=== PATIENT | male | born 1955 | race Caucasian/White ===

== ENCOUNTER 2020-06-05 07:55 | Outpatient (REF) | payer OTHER, SELFPAY ==
[2020-06-05 10:13] LABS: MANUAL DIFF FLAG NO
[2020-06-05 10:16] LABS: Basophils Absolute Auto 0.1 X10*3/uL (0.0-0.2); Basophils Percent Auto 0.7 % (0-2); Eosinophils Absolute Auto 0.5 X10*3/uL (0.0-0.4); Eosinophils Percent Auto 4.8 % (0-4); Hemoglobin 14.6 g/dl (14.0-18.0); Imm Gran Abs Auto 0.06 X10*3/uL (0.00-0.03); Imm Gran Pct Auto 0.6 % (0.0-0.4); Lymphocytes Absolute Auto 2.3 X10*3/uL (1.2-4.9); Mean Corpuscular HGB Conc 32.4 g/dl (31.0-36.0); Mean Corpuscular Hemoglobin 27.4 pg (27.0-33.0); Mean Corpuscular Volume 84.6 fL (80-98); Mean Platelet Volume 10.7 fL (9.4-12.4); Monocytes Absolute Auto 0.8 X10*3/uL (0.1-1.2); Monocytes Percent Auto 7.7 % (2-11); Neutrophils Absolute Auto 6.2 X10*3/uL (2.0-8.3); Neutrophils Percent Auto 63.2 % (45-73); Platelet Count 248 X10*3/uL (160-400); Red Blood Count 5.32 X10*6/uL (4.60-5.80); Red Cell Distribution Width 12.7 % (11.0-16.0); White Blood Count 9.8 X10*3/uL (4.8-10.8)
[2020-06-05 10:38] LABS: Alanine Aminotransferase 24 U/L (0-40); Albumin Level 4.6 g/dL (3.5-5.0); Alkaline Phosphatase 54 U/L (39-117); Anion Gap 13 (12-20); Aspartate Amino Transferase 16 U/L (5-37); Bilirubin Total 0.6 mg/dL (0.0-1.0); Blood Urea Nitrogen 18 mg/dL (9-16); Calcium 9.1 mg/dL (8.4-10.2); Carbon Dioxide 29 mmol/L (22-29); Chloride 102 mmol/L (96-108); Cholesterol 160 mg/dL; Estimated Glomerular Filt Rate > 60; Glucose Fasting 215 mg/dL (60-99); HDL Cholesterol 55 mg/dL; LDL Cholesterol Calculated 86 mg/dl; Potassium 4.8 mmol/l (3.3-5.1); Sodium 139 mmol/L (135-145); Total Protein 6.4 g/dL (6.5-8.0); Triglycerides 97 mg/dL
[2020-06-05 11:23] LABS: Creatinine Urine 152.44 mg/dL; Microalbum/Creatinine Ratio Ur 8.5 ug/mg cr
[2020-06-06 17:52] LABS: LDL Cholesterol Direct 92 mg/dL (<100)
== END 2020-06-05 07:56 | disposition home or self-care (01) ==
LOC: HO.10HDL 07:55
PROVIDERS: Visit Provider Internal Medicine Endocrinology, Diabetes & Metabolism
DX: E11.65 Type 2 diabetes mellitus with hyperglycemia (principal)
CPT/HCPCS: 36415; 80053; 80061; 82043; 83721; 85025

== ENCOUNTER → 2020-06-19 15:29 | Outpatient (BNVA) | payer OTHER, SELFPAY | PROVIDERS: PCP Internal Medicine; Referring Provider Internal Medicine; Visit Provider Internal Medicine Endocrinology, Diabetes & Metabolism | DX: E11.65 Type 2 diabetes mellitus with hyperglycemia (principal); Z79.4 Long term (current) use of insulin; E78.5 Hyperlipidemia, unspecified; E66.9 Obesity, unspecified; I10 Essential (primary) hypertension | CPT/HCPCS: 82947 ==

== ENCOUNTER → 2020-08-29 14:57 | Outpatient (BNVA) | payer OTHER, SELFPAY | PROVIDERS: PCP Internal Medicine; Visit Provider Orthopaedic Surgery ==

== ENCOUNTER → 2020-09-25 15:34 | Outpatient (BNVA) | payer OTHER, SELFPAY | PROVIDERS: PCP Internal Medicine; Visit Provider Internal Medicine Endocrinology, Diabetes & Metabolism | DX: E11.65 Type 2 diabetes mellitus with hyperglycemia (principal); Z79.4 Long term (current) use of insulin; E78.5 Hyperlipidemia, unspecified; I10 Essential (primary) hypertension; E66.9 Obesity, unspecified | CPT/HCPCS: 82947 ==

== ENCOUNTER 2020-12-26 15:16 | Outpatient (REF) | payer OTHER, SELFPAY ==
[2020-12-26 16:30] LABS: MANUAL DIFF FLAG NO
[2020-12-26 16:37] LABS: Basophils Absolute Auto 0.1 X10*3/uL (0.0-0.2); Basophils Percent Auto 0.4 % (0-2); Eosinophils Absolute Auto 0.2 X10*3/uL (0.0-0.4); Eosinophils Percent Auto 1.2 % (0-4); Hematocrit 48.8 % (42-52); Hemoglobin 15.8 g/dl (14.0-18.0); Imm Gran Abs Auto 0.09 X10*3/uL (0.00-0.03); Imm Gran Pct Auto 0.6 % (0.0-0.4); Lymphocytes Absolute Auto 1.4 X10*3/uL (1.2-4.9); Lymphocytes Percent Auto 8.5 % (20-40); Mean Corpuscular HGB Conc 32.4 g/dl (31.0-36.0); Mean Corpuscular Hemoglobin 27.1 pg (27.0-33.0); Mean Corpuscular Volume 83.8 fL (80-98); Mean Platelet Volume 10.8 fL (9.4-12.4); Monocytes Absolute Auto 1.4 X10*3/uL (0.1-1.2); Monocytes Percent Auto 8.8 % (2-11); Neutrophils Absolute Auto 13.2 X10*3/uL (2.0-8.3); Neutrophils Percent Auto 80.5 % (45-73); Platelet Count 216 X10*3/uL (160-400); Red Blood Count 5.82 X10*6/uL (4.60-5.80); Red Cell Distribution Width 13.2 % (11.0-16.0); White Blood Count 16.3 X10*3/uL (4.8-10.8)
[2020-12-26 16:58] LABS: Anion Gap 18 (12-20); Blood Urea Nitrogen 18 mg/dL (9-16); Calcium 9.1 mg/dL (8.4-10.2); Carbon Dioxide 26 mmol/L (22-29); Chloride 99 mmol/L (96-108); Estimated Glomerular Filt Rate > 60; Glucose Random 248 mg/dL (60-115); Potassium 4.7 mmol/L (3.3-5.1); Sodium 138 mmol/L (135-145)
== END 2020-12-26 15:17 | disposition home or self-care (01) ==
LOC: HO.HMGCLDS 15:16
PROVIDERS: PCP Internal Medicine; Visit Provider Nurse Practitioner Family
DX: R10.9 Unspecified abdominal pain (principal)
CPT/HCPCS: 36415; 80048; 85025

== ENCOUNTER → 2021-01-01 15:26 | Outpatient (BNVA) | payer OTHER, SELFPAY | PROVIDERS: PCP Internal Medicine; Visit Provider Internal Medicine Endocrinology, Diabetes & Metabolism | DX: E11.65 Type 2 diabetes mellitus with hyperglycemia (principal); E78.5 Hyperlipidemia, unspecified; I10 Essential (primary) hypertension; E66.9 Obesity, unspecified; Z79.4 Long term (current) use of insulin | CPT/HCPCS: 82947 ==

== ENCOUNTER → 2021-07-18 07:30 | Outpatient (BNVA) | payer OTHER, SELFPAY | PROVIDERS: PCP Internal Medicine; Visit Provider Nurse Practitioner Gerontology | DX: E11.65 Type 2 diabetes mellitus with hyperglycemia (principal); E78.5 Hyperlipidemia, unspecified; E66.9 Obesity, unspecified; I10 Essential (primary) hypertension; Z79.4 Long term (current) use of insulin; Z68.35 Body mass index [BMI] 35.0-35.9, adult | CPT/HCPCS: 82947 ==

== ENCOUNTER 2021-09-13 06:38 | Day surgery (SDC) | payer MEDICARE, SELFPAY ==
[2021-09-13 06:49] VITALS: BMI 32.6
[2021-09-13 07:02] VITALS: BP 133/68; PULSE 66; RESP 16; TEMP 36.3; O2SAT 95
[2021-09-13] MEDS: Lactated Ringers 1,000 ML 80 ML IVCONT (07:17)
--- NOTE | 2021-09-13 07:29 | P.CONAN_ITS ---
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) Diabetes type 2, uncontrolled (Acute) Past Medical History Medical History (Updated 09/09/21 @ 10:58 by Apolonia Pedersen, RN) Diabetes mellitus Diabetes type 2, uncontrolled Dyslipidemia 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 Obesity Obesity (BMI 30-39.9) ELLYN (obstructive sleep apnea) Functional capacity: independent ambulation Family History Family History Father Prostate cancer Mother Hypertension Hypercholesterolemia Maternal Grandmother Alzheimers disease Maternal Grandfather Heart disease Family history of problems with anesthesia: No Surgical History Surgical History (Updated 09/09/21 @ 10:58 by Apolonia Pedersen RN) History of removal of cyst History of tonsillectomy History of uvulectomy Hx of colonoscopy History of Problems with Anesthesia: No Social History Social History Housing: House Alcohol intake: current Alcohol intake frequency: 0-2 drinks per day Alcohol type: wine Patient Tobacco Use Status: Never used Tobacco e-Cigarette/Vaping Use: Never Used Use of substances other than those prescribed or required for medical reasons: Yes Substance Use Frequency: Daily Are you DNR?: No Advance Directives: No Advance Directives Information Provided: Yes Recently lost weight without trying: No Meds Allergies Allergy/AdvReac Type Severity Reaction Status Date / Time No Known Allergies Allergy Verified 09/09/21 10:52 Active Medications: Current Medications Sodium Biphosphate/Sodium Phosphate (Sodium Phosphate,[place]-Dibasic 133 Ml Enema) 133 ml NH ONCE PRN PRN Reason: Poor Colonoscopy Prep Results Home Medications Medication Instructions Recorded Confirmed Last Taken Type dicyclomine 10 mg capsule 10 mg PO QID PRN 09/09/21 09/09/21 Unknown History Exam Exam Date and Time: September 13, 2021 0729 Height,Weight and Vital Signs: Height 5 ft 8 in Weight 97.522 kg Last Vital Signs Temp 97.4 F 09/13/21 07:02 Pulse 66 09/13/21 07:02 Resp 16 09/13/21 07:02 BP 133/68 09/13/21 07:02 Pulse Ox 95 09/13/21 07:02 Airway Mallampati Class: IV TM Dist: >3cm Neck ROM: Full Loose/Missing/Broken Teeth: Yes Heart: rrr Lungs: bl breath sounds Assessment and Plan Assessment Anesthesia Assessment: Anesthesia Plan Discussed Final Anesthetic Review Family History of Problems with Anesthesia: No History of Problems with Anesthesia: No NPO: Yes ASA Class: III Final Preanesthetic Review: Meds/Allgs Chart Reviewed, Consent Obtained/Reviewed and Anes Risks/Benef Reviewed Patient Risk: High Procedure Risk: Intermediate Anesthetic Plan Anesthetic Plan: MAC: Disposition: Standard PACU
--- NOTE | 2021-09-13 08:39 | PM.OP ---
Brief Operative Note Date of Service: 09/13/21 Pre-op diagnosis: Screening Post-op diagnosis: other (Colon polyps) Procedure: Colonoscopy to the cecum and TI with cold snare polypectomy and bx/removal of polyps Surgeon: Tommie Chu Anesthesia: MAC Was an Asbestos Cloth Inspector used for this Procedure?: No Estimated blood loss (mL): 2.0 Pathology: other (A. Cecal polyp B. Transverse colon polyp C. Polyp at 20cm) Condition: stable Disposition: PACU
[2021-09-13 08:42] VITALS: BP 117/59; PULSE 69; RESP 16; TEMP 37.1; O2SAT 96
[2021-09-13 08:57] VITALS: BP 129/65; PULSE 70; RESP 16; TEMP 36.6; O2SAT 97
--- NOTE | 2021-09-13 09:58 | OP_ITS ---
SURGEON: Tommie Chu MD INDICATIONS: The patient presents for evaluation of colorectal cancer screening and personal history of tubular adenoma of the colon. Full consent has been obtained from him for this, including risks of bleeding and perforation. PREOPERATIVE DIAGNOSIS: Colorectal cancer screening and personal history of tubular adenomas of the colon. POSTOPERATIVE DIAGNOSIS: PROCEDURE PERFORMED: Colonoscopy to the cecum and terminal ileum with cold snare polypectomy and biopsy and removal of polyps. ESTIMATED BLOOD LOSS: COMPLICATIONS: ANESTHESIA: Medication used, monitored anesthesia care. ASSISTANTS: SPECIMENS: POSTOPERATIVE DIAGNOSES: Colorectal cancer screening and personal history of tubular adenomas of the colon, colon polyp, sigmoid diverticulosis, and internal hemorrhoids. DESCRIPTION OF PROCEDURE: The patient was placed in the left lateral decubitus position the digital rectal exam revealed no abnormalities. The Olympus video pediatric colonoscope was entered into the rectum and advanced easily to the cecum. Once in the cecum, I did identify normal-appearing cecal pouch other than a 4 mm polyp, which was removed with a cold biopsy forceps completely. The terminal ileum was cannulated and appeared normal. The scope was withdrawn back in the colon. The entire cecum and ileocecal valve otherwise appeared normal. The scope was slowly withdrawn assessing all mucosal surfaces carefully. Preparation was for the most part excellent, although there were some small areas of liquid stool, which were irrigated and suctioned away as best as possible. In the transverse colon was an approximately 4 mm polyp, which was biopsied and completely removed with a cold biopsy forceps. At 20 cm, was an approximately 5 or 6 mm polyp, which was removed with a cold snare polypectomy and recovered by suction. The polypectomy site appeared clean, without any sign of residual polyp nor bleeding. I did not visualize any other polyps, colitis, nor angiodysplasia. There was a mild amount of sigmoid diverticulosis and several diverticula noted in the ascending colon as well. In the rectum, the scope was retroflexed visualizing internal hemorrhoids, but no other pathology. The rectal mucosa appeared normal. Scope was straightened and withdrawn from the patient. He tolerated the procedure well and was returned to the recovery area in stable condition. IMPRESSION: 1. Colon polyps. 2. Diverticulosis. 3. Internal hemorrhoids. PLAN: The results of the pathology will be checked I would recommend a repeat colonoscopy in 5 years for further screening and surveillance. He was advised not to use any aspirin and NSAIDs for 1 week. MD DANIELA Gilman/JAVID / [phone]
== END 2021-09-13 09:39 | disposition home or self-care (01) ==
PROVIDERS: PCP Internal Medicine; Visit Provider Internal Medicine
PROC: 0DJD8ZZ Inspection of Lower Intestinal Tract, Via Natural or Artificial Opening Endoscopic (ICD-10-PCS; CPT 45378; principal; 2021-09-13 07:30)
DX: Z12.11 Encounter for screening for malignant neoplasm of colon (principal); Z86.010 Personal history of colon polyps; Z83.71 Family history of colonic polyps; D12.0 Benign neoplasm of cecum; D12.3 Benign neoplasm of transverse colon; D12.5 Benign neoplasm of sigmoid colon; K57.30 Diverticulosis of large intestine without perforation or abscess without bleeding; K64.8 Other hemorrhoids; I10 Essential (primary) hypertension; E78.5 Hyperlipidemia, unspecified; G47.33 Obstructive sleep apnea (adult) (pediatric); E11.9 Type 2 diabetes mellitus without complications; Z79.4 Long term (current) use of insulin; Z79.899 Other long term (current) drug therapy
CPT/HCPCS: 45385; 45380; 88305

== ENCOUNTER → 2021-10-17 07:32 | Outpatient (BNVA) | payer MEDICARE, SELFPAY | PROVIDERS: PCP Internal Medicine; Visit Provider Nurse Practitioner Gerontology | DX: E11.65 Type 2 diabetes mellitus with hyperglycemia (principal); I10 Essential (primary) hypertension; E78.5 Hyperlipidemia, unspecified; E66.9 Obesity, unspecified; Z68.32 Body mass index [BMI] 32.0-32.9, adult; Z79.4 Long term (current) use of insulin; Z79.899 Other long term (current) drug therapy | CPT/HCPCS: 82947; 99212 ==

== ENCOUNTER → 2021-11-12 07:55 | Outpatient (RCR) | payer OTHER, SELFPAY | END | disposition home or self-care (01) | LOC: HO.OT 04-16 15:02 | PROVIDERS: PCP Internal Medicine; Visit Provider Internal Medicine | DX: M65.30 Trigger finger, unspecified finger (principal) | CPT/HCPCS: 97033; 97035; 97110; 97140 ==

== ENCOUNTER 2022-05-07 07:35 | Outpatient (REF) | payer MEDICARE, SELFPAY ==
[2022-05-07 08:10] LABS: Estimated Average Glucose 174 mg/dL; Hemoglobin A1c % 7.7 %
[2022-05-07 08:35] LABS: Cholesterol 164 mg/dL; Glucose Fasting 172 mg/dL (60-99); HDL Cholesterol 42 mg/dL; LDL Cholesterol Calculated 97 mg/dl; Triglycerides 126 mg/dL
== END 2022-05-07 07:36 | disposition home or self-care (01) ==
LOC: HO.LAB 07:35
PROVIDERS: PCP Internal Medicine; Visit Provider Internal Medicine
DX: E78.5 Hyperlipidemia, unspecified (principal); E11.65 Type 2 diabetes mellitus with hyperglycemia
CPT/HCPCS: 36415; 80061; 82947; 83036

== ENCOUNTER 2022-08-16 07:27 | Outpatient (REF) | payer MEDICARE, SELFPAY ==
[2022-08-16 08:00] LABS: Estimated Average Glucose 189 mg/dL; Hemoglobin A1c % 8.2 %
[2022-08-16 08:29] LABS: Cholesterol 186 mg/dL; Glucose Fasting 213 mg/dL (60-99); HDL Cholesterol 39 mg/dL; LDL Cholesterol Calculated 104 mg/dl; Triglycerides 216 mg/dL
== END 2022-08-16 07:28 | disposition home or self-care (01) ==
LOC: HO.LAB 07:27
PROVIDERS: PCP Internal Medicine; Visit Provider Internal Medicine
DX: E78.5 Hyperlipidemia, unspecified (principal); E11.65 Type 2 diabetes mellitus with hyperglycemia
CPT/HCPCS: 36415; 80061; 82947; 83036

== ENCOUNTER 2022-12-20 07:39 | Outpatient (REF) | payer MEDICARE, SELFPAY ==
[2022-12-20 07:47] LABS: MANUAL DIFF FLAG NO
[2022-12-20 08:09] LABS: Basophils Absolute Auto 0.1 X10*3/uL (0.0-0.2); Basophils Percent Auto 0.9 % (0-2); Eosinophils Absolute Auto 0.7 X10*3/uL (0.0-0.4); Eosinophils Percent Auto 5.8 % (0-4); Hematocrit 44.5 % (42.0-52.0); Hemoglobin 14.4 g/dl (14.0-18.0); Imm Gran Abs Auto 0.09 X10*3/uL (0.00-0.03); Imm Gran Pct Auto 0.8 % (0.0-0.4); Lymphocytes Absolute Auto 2.8 X10*3/uL (1.2-4.9); Lymphocytes Percent Auto 23.7 % (20-40); Mean Corpuscular HGB Conc 32.4 g/dl (31.0-36.0); Mean Corpuscular Hemoglobin 27.2 pg (27.0-33.0); Mean Corpuscular Volume 84.1 fL (80.0-98.0); Mean Platelet Volume 10.3 fL (9.4-12.4); Monocytes Absolute Auto 0.9 X10*3/uL (0.1-1.2); Monocytes Percent Auto 7.4 % (2-11); Neutrophils Absolute Auto 7.3 x10*3/uL (2.0-8.3); Neutrophils Percent Auto 61.4 % (45-73); Platelet Count 250 X10*3/uL (160-400); Red Blood Count 5.29 X10*6/uL (4.60-5.80); Red Cell Distribution Width 13.1 % (11.0-16.0); White Blood Count 11.8 X10*3/uL (4.8-10.8)
[2022-12-20 08:22] LABS: Estimated Average Glucose 160 mg/dL; Hemoglobin A1c % 7.2 %
[2022-12-20 08:41] LABS: Alanine Aminotransferase 29 U/L (0-40); Albumin Level 4.5 g/dL (3.5-5.0); Alkaline Phosphatase 77 U/L (39-117); Anion Gap 16 (12-20); Aspartate Amino Transferase 25 U/L (5-37); Bilirubin Total 0.3 mg/dL (0.0-1.0); Blood Urea Nitrogen 16 mg/dL (9-16); Calcium 10.1 mg/dL (8.4-10.2); Carbon Dioxide 26 mmol/L (22-29); Chloride 106 mmol/L (96-108); Cholesterol 192 mg/dL; Estimated Glomerular Filt Rate > 60; Glucose Fasting 186 mg/dL (60-99); HDL Cholesterol 38 mg/dL; Potassium 4.9 mmol/L (3.3-5.1); Sodium 143 mmol/L (135-145); Total Protein 6.3 g/dL (6.5-8.0); Triglycerides 533 mg/dL
[2022-12-20 09:18] LABS: Creatinine Urine 98.88 mg/dL; Microalbum/Creatinine Ratio Ur 12.1 ug/mg cr
== END 2022-12-20 07:40 | disposition home or self-care (01) ==
LOC: HO.LAB 07:39
PROVIDERS: PCP Internal Medicine; Visit Provider Internal Medicine
DX: E11.69 Type 2 diabetes mellitus with other specified complication (principal); E66.01 Morbid (severe) obesity due to excess calories; N28.9 Disorder of kidney and ureter, unspecified; D64.9 Anemia, unspecified; E78.5 Hyperlipidemia, unspecified; E11.65 Type 2 diabetes mellitus with hyperglycemia
CPT/HCPCS: 36415; 80053; 80061; 82043; 83036; 85025

== ENCOUNTER 2023-01-12 13:26 | Outpatient (REF) | payer MEDICARE, SELFPAY | END 2023-01-12 13:27 | disposition home or self-care (01) | LOC: HO.XRAY 13:26 | PROVIDERS: PCP Internal Medicine; Visit Provider Internal Medicine | DX: M25.551 Pain in right hip (principal) | CPT/HCPCS: 73502 ==

== ENCOUNTER 2023-03-28 08:29 | Outpatient (REF) | payer MEDICARE, SELFPAY ==
[2023-03-28 09:45] LABS: Estimated Average Glucose 154 mg/dL
[2023-03-28 10:01] LABS: Cholesterol 173 mg/dL (<200); Glucose Fasting 205 mg/dL (60-99); HDL Cholesterol 42 mg/dL (>40); LDL Cholesterol Calculated 94 mg/dL (<100); Triglycerides 185 mg/dL (<150)
== END 2023-03-28 08:30 | disposition home or self-care (01) ==
LOC: HO.LAB 08:29
PROVIDERS: PCP Internal Medicine; Visit Provider Internal Medicine
DX: R73.9 Hyperglycemia, unspecified (principal); E78.5 Hyperlipidemia, unspecified
CPT/HCPCS: 36415; 80061; 82947; 83036

== ENCOUNTER 2023-04-15 08:25 | Outpatient (AMB) | payer MEDICARE, SELFPAY ==
--- NOTE | 2023-04-15 08:31 | MHC.PC.OV ---
Vital Signs 04/15/23 08:33 Height 5 ft 8 in Weight 215 lb BMI 32.7 BP 130/76 Blood Pressure Location Rt brachial Position Sitting Pulse 80 Pulse Source Pulse Oximeter Pulse Oximetry (%) 97 Oxygen Delivery Method Room Air Intake Visit Reasons: 3M Follow up Intake Note: Patient is here to follow up on DM, HTN, Dyslipidemia. Compliance Intern Required: No Toy Designer: Not Required per policy Accompanied by: Self / Same As Patient Allergies No Known Allergies Allergy (Verified 04/15/23 08:33) Medication List - Last Reconciled 04/15/23 by Kevin Frey MD atorvastatin 20 mg PO BEDTIME 90 days blood-glucose meter,continuous (Dexcom G6 Honing Machine Try Out Setter) As directed blood-glucose sensor (Dexcom G6 Sensor device) As directed every 10 days blood-glucose transmitter (Dexcom G6 Transmitter device) As directed one every 3 months enalapril maleate 10 mg PO DAILY 90 days insulin degludec (Tresiba FlexTouch U-200 insulin) 28 units (0.14 mL) subcut BEDTIME insulin lispro-aabc (Lyumjev U-100 Insulin) 3-15 units before meals and snacks subcut up to five times a day; 90 days MDD 48 units insulin syringe-needle U-100 (BD Veo Insulin Syringe Ultra-Fine) 5 times a day insulin syringe-needle U-100 (BD Veo Insulin Syringe Ultra-Fine) 1 mL miscellaneous QID 90 days metformin ER 1,000 mg (2 x 500 mg) PO BID 90 days pen needle, diabetic As directed Use 1x daily sildenafil 50 mg PO DAILY PRN Tobacco use date assessed: 04/15/23 Fall risk assessment: No Falls in past year Last assessed Fall Risk: 04/15/23 Dental Screening Dental Screen Date: 04/15/23 Did you have a dental visit in the last 12 months?: Yes Did you have a dental problem in the last 6 months where you did not have access to dental care?: No Was dental information given to patient?: Patient has dentist HPI 3M Follow up HPI Details DM HTN and hyperlipidemia; doing well; requires a Dexcom 7 for his monotoring and A1C in excellent control at 7.0 PFSH Medical History (Updated 01/05/23 @ 12:11 by Kevin Frey MD) ELLYN (obstructive sleep apnea) Obesity Diabetes mellitus Obesity (BMI 30-39.9) Hypertension Dyslipidemia correction (current) use of insulin Diabetes type 2, uncontrolled Surgical History Hx of colonoscopy Hx of colonoscopy History of uvulectomy History of removal of cyst History of tonsillectomy Family History (Updated 04/15/23 @ 08:37 by SADI Grajeda) Father Prostate cancer Mother Hypertension Hypercholesterolemia Maternal Grandmother Alzheimers disease Maternal Grandfather Heart disease Social History Housing: House Alcohol intake: current Alcohol intake frequency: 0-2 drinks per day Alcohol type: wine Patient Tobacco Use Status: Never used Tobacco e-Cigarette/Vaping Use: Never Used Second Hand Smoke Exposure: No service: No Current occupational status: employed 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 Tommie Phillips, Edilia Ortiz, Domingo Marquez and colleagues, with an educational vasiliy from [employer]. Review of Systems Const Denies chills, Denies headache(s) and Denies weight loss ENT Denies headache(s) Card Denies chest pain, Denies syncope, Denies irregular heart rhythm and Denies dyspnea Resp Denies chest congestion, Denies cough and Denies dyspnea GI Denies abdominal pain, Denies change in stool character, Denies nausea and Denies vomiting Musc Denies deformity and Denies joint swelling Neuro Denies syncope and Denies headache(s) Physical exam (Primary Care) Vital Signs: Last Vital Signs Pulse 80 04/15/23 08:33 BP 130/76 04/15/23 08:33 Pulse Ox 97 04/15/23 08:33 Oxygen Delivery Method Room Air 04/15/23 08:33 BMI result Body Mass Index 32.7 Tobacco/Smoking Status: Tobacco use Status Tobacco use date assessed 04/15/23 04/15/23 08:38 Patient Tobacco Use Status Never used Tobacco 04/15/23 08:38 e-Cigarette/Vaping Use Never Used 04/15/23 08:38 Thrive Assessment: Date of Thrive Assessment Date Thrive assessed 08/22/22 04/15/23 08:38 Const General: cooperative, comfortable, no acute distress and alert Neck Neck: Yes no lymphadenopathy Thyroid: Thyroid normal Resp Effort & Inspection: normal respiratory effort Auscultation: clear to auscultation bilaterally Percussion: percussion normal Cardio Jugular venous distension: no JVD Palpation: normal PMI Rate: regular rate Rhythm: regular rhythm Heart sounds: S1 normal heart sound present and S2 normal heart sound present GI Inspection: Yes normal to inspection Palpation (GI): No hepatosplenomegaly present Skin General skin exam: no rashes or lesions noted Extrem General: Yes no clubbing, cyanosis or edema Office Procedures Flu Questionnaire Does the patient have a severe egg allergy?: No Does the patient have severe life threatening allergies?: No Does the patient have a fever or illness today?: No Has the patient ever had Guillain-[place] Syndrome?: No Has the patient ever had any past reaction to a flu shot?: No Immunizations flu vacc [id number] 6mos up(PF) 60 mcg(15 mcgx4)/0.5 mL IM syringe Performing Provider: Kevin Frey MD [facility] Documented (not given) by: SADI Grajeda on 04/15/23 08:39 Reason Not Given: Patient Refused Assessment and Plan Assessment & Plan (1) Diabetes mellitus with coincident hypertension: Code(s): E11.9 - Type 2 diabetes mellitus without complications; I10 - Essential (primary) hypertension Plan: stable; same rx (2) Hypertension: Code(s): I10 - Essential (primary) hypertension Plan: stable; same rx (3) Dyslipidemia: Code(s): E78.5 - Hyperlipidemia, unspecified Plan: stable; same rx Orders: Orders Influenza [id number] Immunization Today Z23 - Encounter for immunization Lipid Panel Today E78.5 - Hyperlipidemia, unspecified Comprehensive [place]. Panel Fast Today N28.9 - Disorder of kidney and ureter, unspecified Hemoglobin A1c Today R73.9 - Hyperglycemia, unspecified Complete Blood Count Auto Diff Today D64.9 - Anemia, unspecified Microalbumin, Random (w Creat) Today E11.69 - Type 2 diabetes mellitus with other specified complication, E66.01 - Morbid (severe) obesity due to excess calories Coding Level of Care Code Est Pt Level 4 (15160) Diagnoses Diabetes mellitus with coincident hypertension E11.9; I10 Hypertension I10 Dyslipidemia E78.5
[2023-04-15 08:33] VITALS: BP 130/76; PULSE 80; O2SAT 97; BMI 32.7
== END 2023-04-15 09:02 | disposition home or self-care (01) ==
PROVIDERS: PCP Internal Medicine; Visit Provider Internal Medicine
DX: E11.9 Type 2 diabetes mellitus without complications (principal); I10 Essential (primary) hypertension; E78.5 Hyperlipidemia, unspecified
CPT/HCPCS: 99214

== ENCOUNTER 2023-09-26 07:41 | Outpatient (REF) | payer MEDICARE, SELFPAY ==
[2023-09-26 07:51] LABS: MANUAL DIFF FLAG NO
[2023-09-26 08:21] LABS: Creatinine Urine 99.17 mg/dL; Microalbum/Creatinine Ratio Ur 15.1 ug/mg cr (<30)
[2023-09-26 08:36] LABS: Basophils Absolute Auto 0.1 X10*3/uL (0.0-0.2); Basophils Percent Auto 0.6 % (0-2); Eosinophils Absolute Auto 0.7 X10*3/uL (0.0-0.4); Eosinophils Percent Auto 5.8 % (0-4); Hemoglobin 15.1 g/dl (14.0-18.0); Imm Gran Abs Auto 0.06 X10*3/uL (0.00-0.03); Imm Gran Pct Auto 0.5 % (0.0-0.4); Lymphocytes Absolute Auto 3.1 X10*3/uL (1.2-4.9); Mean Corpuscular HGB Conc 32.8 g/dl (31.0-36.0); Mean Corpuscular Volume 85.2 fL (80.0-98.0); Mean Platelet Volume 10.1 fL (9.4-12.4); Monocytes Percent Auto 8.7 % (2-11); Neutrophils Absolute Auto 6.3 x10*3/uL (2.0-8.3); Neutrophils Percent Auto 56.4 % (45-73); Platelet Count 271 X10*3/uL (160-400); Red Cell Distribution Width 13.2 % (11.0-16.0); White Blood Count 11.1 X10*3/uL (4.8-10.8)
[2023-09-26 08:48] LABS: Estimated Average Glucose 169 mg/dL; Hemoglobin A1c % 7.5 % (<6.0)
[2023-09-26 08:53] LABS: Alanine Aminotransferase 30 U/L (0-40); Albumin Level 4.5 g/dL (3.5-5.0); Alkaline Phosphatase 68 U/L (39-117); Anion Gap 16 (12-20); Aspartate Amino Transferase 20 U/L (5-37); Bilirubin Total 0.5 mg/dL (0.0-1.0); Blood Urea Nitrogen 13 mg/dL (9-16); Calcium 9.6 mg/dL (8.4-10.2); Carbon Dioxide 29 mmol/L (22-29); Chloride 104 mmol/L (96-108); Cholesterol 159 mg/dL (<200); Estimated Glomerular Filt Rate > 60; Glucose Fasting 132 mg/dL (60-99); HDL Cholesterol 43 mg/dL (>40); LDL Cholesterol Calculated 83 mg/dL (<100); Potassium 4.5 mmol/L (3.3-5.1); Sodium 144 mmol/L (135-145); Total Protein 6.7 g/dL (6.5-8.0); Triglycerides 169 mg/dL (<150)
== END 2023-09-26 07:42 | disposition home or self-care (01) ==
LOC: HO.LAB 07:41
PROVIDERS: PCP Internal Medicine; Visit Provider Internal Medicine
DX: D64.9 Anemia, unspecified (principal); N28.9 Disorder of kidney and ureter, unspecified; E78.5 Hyperlipidemia, unspecified; E11.69 Type 2 diabetes mellitus with other specified complication; E11.65 Type 2 diabetes mellitus with hyperglycemia; E66.01 Morbid (severe) obesity due to excess calories
CPT/HCPCS: 36415; 80053; 80061; 82043; 82570; 83036; 85025

== ENCOUNTER 2023-10-02 14:29 | Outpatient (AMB) | payer MEDICARE, SELFPAY ==
[2023-10-02 14:30] VITALS: BP 122/66; PULSE 67; O2SAT 100; BMI 31.9
--- NOTE | 2023-10-02 14:30 | A.OFFPC_ITS ---
Vital Signs 10/02/23 14:30 Height 5 ft 8 in Weight 210 lb BMI 31.9 BP 122/66 Blood Pressure Location Lt brachial Position Sitting Pulse 67 Pulse Source Pulse Oximeter Pulse Oximetry (%) 100 Oxygen Delivery Method Room Air Intake Visit Reasons: 10/16/23 cataracts left eye Newspaper Inserter Required: No Carpet Installation Specialist: Not Required per policy Accompanied by: Self / Same As Patient Allergies No Known Allergies Allergy (Verified 10/02/23 14:31) Medication List - Last Reconciled 10/02/23 by Kevin Frey MD atorvastatin 20 mg PO BEDTIME 90 days blood-glucose meter,continuous (Dexcom G6 Explosive Technician) As directed blood-glucose sensor (Dexcom G6 Sensor device) As directed every 10 days blood-glucose transmitter (Dexcom G6 Transmitter device) As directed one every 3 months enalapril maleate 10 mg PO DAILY 90 days insulin degludec (Tresiba FlexTouch U-200 insulin) 28 units (0.14 mL) subcut BEDTIME insulin lispro-aabc (Lyumjev U-100 Insulin) 3-15 units before meals and snacks subcut up to five times a day; 90 days MDD 48 units insulin syringe-needle U-100 (BD Veo Insulin Syringe Ultra-Fine) 5 times a day insulin syringe-needle U-100 (BD Veo Insulin Syringe Ultra-Fine) 1 mL miscellaneous QID 90 days metformin ER 1,000 mg (2 x 500 mg) PO BID 90 days pen needle, diabetic As directed Use 1x daily sildenafil 50 mg PO DAILY PRN Tobacco use date assessed: 10/02/23 Fall risk assessment: No Falls in past year Last assessed Fall Risk: 10/02/23 Dental Screening Dental Screen Date: 10/02/23 Did you have a dental visit in the last 12 months?: Yes Did you have a dental problem in the last 6 months where you did not have access to dental care?: No Was dental information given to patient?: Patient has dentist HPI 10/16/23 cataracts left eye HPI Details having bilat cataract surgery; has IDDM and requires a Dexcom 7 to manage fluctuating BS readings; [facility] Medical History ELLYN (obstructive sleep apnea) Obesity Diabetes mellitus Obesity (BMI 30-39.9) Hypertension Dyslipidemia M[facility] (current) use of insulin Diabetes type 2, uncontrolled Surgical History Hx of colonoscopy Hx of colonoscopy History of uvulectomy History of removal of cyst History of tonsillectomy Family History Father Prostate cancer Mother Hypertension Hypercholesterolemia Maternal Grandmother Alzheimers disease Maternal Grandfather Heart disease Social History Housing: House Alcohol intake: current Alcohol intake frequency: 0-2 drinks per day Alcohol type: wine Patient Tobacco Use Status: Never used Tobacco e-Cigarette/Vaping Use: Never Used Second Hand Smoke Exposure: No service: No Current occupational status: employed 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 1. Little interest or pleasure in doing things: several days 2. Feeling down, depressed, or hopeless: more than half the days 3. Trouble falling or staying asleep, or sleeping too much: several days 4. Feeling tired or having little energy: more than half the days 5. Poor appetite or overeating: not at all 6. Feeling bad about yourself - or that you are a failure or have let yourself or your family down: more than half the days 7. Trouble concentrating on things, such as reading the newspaper or watching television: more than half the days 8. Moving or speaking so slowly that other people could have noticed. Or the opposite - being so fidgety or restless that you have been moving around a lot more than usual: not at all 9. Thoughts that you would be better off or of hurting yourself in some way: not at all Total score: 10 Depression Screening Done: Yes Source: Developed by Drs. Tommie Phillips, Edilia Ortiz, Domingo Marquez and colleagues, with an educational vasiliy from [employer]. Thrive Questionnaire Date Thrive assessed: 10/02/23 I am a: Patient What is your living situation today?: I have a steady place to live Within the past 12 months, did the food you bought not last and you didn't have the money to get more?: Never true Within the past 12 months, did you worry whether your food would run out before you got money to buy more?: Never true Do you have trouble paying for medicines?: No Do you have trouble getting transportation to medical appointments?: No Do you have trouble paying your heating and electricity bill?: No Do you have trouble taking care of your child, family member or friend?: No Do you have trouble with day-to-day activities such as bathing, preparing meals, shopping, managing finances, etc.?: No Are you currently unemployed and looking for a job?: No Are you interested in more education?: No Please select the resources that you would like help with: None THRIVE Score: 0 AUDIT C Alcohol Use Questionnaire (AUDIT-C) 1. How often do you have a drink containing alcohol?: 2-3 times a week 2. How many drinks containing alcohol do you have on a typical day when you are drinking?: 1 or 2 Total Score: 3 Score Reviewed/Action Taken: Yes RHINA-7 AMB Questionnaire RHINA-7 Date RHINA - 7 assessed: 10/02/23 Feeling nervous, anxious, or on edge: 1 = Several days Not being able to stop or control worryin = Several days Worrying too much about different things: 1 = Several days Trouble relaxin = Several days Being so restless that it is hard to sit still: 0 = Not at all Becoming easily annoyed or irritable: 2 = More than half the days Feeling afraid as if something awful might happen: 0 = Not at all Total RHINA-7 score (0-4 normal; 5-9 mild; 10-14 moderate; 15-21 severe): 6 Source: Developed by Drs. Tommie Phillips, Edilia Ortiz, Domingo Marquez and colleagues, with an educational vasiliy from [employer]. RHINA-7 Assessment Billing RHINA-7 Assessment Tool: RHINA-7 Assessment 41146 Review of Systems Const Denies chills, Denies fatigue, Denies headache(s) and Denies weight loss Eyes Denies change in vision, Denies diplopia and Denies eye pain ENT Denies vertigo, Denies dizziness, Denies headache(s) and Denies nasal discharge Card Denies chest pain, Denies rapid heart rate and Denies dyspnea on exertion Resp Denies chest congestion, Denies cough, Denies pain with cough and Denies dyspnea on exertion GI Denies abdominal pain, Denies hematochezia and Denies change in bowel habits Musc Denies myalgias, Denies arthralgias and Denies joint swelling Skin/Breast Denies lesions and Denies unusual bruising Neuro Denies vertigo, Denies dizziness, Denies headache(s) and Denies focal weakness Endo Denies fatigue Physical exam (Primary Care) Vital Signs: Last Vital Signs Pulse 67 10/02/23 14:30 BP 122/66 10/02/23 14:30 Pulse Ox 100 10/02/23 14:30 Oxygen Delivery Method Room Air 10/02/23 14:30 BMI result Body Mass Index 31.9 Tobacco/Smoking Status: Tobacco use Status Tobacco use date assessed 10/02/23 10/02/23 14:37 Patient Tobacco Use Status Never used Tobacco 10/02/23 14:37 e-Cigarette/Vaping Use Never Used 10/02/23 14:37 PHQ-9: PHQ-9 Score PHQ-9: Total score 10 10/02/23 14:37 Thrive Assessment: Date of Thrive Assessment Date Thrive assessed 10/02/23 10/02/23 14:37 Const General: cooperative, healthy appearing and no acute distress Orientation/consciousness: oriented to person, oriented to place and oriented to time HENMO Head: Yes normal to inspection, Yes normocephalic and Yes atraumatic Mouth: Normal oral and palatal mucosa present and tongue normal Throat: Yes posterior oropharynx normal and Yes uvula midline Eyes General: appearance normal, both eyes and all related structures Neck Neck: Yes normal visual inspection, Yes full ROM and Yes no lymphadenopathy Thyroid: Thyroid normal Carotids: normal carotid upstroke Chest Chest palpation & inspection: normal inspection of the chest Resp Effort & Inspection: normal respiratory effort and able to speak in complete sentences Auscultation: clear to auscultation bilaterally Cardio Jugular venous distension: no JVD Palpation: normal PMI Rate: regular rate Rhythm: regular rhythm Heart sounds: S1 normal heart sound present and S2 normal heart sound present GI Inspection: Yes normal to inspection Palpation (GI): Soft to palpation and No hepatosplenomegaly present Auscultation: normal bowel sounds General: Yes no CVA tenderness Back/Spine/Pelvis Back: no CVA tenderness Skin General skin exam: no rashes or lesions noted Neuro General: oriented to person, oriented to place and oriented to time Extrem General: Yes normal to inspection and Yes full ROM Assessment and Plan Assessment & Plan (1) Preop exam for internal medicine: Code(s): Z01.818 - Encounter for other preprocedural examination Plan: Low risk for cardiovascular complications; cleared for surgery (2) Diabetes mellitus with coincident hypertension: Code(s): E11.9 - Type 2 diabetes mellitus without complications; I10 - Essential (primary) hypertension Plan: stable; same rx Orders: Orders ECG 12 lead EKG Today R06.09 - Other forms of dyspnea Referrals Cardiology Referral R06.09 - Other forms of dyspnea Coding Level of Care Code Est Pt Level 4 (62561) Diagnoses Preop exam for internal medicine Z01.818 Diabetes mellitus with coincident hypertension E11.9; I10 Additional Codes RHINA-7 Assessment Billing - RHINA-7 Assessment Tool: RHINA-7 Assessment 08157 ([id number])
== END 2023-10-02 14:58 | disposition home or self-care (01) ==
PROVIDERS: PCP Internal Medicine; Visit Provider Internal Medicine
DX: E11.9 Type 2 diabetes mellitus without complications (principal); I10 Essential (primary) hypertension; Z01.818 Encounter for other preprocedural examination
CPT/HCPCS: 99214

== ENCOUNTER 2023-10-13 08:26 | Outpatient (AMB) | payer MEDICARE, SELFPAY ==
[2023-10-13 08:31] VITALS: BP 140/78; PULSE 65; BMI 33.2
--- NOTE | 2023-10-13 08:31 | A.OFFVIS_ITS ---
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 Intake Note: NPV w/ EKG Shake Sawyer Required: No Accompanied by: Self / Same As Patient Allergies No Known Allergies Allergy (Verified 10/13/23 08:32) Medication List - Last Reconciled 10/13/23 by Benjamin Last MD atorvastatin 20 mg PO BEDTIME 90 days blood-glucose meter,continuous (Dexcom G6 Leasing Representative) As directed blood-glucose sensor (Dexcom G6 Sensor device) As directed every 10 days blood-glucose transmitter (Dexcom G6 Transmitter device) As directed one every 3 months enalapril maleate 10 mg PO DAILY 90 days insulin degludec (Tresiba FlexTouch U-200 insulin) 28 units (0.14 mL) subcut BEDTIME insulin lispro-aabc (Lyumjev U-100 Insulin) 3-15 units before meals and snacks subcut up to five times a day; 90 days MDD 48 units insulin syringe-needle U-100 (BD Veo Insulin Syringe Ultra-Fine) 5 times a day insulin syringe-needle U-100 (BD Veo Insulin Syringe Ultra-Fine) 1 mL miscellaneous QID 90 days metformin ER 1,000 mg (2 x 500 mg) PO BID 90 days pen needle, diabetic As directed Use 1x daily sildenafil 50 mg PO DAILY PRN HPI HPI Comments History of Present Illness Details Yayo is here for consultation regarding shortness of breath. Multiple cardiovascular risk factors including obesity, diabetes, hypertension, dyslipidemia among others. He does not have any known cardiovascular disease including coronary disease myocardial infarction or cardiomyopathy. With activities like going up flights of stairs, he states he can get short of breath. However, no angina. He is here for further evaluation. [facility] Medical History ELLYN (obstructive sleep apnea) Obesity Diabetes mellitus Obesity (BMI 30-39.9) Hypertension Dyslipidemia FPC (current) use of insulin Diabetes type 2, uncontrolled Surgical History Hx of colonoscopy Hx of colonoscopy History of uvulectomy History of removal of cyst History of tonsillectomy Family History Father Prostate cancer Mother Hypertension Hypercholesterolemia Maternal Grandmother Alzheimers disease Maternal Grandfather Heart disease Social History Housing: House Alcohol intake: current Alcohol intake frequency: 0-2 drinks per day Alcohol type: wine Patient Tobacco Use Status: Never used Tobacco e-Cigarette/Vaping Use: Never Used Second Hand Smoke Exposure: No service: No Current occupational status: employed 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[employer] Cognitive needs: No Hearing needs: No Vision needs: Yes (glasses) Review of Systems Const Denies chills, Denies daytime sleepiness, Denies fatigue, Denies fever(s), Denies frequent falls, Denies night sweats, Denies snoring, Denies weakness, Denies weight gain and Denies weight loss Eyes Denies loss of vision ENT Denies dizziness and Denies hearing loss Card Denies chest pain, Denies chest pain with activity, Denies syncope, Denies rapid heart rate, Denies edema, Denies claudication, Denies leg edema, Denies lightheadedness, Denies palpitations, Denies dyspnea on exertion and Denies orthopnea Resp Denies cough, Denies excessive phlegm production, Denies dyspnea on exertion, Denies snoring and Denies wheezing GI Denies abdominal pain, Denies hematochezia, Denies change in bowel habits, Denies change in stool character, Denies heartburn, Denies nausea and Denies vomiting Denies hematuria, Denies dysuria and Denies urinary frequency Musc Denies arthralgias, Denies muscle weakness, Denies numbness and Denies tingling Skin/Breast Denies nail changes and Denies rash Neuro Denies Abnormal speech present, Denies dizziness, Denies syncope, Denies frequent falls, Denies loss of vision, Denies memory loss, Denies numbness, Denies tingling and Denies weakness Psych Denies depression and Denies memory loss Endo Denies fatigue and Denies palpitations Aller/Immun Denies wheezing Physical Exam Vital Signs: Last Vital Signs Pulse 65 10/13/23 08:31 BP 140/78 H 10/13/23 08:31 BMI result Body Mass Index 33.2 Const General: comfortable and no acute distress Orientation/consciousness: patient oriented x3 HEENT Other: Unremarkable Head: Yes normal to inspection Neck Neck: Yes normal visual inspection Chest Chest palpation & inspection: normal inspection of the chest Resp Auscultation: clear to auscultation bilaterally Cardio Palpation: normal PMI Heart sounds: S1 normal heart sound present, S2 normal heart sound present, no gallops, no murmurs and no rubs GI Palpation (GI): Soft to palpation Back/Spine/Pelvis Other: unremarkable Skin General skin exam: no rashes or lesions noted Neuro General: patient oriented x3 Speech: No Abnormal speech present Extrem General: Yes normal to inspection Psych Mental Status: mental status grossly normal Office Procedures EKG Details: EKG with sinus rhythm at 65/Min; no significant ST-T changes and otherwise unremarkable[place]. [id number]-[id number], Complete Assessment & Plan Assessment & Plan (1) SOB (shortness of breath) on exertion: Code(s): R06.02 - Shortness of breath Plan Baseline EKG is unremarkable. Multiple cardiovascular risk factors as listed above. We will proceed with further evaluation with an echocardiogram and stress test assess for any obstructive CAD or cardiomyopathy. Follow-up after the above. Orders: Orders CA stress test Today R06.02 - Shortness of breath, R07.2 - Precordial pain NM cardiolite stress test Today R06.02 - Shortness of breath, R07.2 - Precordial pain CA echo transthoracic complete Today I25.10 - Atherosclerotic heart disease of [place] coronary artery without angina pectoris, R06.02 - Shortness of breath Coding Level of Care Code New Pt Level 4 (53331) Diagnoses SOB (shortness of breath) on exertion R06.02 CPT Codes EKG - CPT: 31413-[id number], Complete ([id number])
== END 2023-10-13 08:48 | disposition home or self-care (01) ==
PROVIDERS: PCP Internal Medicine; Visit Provider Internal Medicine
DX: R06.02 Shortness of breath (principal)
CPT/HCPCS: 93010; 99204

== ENCOUNTER → 2023-10-13 08:26 | Outpatient (BNVA) | payer MEDICARE, SELFPAY | PROVIDERS: PCP Internal Medicine; Visit Provider Internal Medicine | DX: R06.02 Shortness of breath (principal) | CPT/HCPCS: 93005; 99202 ==

== ENCOUNTER 2024-01-12 08:00 | Outpatient (RCR) | payer MEDICARE, SELFPAY | END 2024-01-20 11:54 | disposition home or self-care (01) | LOC: HO.PT 08:00 | PROVIDERS: PCP Internal Medicine; Visit Provider Orthopaedic Surgery | DX: M25.551 Pain in right hip (principal) | CPT/HCPCS: 97110; 97116; 97162 ==

== ENCOUNTER 2024-03-07 09:58 | Outpatient (AMB) | payer MEDICARE, SELFPAY ==
[2024-03-07 10:04] VITALS: BP 140/68; PULSE 68; BMI 31.5
--- NOTE | 2024-03-07 10:04 | MHC.OFFVIS ---
Vital Signs 03/07/24 10:04 Height 5 ft 8 in Weight 207 lb 3.752 oz BMI 31.5 BP 140/68 H Blood Pressure Location Lt brachial Position Sitting Pulse 68 Pulse Source Pulse Oximeter Intake Visit Reasons: followup after echo/stress test Allergies No Known Allergies Allergy (Verified 10/13/23 08:32) Medication List - Last Reconciled 03/07/24 by Benjamin Last MD atorvastatin 20 mg PO BEDTIME 90 days blood-glucose meter,continuous (Dexcom G6 Exhaust Emissions Inspector) As directed blood-glucose sensor (Dexcom G6 Sensor device) As directed every 10 days blood-glucose transmitter (Dexcom G6 Transmitter device) As directed one every 3 months enalapril maleate 10 mg PO DAILY 90 days insulin degludec (Tresiba FlexTouch U-200 insulin) 28 units (0.14 mL) subcut BEDTIME insulin lispro-aabc (Lyumjev U-100 Insulin) 3-15 units before meals and snacks subcut up to five times a day; 90 days MDD 48 units insulin syringe-needle U-100 (BD Veo Insulin Syringe Ultra-Fine) 5 times a day metformin ER 1,000 mg (2 x 500 mg) PO BID 90 days pen needle, diabetic As directed Use 1x daily sildenafil 50 mg PO DAILY PRN HPI Comments Details: Yayo returns for follow-up. In the past, he was seen regarding shortness of breath. Multiple risk factors including obesity, diabetes, hypertension, dyslipidemia. He was recommended undergo an echocardiogram and stress test but apparently he did not want to pursue it at that time. Subsequently, he had to go for hip surgery and in that context he had these done at [facility]. In the stress test, the EKG portion was abnormal but the nuclear portion thought to be within normal limits. He does not have any other complaints like angina. Recovering from hip surgery. 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 Diabetes type 2, uncontrolled Surgical History Hx of colonoscopy Hx of colonoscopy History of uvulectomy History of removal of cyst History of tonsillectomy Family History Father Prostate cancer Mother Hypertension Hypercholesterolemia Maternal Grandmother Alzheimers disease Maternal Grandfather Heart disease Social History Housing: House Alcohol intake: current Alcohol intake frequency: 0-2 drinks per day Alcohol type: wine Patient Tobacco Use Status: Never used Tobacco e-Cigarette/Vaping Use: Never Used Second Hand Smoke Exposure: No service: No Current occupational status: employed 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[email or web address] Cognitive needs: No Hearing needs: No Vision needs: Yes (glasses) Review of Systems Const Denies weakness ENT Denies dizziness Card Denies chest pain, Denies chest pain with activity, Denies syncope, Denies rapid heart rate, Denies pedal edema, Denies edema, Denies leg edema, Denies lightheadedness, Denies palpitations, Denies dyspnea, Denies dyspnea on exertion and Denies orthopnea Resp Denies cough, Denies dyspnea and Denies dyspnea on exertion GI Denies hematochezia and Denies change in stool character Musc Denies abnormal gait, Denies muscle cramps, Denies muscle weakness, Denies numbness, Denies radiating pain into limb and Denies tingling Neuro Denies abnormal gait, Denies dizziness, Denies syncope, Denies numbness, Denies tingling and Denies weakness Endo Denies palpitations Physical Exam Vital Signs: Last Vital Signs Pulse 68 03/07/24 10:04 BP 140/68 H 03/07/24 10:04 BMI result Body Mass Index 31.5 Const General: comfortable and no acute distress Orientation/consciousness: patient oriented x3 HEENT Other: Unremarkable Head: Yes normal to inspection Neck Neck: Yes normal visual inspection Chest Chest palpation & inspection: normal inspection of the chest Resp Auscultation: clear to auscultation bilaterally Cardio Palpation: normal PMI Heart sounds: S1 normal heart sound present, S2 normal heart sound present, no gallops, no murmurs and no rubs GI Palpation (GI): Soft to palpation Back/Spine/Pelvis Other: unremarkable Skin General skin exam: no rashes or lesions noted Neuro General: patient oriented x3 Extrem General: Yes normal to inspection Psych Mental Status: mental status grossly normal Assessment & Plan Assessment & Plan (1) Abnormal stress electrocardiogram test using treadmill: Code(s): R94.39 - Abnormal result of other cardiovascular function study Category: Medical (2) Diabetes mellitus: Code(s): E11.9 - Type 2 diabetes mellitus without complications Category: Medical (3) Hypertension: Code(s): I10 - Essential (primary) hypertension Category: Medical (4) Dyslipidemia: Code(s): E78.5 - Hyperlipidemia, unspecified Category: Medical Plan Cardiac studies reviewed. In the echocardiogram, LVEF 55-65%. No wall motion abnormalities. Mild diastolic dysfunction. No significant valvular findings. In the exercise stress test, he was able to exercise for 8.2 METS on Edwardo protocol; reached 79% of target heart rate; no angina but there was horizontal ST depression. PVCs noted. Perfusion component was normal. Overall, multiple cardiovascular risk factors, abnormal EKG portion of stress test but normal perfusion portion. Recommend coronary CTA further evaluation. Discussed with patient and he is agreeable. Based on findings, can plan further care. Orders: Orders CT Cardiac Coronary Angio Today I25.10 - Atherosclerotic heart disease of [place] coronary artery without angina pectoris Basic Metabolic Panel Today E11.9 - Type 2 diabetes mellitus without complications, I10 - Essential (primary) hypertension Coding Level of Care Code Est Pt Level 4 (43475) Diagnoses Abnormal stress electrocardiogram test using treadmill R94.39 Diabetes mellitus E11.9 Hypertension I10 Dyslipidemia E78.5
== END 2024-03-07 10:42 | disposition home or self-care (01) ==
PROVIDERS: PCP Internal Medicine; Visit Provider Internal Medicine
DX: R94.39 Abnormal result of other cardiovascular function study (principal); E11.9 Type 2 diabetes mellitus without complications; I10 Essential (primary) hypertension; E78.5 Hyperlipidemia, unspecified
CPT/HCPCS: 99214

== ENCOUNTER → 2024-03-07 09:58 | Outpatient (BNVA) | payer MEDICARE, SELFPAY | PROVIDERS: PCP Internal Medicine; Visit Provider Internal Medicine | DX: R94.39 Abnormal result of other cardiovascular function study (principal); E11.9 Type 2 diabetes mellitus without complications; E78.5 Hyperlipidemia, unspecified; I10 Essential (primary) hypertension | CPT/HCPCS: 99212 ==

== ENCOUNTER 2024-04-06 11:47 | Outpatient (AMB) | payer MEDICARE, SELFPAY ==
[2024-04-06 11:48] VITALS: BP 142/70; PULSE 72; O2SAT 97; BMI 31.0
--- NOTE | 2024-04-06 11:48 | A.OFFPC_ITS ---
Vital Signs 04/06/24 11:48 Height 5 ft 8 in Weight 204 lb BMI 31.0 BP 142/70 H Blood Pressure Location Lt brachial Position Sitting Pulse 72 Pulse Source Pulse Oximeter Pulse Oximetry (%) 97 Oxygen Delivery Method Room Air Intake Visit Reasons: F/U DM Jboss Architect Required: No Accompanied by: Self / Same As Patient Allergies No Known Allergies Allergy (Verified 04/06/24 11:53) Medication List - Last Reconciled 04/06/24 by Kevin Frey MD atorvastatin 20 mg PO BEDTIME 90 days blood-glucose meter,continuous (Dexcom G6 Engine Lathe Set Up Operator Tool) As directed blood-glucose sensor (Dexcom G6 Sensor device) As directed every 10 days blood-glucose transmitter (Dexcom G6 Transmitter device) As directed one every 3 months enalapril maleate 10 mg PO DAILY 90 days insulin degludec (Tresiba FlexTouch U-200 insulin) 28 units (0.14 mL) subcut BEDTIME insulin lispro-aabc (Lyumjev U-100 Insulin) 3-15 units before meals and snacks subcut up to five times a day; 90 days MDD 48 units insulin syringe-needle U-100 (BD Veo Insulin Syringe Ultra-Fine) 5 times a day metformin ER 1,000 mg (2 x 500 mg) PO BID 90 days pen needle, diabetic As directed Use 1x daily sildenafil 50 mg PO DAILY PRN Tobacco use date assessed: 10/02/23 Fall risk assessment: No Falls in past year Last assessed Fall Risk: 04/06/24 Dental Screening Dental Screen Date: 10/02/23 HPI F/U DM HPI Details Has Insulin dependent DM and requires a Dexcom 7 to manage his fluctuating blood glucose readings; doing well; had a right hip arthroplasty and recovering [facility] Medical History ELLYN (obstructive sleep apnea) Obesity Diabetes mellitus Obesity (BMI 30-39.9) Hypertension Dyslipidemia 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 Diabetes type 2, uncontrolled Surgical History Hx of colonoscopy Hx of colonoscopy History of uvulectomy History of removal of cyst History of tonsillectomy Family History Father Prostate cancer Mother Hypertension Hypercholesterolemia Maternal Grandmother Alzheimers disease Maternal Grandfather Heart disease Social History Housing: House Alcohol intake: current Alcohol intake frequency: 0-2 drinks per day Alcohol type: wine Patient Tobacco Use Status: Never used Tobacco e-Cigarette/Vaping Use: Never Used Second Hand Smoke Exposure: No service: No Current occupational status: employed 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 1. Little interest or pleasure in doing things: several days 2. Feeling down, depressed, or hopeless: more than half the days 3. Trouble falling or staying asleep, or sleeping too much: several days 4. Feeling tired or having little energy: more than half the days 5. Poor appetite or overeating: not at all 6. Feeling bad about yourself - or that you are a failure or have let yourself or your family down: more than half the days 7. Trouble concentrating on things, such as reading the newspaper or watching television: more than half the days 8. Moving or speaking so slowly that other people could have noticed. Or the opposite - being so fidgety or restless that you have been moving around a lot more than usual: not at all 9. Thoughts that you would be better off or of hurting yourself in some way: not at all Total score: 10 Source: Developed by Drs. Tommie Phillips, Domingo Goff and colleagues, with an educational vasiliy from [employer]. Thrive Questionnaire Date Thrive assessed: 10/02/23 Are you currently unemployed and looking for a job?: No AUDIT C Alcohol Use Questionnaire (AUDIT-C) 2. How many drinks containing alcohol do you have on a typical day when you are drinking?: 3 or 4 3. How often do you have six or more drinks on one occasion?: Less than monthly Total Score: 2 RHINA-7 AMB Questionnaire RHINA-7 Date RHINA - 7 assessed: 10/02/23 Source: Developed by Drs. Tommie Phillips, Domingo Goff and colleagues, with an educational vasiliy from [employer]. Review of Systems Const Denies chills, Denies headache(s) and Denies weight loss ENT Denies headache(s) Card Denies chest pain, Denies syncope, Denies irregular heart rhythm and Denies dyspnea Resp Denies chest congestion, Denies cough and Denies dyspnea GI Denies abdominal pain, Denies change in stool character, Denies nausea and Denies vomiting Musc Denies deformity and Denies joint swelling Neuro Denies syncope and Denies headache(s) Physical exam (Primary Care) Vital Signs: Last Vital Signs Pulse 72 04/06/24 11:48 BP 142/70 H 04/06/24 11:48 Pulse Ox 97 04/06/24 11:48 Oxygen Delivery Method Room Air 04/06/24 11:48 BMI result Body Mass Index 31.0 Tobacco/Smoking Status: Tobacco use Status Tobacco use date assessed 10/02/23 04/06/24 11:52 Patient Tobacco Use Status Never used Tobacco 04/06/24 11:52 e-Cigarette/Vaping Use Never Used 04/06/24 11:52 PHQ-9: PHQ-9 Score PHQ-9: Total score 10 04/06/24 11:55 Thrive Assessment: Date of Thrive Assessment Date Thrive assessed 10/02/23 04/06/24 11:52 Const General: cooperative, comfortable, no acute distress and alert Neck Neck: Yes no lymphadenopathy Thyroid: Thyroid normal Resp Effort & Inspection: normal respiratory effort Auscultation: clear to auscultation bilaterally Percussion: percussion normal Cardio Jugular venous distension: no JVD Palpation: normal PMI Rate: regular rate Rhythm: regular rhythm Heart sounds: S1 normal heart sound present and S2 normal heart sound present GI Inspection: Yes normal to inspection Palpation (GI): No hepatosplenomegaly present Skin General skin exam: no rashes or lesions noted Extrem General: Yes no clubbing, cyanosis or edema Results AMB Hemoglobin A1c AMB Hemoglobin A1c 7.2 % Last Edit by Arielle Jimenez CMA on 04/06/24 11:58 Results Reviewed Results Reviewed: Laboratory Last Values Hgb A1c (Clinic) 7.2 % (4.0-6.0) H 04/06/24 11:55 Assessment and Plan Assessment & Plan (1) Diabetes mellitus with coincident hypertension: Code(s): E11.9 - Type 2 diabetes mellitus without complications; I10 - Essential (primary) hypertension Plan: stable; same rx Orders: Orders Lipid Panel Today Z13.220 - Encounter for screening for lipoid disorders Complete Blood Count Auto Diff Today Z13.0 - Encounter for screening for diseases of the blood and blood-forming organs and certain disorders involving the immune mechanism Comprehensive [place]. Panel Fast Today Z13.9 - Encounter for screening, unspecified Hemoglobin A1c Today R73.9 - Hyperglycemia, unspecified AMB Hemoglobin A1c Today E11.9 - Type 2 diabetes mellitus without complications, I10 - Essential (primary) hypertension Medications: Refilled insulin syringe-needle U-100 (BD Veo Insulin Syringe Ultra-Fine) 5 times a day 450 ea 0RF E11.65 - Type 2 diabetes mellitus with hyperglycemia Coding Level of Care Code Est Pt Level 3 (72296) Diagnoses Diabetes mellitus with coincident hypertension E11.9; I10
== END 2024-04-06 12:17 | disposition home or self-care (01) ==
PROVIDERS: PCP Internal Medicine; Visit Provider Internal Medicine
DX: E11.9 Type 2 diabetes mellitus without complications (principal); I10 Essential (primary) hypertension

== ENCOUNTER → 2024-04-06 11:47 | Outpatient (BNVA) | payer MEDICARE, SELFPAY | PROVIDERS: PCP Internal Medicine; Visit Provider Internal Medicine | DX: E11.65 Type 2 diabetes mellitus with hyperglycemia (principal); I10 Essential (primary) hypertension; Z79.4 Long term (current) use of insulin | CPT/HCPCS: 83036; 96127; 99212 ==

== ENCOUNTER 2024-05-07 08:29 | Outpatient (REF) | payer MEDICARE, SELFPAY ==
[2024-05-07 08:39] LABS: MANUAL DIFF FLAG NO
[2024-05-07 09:18] LABS: Basophils Absolute Auto 0.1 X10*3/uL (0.0-0.2); Basophils Percent Auto 0.8 % (0-2); Eosinophils Absolute Auto 0.6 X10*3/uL (0.0-0.4); Eosinophils Percent Auto 6.5 % (0-4); Hematocrit 42.6 % (42.0-52.0); Hemoglobin 13.8 g/dl (14.0-18.0); Imm Gran Abs Auto 0.04 X10*3/uL (0.00-0.03); Imm Gran Pct Auto 0.5 % (0.0-0.4); Lymphocytes Absolute Auto 1.9 X10*3/uL (1.2-4.9); Lymphocytes Percent Auto 22.2 % (20-40); Mean Corpuscular HGB Conc 32.4 g/dl (31.0-36.0); Mean Corpuscular Hemoglobin 27.2 pg (27.0-33.0); Mean Platelet Volume 10.4 fL (9.4-12.4); Monocytes Percent Auto 12.1 % (2-11); Neutrophils Percent Auto 57.9 % (45-73); Platelet Count 228 X10*3/uL (160-400); Red Blood Count 5.07 X10*6/uL (4.60-5.80); Red Cell Distribution Width 13.5 % (11.0-16.0); White Blood Count 8.6 X10*3/uL (4.8-10.8)
[2024-05-07 09:34] LABS: Estimated Average Glucose 163 mg/dL; Hemoglobin A1C 199.3153 umol/L; Hemoglobin A1c % 7.3 % (<6.0)
[2024-05-07 09:37] LABS: Alanine Aminotransferase 39 U/L (0-40); Albumin Level 4.4 g/dL (3.5-5.0); Alkaline Phosphatase 88 U/L (39-117); Anion Gap 13 (12-20); Aspartate Amino Transferase 23 U/L (5-37); Bilirubin Total 0.2 mg/dL (0.0-1.0); Blood Urea Nitrogen 15 mg/dL (9-16); Carbon Dioxide 32 mmol/L (22-29); Chloride 102 mmol/L (96-108); Cholesterol 147 mg/dL (<200); Estimated Glomerular Filt Rate > 60; Glucose Fasting 147 mg/dL (60-99); HDL Cholesterol 40 mg/dL (>40); LDL Cholesterol Calculated 77 mg/dL (<100); Potassium 4.5 mmol/L (3.3-5.1); Sodium 142 mmol/L (135-145); Total Protein 6.4 g/dL (6.5-8.0); Triglycerides 150 mg/dL (<150)
== END 2024-05-07 08:30 | disposition home or self-care (01) ==
LOC: HO.LAB 08:29
PROVIDERS: PCP Internal Medicine; Visit Provider Internal Medicine
DX: R73.9 Hyperglycemia, unspecified (principal); Z13.0 Encounter for screening for diseases of the blood and blood-forming organs and certain disorders involving the immune mechanism; Z13.220 Encounter for screening for lipoid disorders
CPT/HCPCS: 36415; 80053; 80061; 83036; 85025

== ENCOUNTER 2024-06-28 14:43 | Outpatient (AMB) | payer MEDICARE, SELFPAY ==
--- NOTE | 2024-06-28 14:46 | MHC.OFFVIS ---
Vital Signs 06/28/24 14:47 Height 5 ft 8 in Weight 213 lb 13.574 oz BMI 32.5 BP 130/64 Blood Pressure Location Lt brachial Position Sitting Pulse 74 Pulse Source Pulse Oximeter Intake Visit Reasons: f/up CTA [facility] Allergies No Known Allergies Allergy (Verified 04/06/24 11:53) Medication List - Last Reconciled 06/28/24 by Benjamin Last MD atorvastatin 20 mg PO BEDTIME 90 days blood-glucose meter,continuous (Dexcom G6 Jacquard Plate Maker) As directed blood-glucose sensor (Dexcom G6 Sensor device) As directed every 10 days blood-glucose transmitter (Dexcom G6 Transmitter device) As directed one every 3 months enalapril maleate 10 mg PO DAILY 90 days insulin degludec (Tresiba FlexTouch U-200 insulin) 28 units (0.14 mL) subcut BEDTIME insulin lispro-aabc (Lyumjev U-100 Insulin) 3-15 units before meals and snacks subcut up to five times a day; 90 days MDD 48 units insulin syringe-needle U-100 (BD Veo Insulin Syringe Ultra-Fine) 5 times a day metformin ER 1,000 mg (2 x 500 mg) PO BID 90 days pen needle, diabetic As directed Use 1x daily sildenafil 50 mg PO DAILY PRN tadalafil (Cialis) 20 mg PO DAILY PRN HPI Comments Details: Yayo returns for follow-up. In the past, he was seen regarding shortness of breath. Multiple risk factors including obesity, diabetes, hypertension, dyslipidemia. He was recommended to undergo an echocardiogram and stress test but apparently he did not want to pursue it at that time. Subsequently, he had to go for hip surgery and in that context he had these done at [facility]. In the stress test, the EKG portion was abnormal but the nuclear portion thought to be within normal limits. He does not have any other complaints like angina. Recovering from hip surgery. Since last seen, he has completed a coronary CTA which showed only mild disease in the LAD but otherwise unremarkable. [facility] Medical History ELLYN (obstructive sleep apnea) Obesity Diabetes mellitus Obesity (BMI 30-39.9) Hypertension Dyslipidemia detention (current) use of insulin Diabetes type 2, uncontrolled Surgical History Hx of colonoscopy Hx of colonoscopy History of uvulectomy History of removal of cyst History of tonsillectomy Family History Father Prostate cancer Mother Hypertension Hypercholesterolemia Maternal Grandmother Alzheimers disease Maternal Grandfather Heart disease Social History Housing: House Alcohol intake: current Alcohol intake frequency: 0-2 drinks per day Alcohol type: wine Patient Tobacco Use Status: Never used Tobacco e-Cigarette/Vaping Use: Never Used Second Hand Smoke Exposure: No service: No Current occupational status: employed 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[employer] [place] Cognitive needs: No Hearing needs: No Vision needs: Yes (glasses) Review of Systems Const Denies weakness ENT Denies dizziness Card Denies chest pain, Denies chest pain with activity, Denies syncope, Denies rapid heart rate, Denies pedal edema, Denies edema, Denies leg edema, Denies lightheadedness, Denies palpitations, Denies dyspnea, Denies dyspnea on exertion and Denies orthopnea Resp Denies cough, Denies dyspnea and Denies dyspnea on exertion GI Denies hematochezia and Denies change in stool character Musc Denies abnormal gait, Denies muscle cramps, Denies muscle weakness, Denies numbness, Denies radiating pain into limb and Denies tingling Neuro Denies abnormal gait, Denies dizziness, Denies syncope, Denies numbness, Denies tingling and Denies weakness Endo Denies palpitations Physical Exam Vital Signs: Last Vital Signs Pulse 74 06/28/24 14:47 BP 130/64 06/28/24 14:47 BMI result Body Mass Index 32.5 Const General: comfortable and no acute distress Orientation/consciousness: patient oriented x3 HEENT Other: Unremarkable Head: Yes normal to inspection Neck Neck: Yes normal visual inspection Chest Chest palpation & inspection: normal inspection of the chest Resp Auscultation: clear to auscultation bilaterally Cardio Palpation: normal PMI Heart sounds: S1 normal heart sound present, S2 normal heart sound present, no gallops, no murmurs and no rubs GI Palpation (GI): Soft to palpation Back/Spine/Pelvis Other: unremarkable Skin General skin exam: no rashes or lesions noted Neuro General: patient oriented x3 Extrem General: Yes normal to inspection Psych Mental Status: mental status grossly normal Assessment & Plan Assessment & Plan (1) Abnormal stress electrocardiogram test using treadmill: Code(s): R94.39 - Abnormal result of other cardiovascular function study Category: Medical (2) Atherosclerotic cardiovascular disease: Code(s): I25.10 - Atherosclerotic heart disease of [place] coronary artery without angina pectoris Category: Medical (3) Diabetes mellitus: Code(s): E11.9 - Type 2 diabetes mellitus without complications Category: Medical (4) Hypertension: Code(s): I10 - Essential (primary) hypertension Category: Medical (5) Dyslipidemia: Code(s): E78.5 - Hyperlipidemia, unspecified Category: Medical Plan Cardiac studies reviewed. In the echocardiogram, LVEF 55-65%. No wall motion abnormalities. Mild diastolic dysfunction. No significant valvular findings. In the exercise stress test, he was able to exercise for 8.2 METS on Edwardo protocol; reached 79% of target heart rate; no angina but there was horizontal ST depression. PVCs noted. Perfusion component was normal. In the cardiac catheterization, 25% stenosis in the mid LAD. Otherwise, normal coronaries. Essentially, multiple risk factors including diabetes, hypertension, dyslipidemia, mild coronary disease. Mainly needs aggressive risk factor modification of the above comorbidities. If any new or concerning symptoms from cardiac, advised him to contact us immediately. He understands. Total time spent including review of data, counseling, documentation, coordination of care-31 minutes. Coding Level of Care Code Est Pt Level 4 (23551) Diagnoses Abnormal stress electrocardiogram test using treadmill R94.39 Atherosclerotic cardiovascular disease I25.10 Diabetes mellitus E11.9 Hypertension I10 Dyslipidemia E78.5
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
--- OUTSIDE RECORDS SUMMARY | 2024-06-28 14:46 | XMS_ITS | Patient Health Record ---
Author Organization [facility] Address [address] [place] [address] Care Team Providers Care Finisher Hot Strip Name Role Phone Kevin Frey MD Primary Care Provider Unavaila ble Black, Marie Unavailable [phone] Allergies No Known Allergies Results Component Value Reference Range Notes HEMOGLOBIN A1C (GLYCOHEMOGLO BIN) Reviewed date:12/10/2023 08:15:35 AM Interpretation: Performing Lab: Notes/Report: HEMOGLOBIN A1C % (HH) 7.5 HEMOGLOBIN A1C (GLYCOHEMOGLO BIN) Reviewed date:03/17/2024 09:53:02 AM Interpretation: Performing Lab: Notes/Report: HEMOGLOBIN A1C % (HH) 8.1 HEMOGLOBIN A1C (GLYCOHEMOGLO BIN) Reviewed date:06/20/2024 08:35:17 AM Interpretation: Performing Lab: Notes/Report: HEMOGLOBIN A1C % (HH) 7.3 Reason For Referral No Information Medications Medication SIG (Take, Route, Frequency, Duration) Notes Start Date End Date Status NovoLOG 100 UNIT/ML 15 to 25 unit Subcutaneous daily Not-Taking metFORMIN HCl 1000 MG 1 tablet with meal s Orally Twice a day Active Ammonium Lactate 12 % 1 application Exte rnally Twice a day for 30 days Active Atorvastatin Calcium Active Lovastatin Not-Takin g Lyumjev 100 UNIT/ML INJECT 5 TO 35 UNITS UNDER THE SKIN BEFORE MEALS AND SNACKS 5 TIMES DAILY DIRECTED Injection for 27 Active HumaLOG 100 UNIT/ML as directed Subcutaneous Not-Taking Sildenafil Citrate N ot-Taking Extra Depth Orthopedic Shoes (1 Pair) with Customized Heat Molded Multidensity Innersoles (3 Pair) as directed Dx: NIDDM/Polyneuropathy (E11.42), Hammertoe Foot Deformity (M20.41,M20.42), Preulcerative Skin Lesion(s) (L85.1 09/23/2021 Not-Taking Basaglar KwikPen 100 UNIT/ML as directed Subcutaneous Not -Taking Enalapril Maleate Ac tive Tresiba Active Tresiba FlexTouch No t-Taking FreeStyle System Act sendy Fiasp 100 UNIT/ML Subcutaneous Not-Taking Immunizations Vaccine Route Administration Date Status Comme nts COVID-19 Pfizer BioNTech Vaccine Unknown 05/02/2021 Administered First Dose:09/24/2020 Second Dose: 10/31/2020 Influenza Unknown 03/24/2016 Administered Influenza Unknown 05/12/2017 Administered Influenza Unknown 05/13/2018 Administered Influenza Unknown 04/14/2019 Administered Influenza Unknown 04/13/2020 Administered Influenza Unknown 05/02/2021 Administered Influenza Unknown 04/16/2022 Administered Influenza Unknown 05/13/2023 Administered Pneumococcal Unknown 07/31/2016 Refused Social History Tobacco Use: Social History Observation Description Date Details (start date - stop date) Never Smoker NA - NA Tobacco Use/Smoking Question Answer Notes Are you a: nonsmoker Additional Findings: Tobacco Non-User Current no n-smoker Alcohol Screen Question Answer Notes Did you have a drink contain ing alcohol in the past year? Yes How often did you have a dri nk containing alcohol in the past year? 4 or more times a week (4 points) How often did you have 6 or more drinks on one occasion in the past year? Daily or almost daily (4 points) Points 8 Interpretation Positive Tobacco use other than smoking: Question Answer Notes Are you an other tobacco user? No Problems Problem Type SNOMED Code ICD Code Onset Dates Problem Status W/U Status Risk Notes Problem Acquired hammer toe of right foot (9755061301103973 ) Other hammer toe(s) (acquired), right foot (M20.41) Active confirmed Problem Acquired hammer toe of left foot (2279927094210004 ) Other hammer toe(s) (acquired), left foot (M20.42) Active confirmed Problem Non-pressure ulcer lower limb (021123553) Non-pressure chronic ulcer of other part of left foot limited to breakdown of skin (L97.521) Active confirmed Problem Polyneuropathy due to type 2 diabetes mellitus (308123260) Type 2 diabetes mellitus with diabetic polyneuropathy (E11.42) Active confirmed Problem Localized, primary osteoarthritis of the ankle and/or foot (194445750) Arthritis of joint of lesser toe, left (M19.072) Active confirmed Problem Localized, primary osteoarthritis of the ankle and/or foot (020329902) Arthritis of joint of lesser toe, right (M19.071) Active confirmed Vital Signs Height 5ft 7in in 06/20/2024 Weight 210 lbs 06/20/2024 BMI 32.89 kg/m2 06/20/2024 Procedures Procedure Date Ordered Date Performed Result Body Sit e 43893-FSLR SKIN LESIONS, OVER 4 07/23/2023 N/A A0394-ZETUINOR DYSTROPHIC NAILS ANY # 07/23/2023 N/A 50721-CMYS SKIN LESIONS, OVER 4 09/24/2023 N/A W8637-CAPHIJKF DYSTROPHIC NAILS ANY # 09/24/2023 N/A 24995-UPBW SKIN LESIONS, OVER 4 12/10/2023 N/A O9381-RPJLDREM DYSTROPHIC NAILS ANY # 12/10/2023 N/A 33546-EORT SKIN LESIONS, OVER 4 03/17/2024 N/A W1132-EHWQYFWY DYSTROPHIC NAILS ANY # 03/17/2024 N/A 75715-FETT SKIN LESIONS, OVER 4 06/20/2024 N/A X7191-MMZGLGNH DYSTROPHIC NAILS ANY # 06/20/2024 N/A Encounters Encounter Location Date Provider Diagnosis [address] [address] 07/23/2023 Marie Black Type 2 diabetes mellitus with diabetic polyneuropathy E11.42 and Xerosis of skin L85.[address] [address] 09/24/2023 Marie Black Type 2 diabetes mellitus with diabetic polyneuropathy E11.[address] [address] 12/10/2023 Marie Black Type 2 diabetes mellitus with diabetic polyneuropathy E11.[address] [address] 03/17/2024 Marie Black Type 2 diabetes mellitus with diabetic polyneuropathy E11.42 [facility] [place] [address] [place] [address] 06/20/2024 Marie Norton Type 2 diabetes mellitus with diabetic polyneuropathy E11.42 [facility] [address] [place] [address] 02/08/2024 Marie Norton Assessments Encounter Date Diagnosis (ICD Code) Assessment Notes Treatment Notes Treatment Clinical Notes Section Notes 07/23/2023 Type 2 diabetes mellitus with diabetic polyneuropathy (ICD-10 - E11.42) 09/24/2023 Type 2 diabetes mellitus with diabetic polyneuropathy (ICD-10 - E11.42) 12/10/2023 Type 2 diabetes mellitus with diabetic polyneuropathy (ICD-10 - E11.42) 03/17/2024 Type 2 diabetes mellitus with diabetic polyneuropathy (ICD-10 - E11.42) 06/20/2024 Type 2 diabetes mellitus with diabetic polyneuropathy (ICD-10 - E11.42) 07/23/2023 Xerosis of skin (ICD-10 - L85.3) Plan Of Treatment Pending Test Test Name Order Date 02111- Debride <25 sq cm 10/30/2016 77197-MSXD SKIN LESIONS, OVER 4 08/27/19 18 76946-LBAJ SKIN LESIONS, OVER 4 11/27/19 18 22132-CUXG SKIN LESIONS, OVER 4 02/26/20 18 49507-JLNA SKIN LESIONS, OVER 4 05/27/20 18 43496-RMMV SKIN LESIONS, OVER 4 08/26/19 19 72489-KBAO SKIN LESIONS, OVER 4 11/26/19 19 45169-HLYU SKIN LESIONS, OVER 4 02/25/20 19 81052-OTOD SKIN LESIONS, OVER 4 06/02/20 19 90300-XDER SKIN LESIONS, OVER 4 08/03/19 20 72750-XWVA SKIN LESIONS, OVER 4 09/15/19 20 59333-RJVB SKIN LESIONS, OVER 4 12/08/19 20 17663-ESFJ SKIN LESIONS, OVER 4 01/26/20 20 64391-CDRX SKIN LESIONS, OVER 4 03/15/20 20 54633-SWRP SKIN LESIONS, OVER 4 04/26/20 20 19899-FSKJ SKIN LESIONS, OVER 4 06/14/20 20 62458-IKNV SKIN LESIONS, OVER 4 07/19/19 51692-JKYP SKIN LESIONS, OVER 4 09/06/19 30724-OCUN SKIN LESIONS, OVER 4 10/19/19 81076-RIXQ SKIN LESIONS, OVER 4 11/27/19 46368-ZEFO SKIN LESIONS, OVER 4 02/22/20 15892-MBKA SKIN LESIONS, OVER 4 05/20/20 65748-ZYFP SKIN LESIONS, OVER 4 08/05/19 28141-DKME SKIN LESIONS, OVER 4 09/24/19 16027-WFND SKIN LESIONS, OVER 4 11/26/19 36009-ZIGU SKIN LESIONS, OVER 4 02/11/20 02662-LDWO SKIN LESIONS, OVER 4 05/08/20 14389-XERY SKIN LESIONS, OVER 4 07/31/19 29416-OQOR SKIN LESIONS, OVER 4 10/10/19 27080-AVSV SKIN LESIONS, OVER 4 12/19/19 28283-NQPO SKIN LESIONS, OVER 4 02/20/20 96519-KSPW SKIN LESIONS, OVER 4 04/30/20 57487-PJAZ SKIN LESIONS, OVER 4 07/23/19 05494-PKDM SKIN LESIONS, OVER 4 09/24/19 72301-ZSDL SKIN LESIONS, OVER 4 12/10/19 38107-VCQM SKIN LESIONS, OVER 4 03/17/20 21538-EIHU SKIN LESIONS, OVER 4 06/20/20 03807-PNBL SKIN LESIONS, 2 TO 4 10/31/19 31396-PYZL SKIN LESIONS, 2 TO 4 02/27/20 84701-IGCR SKIN LESIONS, 2 TO 4 05/28/20 17 32972-EPZM SKIN LESION 07/31/2016 74970-DXXQ NAIL(S) 07/31/2016 43165-TLGI NAIL(S) 10/30/2016 57295-TNQF NAIL(S) 02/26/2017 62287-MRPX NAIL(S) 05/28/2017 17303-PZTO NAIL(S) 08/27/2017 76744-SFUR NAIL(S) 08/26/2018 12924-ZVCG NAIL(S) 05/27/2018 30403-AXIC NAIL(S) 02/25/2018 10147-XRPZ NAIL(S) 11/26/2017 80567-CBZZ NAIL(S) 03/15/2020 06649-PWIR NAIL(S) 01/26/2020 36764-LFRP NAIL(S) 12/08/2019 32100-ZRJS NAIL(S) 09/15/2019 90413-NSIG NAIL(S) 08/03/2019 04372-YZKR NAIL(S) 06/02/2019 43004-GJXJ NAIL(S) 02/24/2019 89901-EIFQ NAIL(S) 11/25/2018 03856-AZKE NAIL(S) 07/31/2022 93153-JFCM NAIL(S) 05/08/2022 69034-BQTG NAIL(S) 02/10/2022 09567-LVEG NAIL(S) 11/25/2021 56713-VDCH NAIL(S) 09/23/2021 93631-XKKN NAIL(S) 08/05/2021 50594-PMXV NAIL(S) 05/20/2021 64333-HOPX NAIL(S) 02/21/2021 48370-DWWL NAIL(S) 11/26/2020 04483-KNRD NAIL(S) 10/18/2020 18924-TXGK NAIL(S) 09/06/2020 17959-UHDO NAIL(S) 07/19/2020 41761-LDHP NAIL(S) 06/14/2020 29733-SSTP NAIL(S) 04/26/2020 D1214-ZVSMKUWU DYSTROPHIC NAILS ANY # C2783-NLWJFHWJ DYSTROPHIC NAILS ANY # O2509-JEKXADEY DYSTROPHIC NAILS ANY # C0701-QGKDIPNB DYSTROPHIC NAILS ANY # F1352-BOHOYDLH DYSTROPHIC NAILS ANY # G4119-INGOVBTZ DYSTROPHIC NAILS ANY # J4100-OXLFYMPN DYSTROPHIC NAILS ANY # H8397-VYVRGDJP DYSTROPHIC NAILS ANY # A5315-ZDLCNLER DYSTROPHIC NAILS ANY # Next Appt Details Provider Name:Marie A Errol , 2024 09:30:00 AM, [address] [facility], [place], [address], Insurance Providers Payer Name Payer Address Payer Phone Subscriber Number Group Number Insured Name Patient Relationship to Insured Coverage Start Date Coverage End Date Medicare National [employer] [address] [place] [address] [id number] Yayo Simpson Self - patient is the insured A[employer] Secondary to Medicare [address] [place] [address] [id number] Yayo Simpson Self - patient is the insured Medical (General) History Medical History History ICD Code Back,Hip,and Knee pain Broken bones type II diabetes Diverticulosis Hypertension Sciatica Measles Mumps Chicken pox osteoarthritis- right hip Surgical History Surgery Date(Month/Year) pilonidal cyst excision 1979 tonsillectomy 1969 cataract surgery 11/03 Right hip replaced 02/10/24 Tooth extraction 01/2024 Hospitalization History Reason Date(Month/Year) Colonascopy 09/13
--- OUTSIDE RECORDS SUMMARY | 2024-06-28 14:46 | XMS_ITS ---
Author Organization [facility] Address [address] [place] [address] Care Team Providers Care Bevel Mill Operator Name Role Phone Kevin Frey MD Primary Care Provider Unavaila ble Black, Marie Unavailable [phone] Allergies No Known Allergies REASON FOR VISIT At Risk Footcare Medications Medication SIG (Take, Route, Frequency, Duration) Notes Start Date End Date Status NovoLOG 100 UNIT/ML 15 to 25 unit Subcutaneous daily Not-Taking Lovastatin Not-Takin g Tresiba FlexTouch No t-Taking Fiasp 100 UNIT/ML Subcutaneous Not-Taking Sildenafil Citrate N ot-Taking Ammonium Lactate 12 % 1 application Exte rnally Twice a day for 30 days Active Extra Depth Orthopedic Shoes (1 Pair) with Customized Heat Molded Multidensity Innersoles (3 Pair) as directed Dx: NIDDM/Polyneuropathy (E11.42), Hammertoe Foot Deformity (M20.41,M20.42), Preulcerative Skin Lesion(s) (L85.1 09/23/2021 Not-Taking metFORMIN HCl 1000 MG 1 tablet with meal s Orally Twice a day Active Basaglar KwikPen 100 UNIT/ML as directed Subcutaneous Not -Taking HumaLOG 100 UNIT/ML as directed Subcutaneous Not-Taking Enalapril Maleate Ac tive Atorvastatin Calcium Active FreeStyle System Act sendy Lyumjev 100 UNIT/ML INJECT 5 TO 35 UNITS UNDER THE SKIN BEFORE MEALS AND SNACKS 5 TIMES DAILY DIRECTED Injection for 27 Active Tresiba Active Social History Tobacco Use: Social History Observation [...] Are you an other tobacco user? No Vital Signs Height 5ft7in in 03/17/2024 Weight 210 lbs 03/17/2024 BMI 32.89 kg/m2 03/17/2024 Procedures Procedure Date Ordered Date Performed Result Body Sit e 95851-VWTM SKIN LESIONS, OVER 03/17/2024 N/A M6931-BZKKNVKF DYSTROPHIC NAILS ANY # 03/17/2024 N/A Encounters Encounter Location Date Provider Diagnosis [facility] [address] [address] 03/17/2024 Marie Norton Type 2 diabetes mellitus with diabetic polyneuropathy E11.42 Assessments Encounter Date Diagnosis (ICD Code) Assessment Notes Treatment Notes Treatment Clinical Notes Section Notes 03/17/2024 Type 2 diabetes mellitus with diabetic polyneuropathy (ICD-10 - E11.42) Plan Of Treatment Pending Test Test Name Order Date 49333-FLUH SKIN LESIONS, OVER 03/17/20 24 E1031-SKPQTKBB DYSTROPHIC NAILS ANY # Next Appt Details Follow Up: prn, Reason: Provider Name:Marie Norton , 2024 09:30:00 AM, [address] [place] [address], [address], Procedure Notes * Category Sub-Category Detail Notes Keratoma Treatment Parring or Cutting o f Benign Hyperkeratotic Lesion(s) 11343 ( >4 Lesions) - The Benign hyperkeratotic lesions, as described above were pared, and/or cut utilizing a sterile #15 blade, tissue nippers, and/or dremel Nail Reduction Nail Reduction Trimming of dyst rophic nails performed to reduce/remove overall nail length and girth, by manual and electrical means with use of a nail nipper and/or dremel, to more viable healthy nail plate or bed tissue 6-10 (G0127) Progress Notes * Yayo SIMPSONDOB:1955 ([age] yo M)Acc No.[id number]:03/17/2024 Progress Note Patient:Yayo Godoy Provider:?Marie Norton DPM :1955???Age:68 Y???Sex:Male Artie e:03/17/2024 Address:[address] [place] [address] [place] Pcp:Kevin Frey MD Subjective: * Chief Complaints: * ???At Risk Footcare * HPI: ???At Risk footcare:?Pt States Last PCP Visit:?Date?10/08/2023 * Medical History:? * Surgical History:?pilonidal cyst excision 1980tonsillectomy 1970cataract surgery 11/03Right hip replaced 02/10/24Tooth extraction 01/2024 * Hospitalization/Major Diagno stic Procedure:?Colonascopy 09/13 * Family History:?Mother: gabi kelley?Father: .?Siblings: , Cancer, diagnosed with Other malignant neoplasm of unspecified site.? * Social History:?Tobacco Use:?Tobacco Use/Smoking?Are you a:?nonsmoker ?Additional Findings: Tobacco Non-User?Current non-smoker ?Tobacco use other than smoking?Are you an other tobacco user??No ???Drugs/Alcohol:?Drugs?Have you used drugs other than those for medical reasons in the past 12 months??Yes ?Marijuana??Yes ?Alcohol Screen?Did you have a drink containing alcohol in the past year??Yes ?How often did you have a drink containing alcohol in the past year??4 or more times a week (4 points) ?How often did you have 6 or more drinks on one occasion in the past year??Daily or almost daily (4 points) ?Points?8 ?Interpretation?Positive ???Miscellaneous:?Caffeine: yes, 3-5 cups per day. ?no Children. ?no Exercise. ?Marital status: . 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 * Medications:?TakingTresiba F reeStyle System Kit Enalapril Maleate Atorvastatin Calcium Lyumjev 100 UNIT/ML Solution INJECT 5 TO 35 UNITS UNDER THE SKIN BEFORE MEALS AND SNACKS 5 TIMES DAILY DIRECTED Injection metFORMIN HCl 1000 MG Tablet 1 tablet with meals Orally Twice a dayAmmonium Lactate 12 % Cream 1 application Externally Twice a dayTaking Tresiba Taking FreeStyle System Kit Taking Enalapril Maleate Taking Atorvastatin Calcium Taking Lyumjev 100 UNIT/ML Solution INJECT 5 TO 35 UNITS UNDER THE SKIN BEFORE MEALS AND SNACKS 5 TIMES DAILY DIRECTED Injection Taking metFORMIN HCl 1000 MG Tablet 1 tablet with meals Orally Twice a dayTaking Ammonium Lactate 12 % Cream 1 application Externally Twice a dayNot-Taking/PRNExtra Depth Orthopedic Shoes (1 Pair) with Customized Heat Molded Multidensity Innersoles (3 Pair) as directed Dx: NIDDM/Polyneuropathy (E11.42), Hammertoe Foot Deformity (M20.41,M20.42), Preulcerative Skin Lesion(s) (L85.1Basaglar KwikPen 100 UNIT/ML Solution Pen- injector as directed Subcutaneous HumaLOG 100 UNIT/ML Solution as directed Subcutaneous Sildenafil Citrate Tresiba FlexTouch Fiasp 100 UNIT/ML Solution Subcutaneous NovoLOG 100 UNIT/ML Solution 15 to 25 unit Subcutaneous dailyLovastatin Medication List reviewed and reconciled with the patientNot-Taking/PRN Extra Depth Orthopedic Shoes (1 Pair) with Customized Heat Molded Multidensity Innersoles (3 Pair) as directed Dx: NIDDM/Polyneuropathy (E11.42), Hammertoe Foot Deformity (M20.41,M20.42), Preulcerative Skin Lesion(s) (L85.1Not-Taking/PRN Basaglar KwikPen 100 UNIT/ML Solution Pen-injector as directed Subcutaneous Not-Taking/PRN HumaLOG 100 UNIT/ML Solution as directed Subcutaneous Not-Taking/PRN Sildenafil Citrate Not- Taking/PRN Tresiba FlexTouch Not-Taking/PRN Fiasp 100 UNIT/ML Solution Subcutaneous Not-Taking/PRN NovoLOG 100 UNIT/ML Solution 15 to 25 unit Subcutaneous dailyNot-Taking/PRN Lovastatin Medication List reviewed and reconciled with the patient * Allergies:?N.K.D.A.yes[Aller gies Verified] Objective: * Vitals:?Ht: 5ft7in, Wt:210, BMI:32.89, Shoe size: 9W, BS: 121, Ht-cm: 170.18 cm, Wt-k.25 kg. * ???Past Orders: ???Lab:HEMOGLOBIN A1C (GLYCO HEMOGLOBIN) (Order Date - 12/12/2023) (Collection Date - 12/12/2023) ? Value Reference Range ?HEMOGLOBIN A1C % (HH) 8.1 * Examination: ???Ophthalmology Referral: ?DIABETES EYE EXAM?Neurological: ?SENSORY:?Neurological exam demonstrates, reduced light touch sensation, reduced sharp/dull pin prick discrimination , reduced vibration sensation, 5.07 monofilament test performed at plantar aspects of 5 varied sites per foot shows sensation, reduced , at Forefoot, B/L, Pt relates,?anesthesia.?Dermatologic: ?SKIN FINDINGS:?Skin exam reveals keratotic lesion(s) located at, SUB MTH (s), 2, Left TA, T5? sub 1 b/l Heel(s), B/L.?Nails: ?NAILS are:?Elongated, overgrown, dystrophic, 2-5 B/L.? Assessment: * Assessment: 1.?Type 2 diabetes mellitus with diabetic polyneuropathy - E11.42 (Primary)? Plan: * Treatment: * Procedures:?Keratoma Treatment:?Parring or Cutting of Benign Hyperkeratotic Lesion(s)?72695 ( >4 Lesions) - The Benign hyperkeratotic lesions, as described above were pared, and/or cut utilizing a sterile #15 blade, tissue nippers, and/or dremel.?Nail Reduction:?Nail Reduction?Trimming of dystrophic nails performed to reduce/remove overall nail length and girth, by manual and electrical means with use of a nail nipper and/or dremel, to more viable healthy nail plate or bed tissue 6-10 (G0127).? * Procedure Codes:?49368 TRIM SKIN LESIONS, OVER 4, Modifiers: XS G0127 TRIMMING DYSTROPHIC NAILS ANY #, Modifiers: XS * Follow Up:?prn * Images: * Sign off status: Completed true * Provider:?Marie Norton DPM Date:?2023 Generated for Raquel floyd/Dawood/eTransmitting on:?06/28/2024 02:45 PM EST History and Physical Notes * HPI (History of Present Illness) Category Sub-Category Detail Notes Category Not es At Risk footcare Pt States Last PCP Visit: Date: Examination Category Sub-Category Detail Notes Category Not es Neurological SENSORY: Neurological exa m demonstrates, reduced light touch sensation, reduced sharp/dull pin prick discrimination , reduced vibration sensation, 5.07 monofilament test performed at plantar aspects of 5 varied sites per foot shows sensation, reduced , at Forefoot, B/L, Pt relates, anesthesia Dermatologic SKIN FINDINGS: Skin exam reveal s keratotic lesion(s) located at, SUB MTH (s), 2, Left TA, T5 sub 1 b/l Heel(s), B/L ULCER: VERRUCA: Ophthalmology Referral DIABETES EYE EXAM Diabetic Retinopa thy Screening:: Yes Findings of Diabetic Eye Exam:: no retin opathy Nails NAILS are: Elongated, overgrown, dystro phic, 2-5 B/L
--- OUTSIDE RECORDS SUMMARY | 2024-06-28 14:46 | XMS_ITS ---
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 Name Role Phone Kevin Frey MD Primary Care Provider Unavaila Marie Berry [phone] REASON FOR VISIT soon sooner Encounters Encounter Location Date Provider Diagnosis [address] [address] 04/21/2024 Marie Norton Plan Of Treatment Next Appt Details Provider Name:Marie Varela Errol , 2024 09:30:00 AM, [address] [place] [address], [phone], Progress Notes * TATIANA, YayoDOB:1955 (7 7 yo M)Acc No.[id number]:04/21/2024 Progress Note Patient:?Yayo SIMPSON Provider:?Marie Norton DPM :1955???Age:68 Y???Sex:Male Artie e:04/21/2024 Address:[address] [place], [place] [address] Pcp:Kevin Frey MD Subjective: * Chief Complaints: * ???1. Soon sooner. * Medical History:? Objective: * Vitals:? Assessment: Plan: * Treatment: * Images: * The named appointment provid er may or may not be the originator of this progress note, and it is not deemed complete until electronically signed by the appointment provider. Sign off status: Pending * Provider:Mariela Norton DPM Date:?2023 Generated for Raquel floyd/Dawood/Letty on:?06/28/2024 02:45 PM EST
--- OUTSIDE RECORDS SUMMARY | 2024-06-28 14:46 | XMS_ITS ---
Author Organization [facility] Address [address] [place] [address] Care Team Providers Care Stave Grader Name Role Phone Kevin Frey MD Primary Care Provider Unavaila ble Black, Marie Unavailable [phone] Allergies No Known Allergies REASON FOR VISIT At Risk Footcare Medications Medication SIG (Take, Route, Frequency, Duration) Notes Start Date End Date Status NovoLOG 100 UNIT/ML 15 to 25 unit Subcutaneous daily Not-Taking Lovastatin Not-Takin g Sildenafil Citrate N ot-Taking Tresiba FlexTouch No t-Taking Fiasp 100 UNIT/ML Subcutaneous Not-Taking metFORMIN HCl 1000 MG 1 tablet with meal s Orally Twice a day Active Ammonium Lactate 12 % 1 application Exte rnally Twice a day for 30 days Active HumaLOG 100 UNIT/ML as directed Subcutaneous Not-Taking Extra Depth Orthopedic Shoes (1 Pair) with Customized Heat Molded Multidensity Innersoles (3 Pair) as directed Dx: NIDDM/Polyneuropathy (E11.42), Hammertoe Foot Deformity (M20.41,M20.42), Preulcerative Skin Lesion(s) (L85.1 09/23/2021 Not-Taking Basaglar KwikPen 100 UNIT/ML as directed Subcutaneous Not -Taking Atorvastatin Calcium Active Lyumjev 100 UNIT/ML INJECT 5 TO 35 UNITS UNDER THE SKIN BEFORE MEALS AND SNACKS 5 TIMES DAILY DIRECTED Injection for 27 Active Enalapril Maleate Ac tive Tresiba Active FreeStyle System Act sendy Social History Tobacco Use: Social History Observation [...] other tobacco user? No Vital Signs Height 5ft 7in in 06/20/2024 Weight 210 lbs 06/20/2024 BMI 32.89 kg/m2 06/20/2024 Procedures Procedure Date Ordered Date Performed Result Body Sit e 61162-JVAH SKIN LESIONS, OVER 4 06/20/2024 N/A [id number] DYSTROPHIC NAILS ANY # 06/20/2024 N/A Encounters Encounter Location Date Provider Diagnosis [facility] [address] [address] 06/20/2024 Marie Norton Type 2 diabetes mellitus with diabetic polyneuropathy E11.42 Assessments Encounter Date Diagnosis (ICD Code) Assessment Notes Treatment Notes Treatment Clinical Notes Section Notes 06/20/2024 Type 2 diabetes mellitus with diabetic polyneuropathy (ICD-10 - E11.42) Plan Of Treatment Pending Test Test Name Order Date 17689-ZXLU SKIN LESIONS, OVER 4 06/20/20 24 [id number] DYSTROPHIC NAILS ANY # Next Appt Details Follow Up: prn, Reason: Provider Name:Marie Norton , 2024 09:30:00 AM, [address] [place] [address], [id number], Procedure Notes * Category Sub-Category Detail Notes Keratoma Treatment Parring or Cutting o f Benign Hyperkeratotic Lesion(s) (-57) More than 4 Lesions - Due to the at risk nature of the patients medical condition as documented in the exam findings, performance of this keratoderma treatment is medically necessary as its management by an unskilled/untrained nonprofessional would put this patients foot and overall health at risk. Therefore, the benign hyperkeratotic lesions, (7) in total, locations as stated and described in the exam, were pared, and/or cut utilizing a sterile 15 blade, tissue nippers, and/or power dremel instrumentation - 18840 Nail Reduction Nail Reduction (-27) Trimming o f all dystrophic nails - Due to the at risk nature of the patients medical condition as documented in the exam findings, performance of this nail treatment is medically necessary as its management by an unskilled/untrained nonprofessional would put this patients foot and overall health at risk. Therefore, the dystrophic nails, in locations as stated and described in the exam, were debrided to reduce/remove overall nail length and girth, by manual and electrical means with use of a nail nipper and/or dremel, to more viable healthy nail plate or bed tissue - G0127 Progress Notes * Yayo SIMPSONDOB:1955 ([age] yo M)Acc No.[id number]:06/20/2024 Progress Note Patient:?Yayo SIMPSON Provider:?Marie Norton DPM :1955???Age:68 Y???Sex:Male Artie e:06/20/2024 Address:[address] [place], [place] [id number] Pcp:Kevin Frey MD Subjective: * Chief Complaints: * ???At Risk Footcare * HPI: ???At Risk footcare:?Pt States Last PCP Visit:?Date?06/14/2024 * ROS:?General/Constitutional:?Nausea?denies.?Vomiting?denies.?Hunger Thirst?denies.?Loss appetite?denies.?Chills?denies.?Fatigue?denies.?Fever?denies.?Night Sweats?denies.?Unexplained weight loss?denies.?Ophthalmologic:?Blurred vision?denies.?Red eye?denies.?HEENTM:?Dentures?denies.?Dizziness?denies.?Glasses/contacts?admits.?Retinopathy?den ies.?Blurred/double vision?denies.?TMJ?denies.?Discharge/drainage?denies.?Implants?denies.?Hard of hearing denies.?Difficulty chewing/swallowing/speaking?denies.?Nose bleeds?denies.?Sore mouth?denies.?Swollen glands?denies.?Respiratory:?On O xygen?denies.?Pneumonia/pleurisy?denies.?Bronchitis?denies.?Emphysema?denies.?Co ughing?denies.?Cough blood?denies.?Shortness of breath?denies.?Wheezing?denies.?Cardiovascular:?Pacemaker?denies.?MVP?denies.?WPW?denies.?CHF?denies.?Heart attack?denies.?Septal defect?denies.?Rapid beat?denies.?Chest pain ?denies.?Atrial Fib.?denies.?Murmur/Palpitations?denies.?Gastrointestinal:?Hemorrhoids?denies.?Stomach/Abdominal pain?denies.?Dark blood stool?denies.?Irritable bowel ?denies.?Constipation?denies.?Diarrhea?denies.?Vomiting?denies.?Hematology:?Swelling?denies.?Bruising?denies.?Bleeding problem?denies.?Genitourinary:?Blood urine?denies.?Frequent/Painfu/urination/bladder control?denies.?Kidney stones?denies.?Infection (UTI)?denies.?Nephropathy?denies.?Musculoskeletal:?Hammertoes?admits.?Bunions?denies.?Scoliosis/kyphosis?denies.?Muscle cramps / walking?denies.?Generalized aches and pains?denies.?Weakness?denies.?Integ.:?Brown?denies.?Scars?denies.?Corns/calluses?, admits.?Ingrown nails?denies.?Painful nails?denies.?Rashes?denies.?Neurologic:?Difficulty sleeping?denies.?Bipolar?denies.?Brain disorder?denies.?Balance t rouble?denies.?Confusion?denies.?Fainting/blackouts?denies.?Headache?denies.?Paolo mors?denies.? * Medical History:? * Surgical History:?pilonidal cyst [...] ?Interpretation?Positive ???Miscellaneous:?Caffeine: yes, 3-5 cups per day. ?Children: no. ?Exercise: no. ?Marital status: . ?Occupation: [employer]. * Medications:?TakingTresiba F reeStyle System Kit Enalapril Maleate Atorvastatin Calcium Lyumjev 100 UNIT/ML Solution INJECT 5 TO 35 UNITS UNDER THE SKIN BEFORE MEALS AND SNACKS 5 TIMES DAILY DIRECTED Injection metFORMIN HCl 1000 MG Tablet 1 tablet with meals Orally Twice a day Ammonium Lactate 12 % Cream 1 application Externally Twice a day Taking Tresiba Taking FreeStyle System Kit Taking Enalapril Maleate Taking Atorvastatin Calcium Taking Lyumjev 100 UNIT/ML Solution INJECT 5 TO 35 UNITS UNDER THE SKIN BEFORE MEALS AND SNACKS 5 TIMES DAILY DIRECTED Injection Taking metFORMIN HCl 1000 MG Tablet 1 tablet with meals Orally Twice a day Taking Ammonium Lactate 12 % Cream 1 application Externally Twice a day Not-Taking/PRNExtra Depth Orthopedic Shoes (1 Pair) with Customized Heat Molded Multidensity Innersoles (3 Pair) as directed Dx: NIDDM/Polyneuropathy (E11.42), Hammertoe Foot Deformity (M20.41,M20.42), Preulcerative Skin Lesion(s) (L85.1 Basaglar KwikPen 100 UNIT/ML Solution Pen-injector as directed Subcutaneous HumaLOG 100 UNIT/ML Solution as directed Subcutaneous Sildenafil Citrate Tresiba FlexTouch Fiasp 100 UNIT/ML Solution Subcutaneous NovoLOG 100 UNIT/ML Solution 15 to 25 unit Subcutaneous daily Lovastatin Medication List reviewed and reconciled with the patientNot-Taking/PRN Extra Depth Orthopedic Shoes (1 Pair) with Customized Heat Molded Multidensity Innersoles (3 Pair) as directed Dx: NIDDM/Polyneuropathy (E11.42), Hammertoe Foot Deformity (M20.41,M20.42), Preulcerative Skin Lesion(s) (L85.1 Not-Taking/PRN Basaglar KwikPen 100 UNIT/ML Solution Pen-injector as directed Subcutaneous Not-Taking/PRN HumaLOG 100 UNIT/ML Solution as directed Subcutaneous Not-Taking/PRN Sildenafil Citrate Not-Taking/PRN Tresiba FlexTouch Not-Taking/PRN Fiasp 100 UNIT/ML Solution Subcutaneous Not-Taking/PRN NovoLOG 100 UNIT/ML Solution 15 to 25 unit Subcutaneous daily Not-Taking/PRN Lovastatin Medication List reviewed and reconciled with the patient * Allergies:?N.K.D.A.yes[Aller gies Verified] Objective: * Vitals:?Ht: 5ft 7in, Wt:210, BMI:32.89, Shoe size: 9W, Ht-cm: 170.18 cm, Wt-k.25 kg. * ???Past Orders: Lab:HEMOGLOBIN A1C (GLYCOHEM OGLOBIN) * Collection Date 06/20/2024 12/12/2023 Collection Time 08:35 AM 09:52 AM Order Date 06/20/2024 12/12/2023 HEMOGLOBIN A1C % (HH) 7.3 8.1 * Examination: ???Ophthalmology Referral: ?DIABETES EYE [...] 2, Left TA, T5 sub 1 b/l , Plantar Heel(s), B/L.?Nails: ?NAILS are:?Elongated, overgrown, dystrophic, 2-5 B/L.?Vascular: ?DP PULSES(B):?2/4, B/L.?PT PULSES(B):?2/4, B/L.?CAPILLARY FILL TIME:?immediate, all digits, B/L.?TROPHIC CONDITION-TEXTURE/ELASTICITY/TURGOR/HAIR GROWTH(B):?normal, B/L.?TEMPERTURE GRADIENT(C):?normal, warm to cool, proximal to distal, B/L, B/L.? Assessment: * Assessment: 1.?Type 2 diabetes mellitus with diabetic polyneuropathy - E11.42 (Primary)??? Plan: * Treatment: * Procedures:?Keratoma Treatment:?Parring or Cutting of Benign Hyperkeratotic Lesion(s)?(-57) More than 4 Lesions - Due to the at risk nature of the patients medical condition as documented in the exam findings, performance of this keratoderma treatment is medically necessary as its management by an unskilled/untrained nonprofessional would put this patients foot and overall health at risk. Therefore, the benign hyperkeratotic lesions, (7) in total, locations as stated and described in the exam, were pared, and/or cut utilizing a sterile 15 blade, tissue nippers, and/or power dremel instrumentation - 13365.?Nail Reduction:?Nail Reduction?(-27) Trimming of all dystrophic nails - Due to the at risk nature of the patients medical condition as documented in the exam findings, performance of this nail treatment is medically necessary as its management by an unskilled/untrained nonprofessional would put this patients foot and overall health at risk. Therefore, the dystrophic nails, in locations as stated and described in the exam, were debrided to reduce/remove overall nail length and girth, by manual and electrical means with use of a nail nipper and/or dremel, to more viable healthy nail plate or bed tissue - G0127.? * Procedure Codes:?97819 TRIM SKIN LESIONS, OVER 4, Modifiers: XS G0127 TRIMMING DYSTROPHIC NAILS ANY #, Modifiers: XS * Follow Up:?prn * Images: * Sign off status: Completed true * Provider:?Marie Norton DPM Date:?2023 Generated for Raquel floyd/Dawood/Letty on:?06/28/2024 02:45 PM EST History and Physical [...] 2, Left TA, T5 sub 1 b/l , Plantar Heel(s), B/L ULCER: VERRUCA: Ophthalmology Referral DIABETES EYE EXAM Procedure Perform ed:: Yes ?Date of Exam Performed: 07/13/2023 Findings of Diabetic Eye Exam:: no retin opathy Vascular DP PULSES(B): 2/4, B/L PT PULSES(B): 2/4, B/L CAPILLARY FILL TIME: immediate, all digi ts, B/L TEMPERTURE GRADIENT(C): normal, warm to cool, proximal to distal, B/L, B/L TROPHIC CONDITION-TEXTURE/ELASTICITY/TURGOR/HAIR GROWTH(B): normal, B/L Nails NAILS are: Elongated, overgrown, dystro phic, 2-5 B/L
[2024-06-28 14:47] VITALS: BP 130/64; PULSE 74; BMI 32.5
== END 2024-06-28 15:15 | disposition home or self-care (01) ==
PROVIDERS: PCP Internal Medicine; Visit Provider Internal Medicine
DX: R94.39 Abnormal result of other cardiovascular function study (principal); I25.10 Atherosclerotic heart disease of native coronary artery without angina pectoris; E11.9 Type 2 diabetes mellitus without complications; I10 Essential (primary) hypertension; E78.5 Hyperlipidemia, unspecified
CPT/HCPCS: 99214

== ENCOUNTER → 2024-06-28 14:43 | Outpatient (BNVA) | payer MEDICARE, SELFPAY | PROVIDERS: PCP Internal Medicine; Visit Provider Internal Medicine | DX: R94.39 Abnormal result of other cardiovascular function study (principal); I25.10 Atherosclerotic heart disease of native coronary artery without angina pectoris; I10 Essential (primary) hypertension; E11.9 Type 2 diabetes mellitus without complications; E78.5 Hyperlipidemia, unspecified | CPT/HCPCS: 99212 ==

== ENCOUNTER 2024-07-18 11:06 | Outpatient (AMB) | payer MEDICARE, SELFPAY ==
--- NOTE | 2024-07-18 11:12 | A.OFFPC_ITS ---
Vital Signs 07/18/24 11:14 Height 5 ft 8 in Weight 212 lb 2 oz BMI 32.2 BP 132/60 Blood Pressure Location Rt brachial Position Sitting Pulse 69 Pulse Source Pulse Oximeter Pulse Oximetry (%) 98 Oxygen Delivery Method Room Air Intake Visit Reasons: 3 Month F/U Intake Note: Patient is here to follow up on DM, HTN. Torts Law Professor Required: No Panel Machine Tender: Not Required per policy Accompanied by: Self / Same As Patient Allergies No Known Allergies Allergy (Verified 07/18/24 11:14) Tobacco use date assessed: 07/18/24 Fall risk assessment: No Falls in past year Last assessed Fall Risk: 07/18/24 Dental Screening Dental Screen Date: 07/18/24 Did you have a dental visit in the last 12 months?: Yes Did you have a dental problem in the last 6 months where you did not have access to dental care?: No Was dental information given to patient?: Patient has dentist HPI 3 Month F/U HPI Details DM; not exercising enough and some dietary indiscretion; due for labs [facility] Medical History (Updated 06/28/24 @ 14:52 by Benjamin Last MD) ELLYN (obstructive sleep apnea) Obesity Diabetes mellitus Obesity (BMI 30-39.9) Hypertension Dyslipidemia MCFP (current) use of insulin Diabetes type 2, uncontrolled Surgical History (Updated 07/18/24 @ 11:21 by SADI Grajeda) History of YAG laser iridotomy of left eye History of right hip replacement Hx of colonoscopy Hx of colonoscopy History of uvulectomy History of removal of cyst History of tonsillectomy Family History Father Prostate cancer Mother Hypertension Hypercholesterolemia Maternal Grandmother Alzheimers disease Maternal Grandfather Heart disease Social History Housing: House Alcohol intake: current Alcohol intake frequency: 0-2 drinks per day Alcohol type: wine Patient Tobacco Use Status: Never used Tobacco e-Cigarette/Vaping Use: Never Used Second Hand Smoke Exposure: No service: No Current occupational status: employed 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 1. Little interest or pleasure in doing things: not at all 2. Feeling down, depressed, or hopeless: not at all 3. Trouble falling or staying asleep, or sleeping too much: not at all 4. Feeling tired or having little energy: not at all 5. Poor appetite or overeating: not at all 6. Feeling bad about yourself - or that you are a failure or have let yourself or your family down: not at all 7. Trouble concentrating on things, such as reading the newspaper or watching television: not at all 8. Moving or speaking so slowly that other people could have noticed. Or the op posite - being so fidgety or restless that you have been moving around a lot more than usual: not at all 9. Thoughts that you would be better off or of hurting yourself in some way: not at all Total score: 0 Depression Screening Interpretation: Negative Depression Screening Done: Yes Source: Developed by Drs. Tommie Phillips, Edilia Ortiz, Domingo Marquez and colleagues, with an educational vasiliy from [employer]. Thrive Questionnaire Date Thrive assessed: 07/18/24 I am a: Patient What is your living situation today?: I have a steady place to live Within the past 12 months, did the food you bought not last and you didn't have the money to get more?: Never true Within the past 12 months, did you worry whether your food would run out before you got money to buy more?: Never true Do you have trouble paying for medicines?: No Do you have trouble getting transportation to medical appointments?: No Do you have trouble paying your heating and electricity bill?: No Do you have trouble taking care of your child, family member or friend?: No Do you have trouble with day-to-day activities such as bathing, preparing meals, shopping, managing finances, etc.?: No Are you currently unemployed and looking for a job?: No Are you interested in more education?: No Please select the resources that you would like help with: None Currently or been in a relationship where the following occur: No concerns reported THRIVE Score: 0 AUDIT C Alcohol Use Questionnaire (AUDIT-C) 1. How often do you have a drink containing alcohol?: 2-4 times a month 2. How many drinks containing alcohol do you have on a typical day when you are drinking?: 1 or 2 Total Score: 2 RHINA-7 AMB Questionnaire RHINA-7 Date RHINA - 7 assessed: 07/18/24 Feeling nervous, anxious, or on edge: 0 = Not at all Not being able to stop or control worryin = Not at all Worrying too much about different things: 0 = Not at all Trouble relaxin = Not at all Being so restless that it is hard to sit still: 0 = Not at all Becoming easily annoyed or irritable: 0 = Not at all Feeling afraid as if something awful might happen: 0 = Not at all Total RHINA-7 score (0-4 normal; 5-9 mild; 10-14 moderate; 15-21 severe): 0 Source: Developed by Drs. Tommie Phillips, Edilia Ortiz, Domingo Marquez and colleagues, with an educational vasiliy from [employer]. Review of Systems Const Denies chills, Denies headache(s) and Denies weight loss ENT Denies headache(s) Card Denies chest pain, Denies syncope, Denies irregular heart rhythm and Denies dyspnea Resp Denies chest congestion, Denies cough and Denies dyspnea GI Denies abdominal pain, Denies change in stool character, Denies nausea and Denies vomiting Musc Denies deformity and Denies joint swelling Neuro Denies syncope and Denies headache(s) Physical exam (Primary Care) Vital Signs: Last Vital Signs Pulse 69 07/18/24 11:14 BP 132/60 07/18/24 11:14 Pulse Ox 98 07/18/24 11:14 Oxygen Delivery Method Room Air 07/18/24 11:14 BMI result Body Mass Index 32.2 Tobacco/Smoking Status: Tobacco use Status Tobacco use date assessed 07/18/24 07/18/24 11:22 Patient Tobacco Use Status Never used Tobacco 07/18/24 11:13 e-Cigarette/Vaping Use Never Used 07/18/24 11:13 PHQ-9: PHQ-9 Score PHQ-9: Total score 0 07/18/24 11:22 Depression Screening Interpretation: Negative Thrive Assessment: Date of Thrive Assessment Date Thrive assessed 07/18/24 07/18/24 11:13 Currently or been in a relationship where the following occur: No concerns reported Const General: cooperative, comfortable, no acute distress and alert Neck Neck: Yes no lymphadenopathy Thyroid: Thyroid normal Resp Effort & Inspection: normal respiratory effort Auscultation: clear to auscultation bilaterally Percussion: percussion normal Cardio Jugular venous distension: no JVD Palpation: normal PMI Rate: regular rate Rhythm: regular rhythm Heart sounds: S1 normal heart sound present and S2 normal heart sound present GI Inspection: Yes normal to inspection Palpation (GI): No hepatosplenomegaly present Skin General skin exam: no rashes or lesions noted Extrem General: Yes no clubbing, cyanosis or edema Results AMB Hemoglobin A1c AMB Hemoglobin A1c 7.3 % Last Edit by SADI Grajeda on 07/18/24 11:25 Results Reviewed Results Reviewed: Laboratory Last Values Hgb A1c (Clinic) 7.3 % (4.0-6.0) H 07/18/24 11:13 Coding Level of Care Code Est Pt Level 3 (40571) Diagnoses Diabetes mellitus with coincident hypertension E11.9; I10 Assessment & Plan Assessment & Plan (1) Diabetes mellitus with coincident hypertension: Code(s): E11.9 - Type 2 diabetes mellitus without complications; I10 - Essential (primary) hypertension Category: Medical Plan: stable; do labs; has fluctuating blood glucose and uses a Dexcom 6 to better regulate his sugars; compliant Orders: Orders AMB Hemoglobin A1c Today E11.9 - Type 2 diabetes mellitus without complications, I10 - Essential (primary) hypertension Lipid Panel Today Z13.220 - Encounter for screening for lipoid disorders Comprehensive [place]. Panel Fast Today Z13.9 - Encounter for screening, unspecified Complete Blood Count Auto Diff Today Z13.0 - Encounter for screening for diseases of the blood and blood-forming organs and certain disorders involving the immune mechanism Thyroid Stimulating Hormone Today Z13.29 - Encounter for screening for other suspected endocrine disorder Microalbumin, Random (w Creat) Today E11.69 - Type 2 diabetes mellitus with other specified complication, E66.01 - Morbid (severe) obesity due to excess calories
[2024-07-18 11:14] VITALS: BP 132/60; PULSE 69; O2SAT 98; BMI 32.2
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
--- OUTSIDE RECORDS SUMMARY | 2024-07-18 12:43 | XMS_ITS ---
Author Organization [facility] Address [address] [place] [address] Care Team Providers Care Customer Retention Specialist Name Role Phone Kevin Frey MD Primary Care Provider Unavaila Marie Berry [phone] REASON FOR VISIT soon sooner Encounters Encounter Location Date Provider Diagnosis [address] [address] 04/21/2024 Marie Norton Plan Of Treatment Next Appt Details Provider Name:Marie Norton , 2024 09:30:00 AM, [address] [place] [address], [phone], Progress Notes * TATIANA YayoDOB:1955 ([age] yo M)Acc No.[id number]:04/21/2024 Progress Note Patient:?Yayo SIMPSON Provider:?Marie Norton DPM :1955???Age:68 Y???Sex:Male Artie e:04/21/2024 Address:[address] [place], [place] [id number] Pcp:Kevin Frey MD Subjective: * Chief Complaints: [...] Norton DPM Date:?2023 Generated for Raquel floyd/Dawood/Letty on:?07/18/2024 12:43 PM EST
--- OUTSIDE RECORDS SUMMARY | 2024-07-18 12:43 | XMS_ITS ---
[facility] Address [address] [place] [address] Care Team Providers Care Alternative Medicine Practitioner Name Role Phone Kevin Frey MD Primary Care Provider Unavaila ble Black, Marie Unavailable [phone] Allergies No Known Allergies REASON FOR VISIT [...] Ordered Date Performed Result Body Sit e 95716-JAUA SKIN LESIONS, OVER 4 06/20/2024 N/A R5496-VBFFEEET DYSTROPHIC NAILS ANY # 06/20/2024 N/A Encounters Encounter Location Date Provider Diagnosis [facility] [address] [address] 06/20/2024 Marie Norton Type 2 diabetes mellitus with diabetic polyneuropathy E11.42 Assessments Encounter Date Diagnosis (ICD Code) Assessment Notes Treatment Notes Treatment Clinical Notes Section Notes 06/20/2024 Type 2 diabetes mellitus with diabetic polyneuropathy (ICD-10 - E11.42) Plan Of Treatment Pending Test Test Name Order Date 82760-TMAZ SKIN LESIONS, OVER 4 06/20/20 24 P8756-NJKLVGAR DYSTROPHIC NAILS ANY # Next Appt Details Follow Up: prn, Reason: Provider Name:Marie Norton , 2024 09:30:00 AM, [address] [place] [address], [phone], Procedure Notes * Category Sub-Category Detail Notes [...] tissue nippers, and/or power dremel instrumentation - 93326 Nail Reduction Nail Reduction (-27) Trimming o [...] * Yayo SIMPSONDOB:1955 ([age] yo M)Acc No.[id number]:06/20/2024 Progress Note Patient:?Yayo SIMPSON Provider:?Marie Norton DPM :1955???Age:68 Y???Sex:Male Artie e:06/20/2024 Address:[address] [place], [place] [address] Pcp:Kevin Frey MD Subjective: * Chief Complaints: [...] no. ?Exercise: no. ?Marital status: . 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 * Medications:?TakingTresiba F reeStyle System Kit Enalapril [...] tissue nippers, and/or power dremel instrumentation - 26755.?Nail Reduction:?Nail Reduction?(-27) Trimming of all dystrophic nails [...] or bed tissue - G0127.? * Procedure Codes:?85890 TRIM SKIN LESIONS, OVER 4, Modifiers: XS G0127 TRIMMING DYSTROPHIC NAILS ANY #, Modifiers: XS * Follow Up:?prn * Images: * Sign off status: Completed true * Provider:?Marie Norton DPM Date:?2023 Generated for Raquel floyd/Dawood/Letty on:?07/18/2024 12:43 PM EST History and Physical Notes * [...] Eye Exam:: no retin opathy Vascular DP PULSES (B): 2/4, B/L PT PULSES (B): 2/4, B/L CAPILLARY FILL TIME: immediate, all digi ts, B/L TEMPERTURE GRADIENT (C): normal, warm to cool, proximal to distal, B/L, B/L TROPHIC CONDITION-TEXTURE/ELASTICITY/TURGOR/HAIR GROWTH (B): normal, B/L Nails NAILS are: Elongated, overgrown, dystro phic, 2-5 B/L
--- OUTSIDE RECORDS SUMMARY | 2024-07-18 12:43 | XMS_ITS | Patient Health Record ---
[facility] Address [address] [place] [address] Care Team Providers Care Drafter Apprentice Name Role Phone Kevin Frey MD Primary Care Provider Unavaila ble Black, Marie Unavailable [phone] Allergies No Known Allergies Results Component Value [...] Problem Acquired hammer toe of right foot (6677275406076638 ) Other hammer toe(s) (acquired), right foot (M20.41) Active confirmed Problem Acquired hammer toe of left foot (5533600360837228 ) Other hammer toe(s) (acquired), left foot (M20.42) Active confirmed Problem Non-pressure ulcer lower limb (980314840) Non-pressure chronic ulcer of other part of left foot limited to breakdown of skin (L97.521) Active confirmed Problem Polyneuropathy due to type 2 diabetes mellitus (292050795) Type 2 diabetes mellitus with diabetic polyneuropathy (E11.42) Active confirmed Problem Localized, primary osteoarthritis of the ankle and/or foot (643443146) Arthritis of joint of lesser toe, left (M19.072) Active confirmed Problem Localized, primary osteoarthritis of the ankle and/or foot (998544425) Arthritis of joint of lesser toe, right (M19.071) Active confirmed Vital Signs Height 5ft 7in in 06/20/2024 Weight 210 lbs 06/20/2024 BMI 32.89 kg/m2 06/20/2024 Procedures Procedure Date Ordered Date Performed Result Body Sit e 66984-POIV SKIN LESIONS, OVER 4 07/23/2023 N/A N6137-XWJFNTDM DYSTROPHIC NAILS ANY # 07/23/2023 N/A 42225-KCWH SKIN LESIONS, OVER 4 09/24/2023 N/A Q7501-HUPFPAYS DYSTROPHIC NAILS ANY # 09/24/2023 N/A 70391-AXBQ SKIN LESIONS, OVER 4 12/10/2023 N/A T2829-DMOFCPVW DYSTROPHIC NAILS ANY # 12/10/2023 N/A 18653-PCOD SKIN LESIONS, OVER 4 03/17/2024 N/A R7305-ONAZNHIZ DYSTROPHIC NAILS ANY # 03/17/2024 N/A 56226-SQGP SKIN LESIONS, OVER 4 06/20/2024 N/A N2486-QVYVPQQT DYSTROPHIC NAILS ANY # 06/20/2024 N/A Encounters Encounter Location Date Provider Diagnosis [address] [address] 07/23/2023 Marie Black Type 2 diabetes mellitus with diabetic polyneuropathy E11.42 and Xerosis of skin L85.[address] [address] 09/24/2023 Marie Black Type 2 diabetes mellitus with diabetic polyneuropathy E11.[address] [address] 12/10/2023 Marie Black Type 2 diabetes mellitus with diabetic polyneuropathy E11.[address] [address] 03/17/2024 Marie Black Type 2 diabetes mellitus with diabetic polyneuropathy E11.42 [facility] [place] [address] [place] [address] 06/20/2024 Marie Norton Type 2 diabetes mellitus with diabetic polyneuropathy E11.42 [facility] [address] [place] [address] 02/08/2024 Marie Norton Assessments Encounter Date Diagnosis [...] Treatment Pending Test Test Name Order Date 08906- Debride <25 sq cm 10/30/2016 70833-LVFU SKIN LESIONS, OVER 4 08/27/19 18 45498-UNVP SKIN LESIONS, OVER 4 11/27/19 18 50528-AGDD SKIN LESIONS, OVER 4 02/26/20 18 91185-JDMR SKIN LESIONS, OVER 4 05/27/20 18 88103-CESG SKIN LESIONS, OVER 4 08/26/19 19 46178-FWOH SKIN LESIONS, OVER 4 11/26/19 19 46291-ACWX SKIN LESIONS, OVER 4 02/25/20 19 44788-VVXE SKIN LESIONS, OVER 4 06/02/20 19 69570-TIVU SKIN LESIONS, OVER 4 08/03/19 20 78109-YVSK SKIN LESIONS, OVER 4 09/15/19 20 74275-UPLR SKIN LESIONS, OVER 4 12/08/19 20 56906-URAI SKIN LESIONS, OVER 4 01/26/20 20 30394-OQJR SKIN LESIONS, OVER 4 03/15/20 20 68379-XNCC SKIN LESIONS, OVER 4 04/26/20 20 35051-QDQV SKIN LESIONS, OVER 4 06/14/20 20 15827-VTHN SKIN LESIONS, OVER 4 07/19/19 87809-HVXF SKIN LESIONS, OVER 4 09/06/19 56140-ECGS SKIN LESIONS, OVER 4 10/19/19 68507-FCCI SKIN LESIONS, OVER 4 11/27/19 00801-BZVJ SKIN LESIONS, OVER 4 02/22/20 77224-XGFI SKIN LESIONS, OVER 4 05/20/20 94509-PWQL SKIN LESIONS, OVER 4 08/05/19 67422-HZUT SKIN LESIONS, OVER 4 09/24/19 60626-TCRR SKIN LESIONS, OVER 4 11/26/19 46216-KHFF SKIN LESIONS, OVER 4 02/11/20 19987-JEOP SKIN LESIONS, OVER 4 05/08/20 98153-HSPN SKIN LESIONS, OVER 4 07/31/19 06317-RUUF SKIN LESIONS, OVER 4 10/10/19 39981-SBWH SKIN LESIONS, OVER 4 12/19/19 97185-BJGR SKIN LESIONS, OVER 4 02/20/20 32429-YQQT SKIN LESIONS, OVER 4 04/30/20 84618-RPXQ SKIN LESIONS, OVER 4 07/23/19 40355-PSLS SKIN LESIONS, OVER 4 09/24/19 22169-EGNQ SKIN LESIONS, OVER 4 12/10/19 05960-UONB SKIN LESIONS, OVER 4 03/17/20 54338-OKPV SKIN LESIONS, OVER 4 06/20/20 34067-ELBA SKIN LESIONS, 2 TO 4 10/31/19 40253-DGWS SKIN LESIONS, 2 TO 4 02/27/20 75871-HFCL SKIN LESIONS, 2 TO 4 05/28/20 17 10827-RYLV SKIN LESION 07/31/2016 30447-XQXO NAIL(S) 07/31/2016 95634-HMDQ NAIL(S) 10/30/2016 94571-NTKU NAIL(S) 02/26/2017 76143-PGGQ NAIL(S) 05/28/2017 48460-MTVE NAIL(S) 08/27/2017 21915-ODMS NAIL(S) 08/26/2018 26898-BZBQ NAIL(S) 05/27/2018 23681-RLIG NAIL(S) 02/25/2018 37138-GPBY NAIL(S) 11/26/2017 70106-TMQZ NAIL(S) 03/15/2020 06379-XCPI NAIL(S) 01/26/2020 35901-BFIV NAIL(S) 12/08/2019 20229-CPUF NAIL(S) 09/15/2019 98960-WGFL NAIL(S) 08/03/2019 26889-UDKD NAIL(S) 06/02/2019 79218-JIKH NAIL(S) 02/24/2019 01570-IPPX NAIL(S) 11/25/2018 65069-JGQN NAIL(S) 07/31/2022 23548-OUYT NAIL(S) 05/08/2022 54057-JDUN NAIL(S) 02/10/2022 30740-SDIB NAIL(S) 11/25/2021 75739-GPLZ NAIL(S) 09/23/2021 56057-DTOO NAIL(S) 08/05/2021 18465-XPCG NAIL(S) 05/20/2021 93752-ZLYS NAIL(S) 02/21/2021 50605-LELB NAIL(S) 11/26/2020 00068-KRVP NAIL(S) 10/18/2020 86810-SWJI NAIL(S) 09/06/2020 44081-LUKZ NAIL(S) 07/19/2020 48696-LZBK NAIL(S) 06/14/2020 56955-ZAVT NAIL(S) 04/26/2020 A2696-WJQPNAHB DYSTROPHIC NAILS ANY # H1673-FSVMEAZW DYSTROPHIC NAILS ANY # I5213-SBLYYHSR DYSTROPHIC NAILS ANY # K8818-JKWWFLAM DYSTROPHIC NAILS ANY # D2487-VCNPUIGN DYSTROPHIC NAILS ANY # S0254-XIBSDCNS DYSTROPHIC NAILS ANY # B0807-FVJOZRUH DYSTROPHIC NAILS ANY # N9131-TRPFVDTZ DYSTROPHIC NAILS ANY # R4287-DYXGUCZB DYSTROPHIC NAILS ANY # Next Appt Details Provider Name:Marie A Errol , 2024 09:30:00 AM, [address] [facility], [place], [address], Insurance Providers Payer Name Payer Address Payer Phone Subscriber Number Group Number Insured Name Patient Relationship to Insured Coverage Start Date Coverage End Date Medicare National [employer] [address] [place] [address] [id number] Yayo Simpson Self - patient is the insured A[employer] Secondary to Medicare [address] [place] [id number] Yayo Simpson Self - patient is the [...]
--- OUTSIDE RECORDS SUMMARY | 2024-07-18 12:43 | XMS_ITS ---
Author [facility] Address [address] [place] [address] Care Team Providers Care Chiller Technician Name Role Phone Kevin Frey MD Primary Care Provider Unavaila ble Black, Marie Unavailable [phone] Allergies No Known Allergies REASON FOR VISIT [...] Ordered Date Performed Result Body Sit e 49766-NUMS SKIN LESIONS, OVER 03/17/2024 N/A D4406-KAYTQKDR DYSTROPHIC NAILS ANY # 03/17/2024 N/A Encounters Encounter Location Date Provider Diagnosis [facility] [address] [address] 03/17/2024 Marie Norton Type 2 diabetes mellitus with diabetic polyneuropathy E11.42 Assessments Encounter Date Diagnosis (ICD Code) Assessment Notes Treatment Notes Treatment Clinical Notes Section Notes 03/17/2024 Type 2 diabetes mellitus with diabetic polyneuropathy (ICD-10 - E11.42) Plan Of Treatment Pending Test Test Name Order Date 58235-WYCJ SKIN LESIONS, OVER 03/17/20 24 W3781-RSNHISSF DYSTROPHIC NAILS ANY # Next Appt Details Follow Up: prn, Reason: Provider Name:Marie Norton , 2024 09:30:00 AM, [address] [place] [address], [phone], Procedure Notes * Category Sub-Category Detail Notes Keratoma Treatment Parring or Cutting o f Benign Hyperkeratotic Lesion(s) 26234 ( >4 Lesions) - The Benign hyperkeratotic [...] * Yayo SIMPSONDOB:1955 (7 7 yo M)Acc No.[id number]:03/17/2024 Progress Note Patient:Yayo Godoy Provider:?Marie Norton DPM :1955???Age:68 Y???Sex:Male Artie e:03/17/2024 Address:[address] [place] [address] [place] Pcp:Kevin Frey MD Subjective: * Chief Complaints: [...] Children. ?no Exercise. ?Marital status: . 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 * Medications:?TakingTresiba F reeStyle System Kit Enalapril [...] Procedures:?Keratoma Treatment:?Parring or Cutting of Benign Hyperkeratotic Lesion(s)?70882 ( >4 Lesions) - The Benign hyperkeratotic lesions, as described above were pared, and/or cut utilizing a sterile #15 blade, tissue nippers, and/or dremel.?Nail Reduction:?Nail Reduction?Trimming of dystrophic nails performed to reduce/remove overall nail length and girth, by manual and electrical means with use of a nail nipper and/or dremel, to more viable healthy nail plate or bed tissue 6-10 (G0127).? * Procedure Codes:?06144 TRIM SKIN LESIONS, OVER 4, Modifiers: XS G0127 TRIMMING DYSTROPHIC NAILS ANY #, Modifiers: XS * Follow Up:?prn * Images: * Sign off status: Completed true * Provider:?Marie Norton DPM Date:?2023 Generated for Raquel floyd/Dawood/eTransmitting on:?07/18/2024 12:43 PM EST History and Physical Notes * HPI (History of Present Illness) Category Sub-Category Detail Notes Category Not es At Risk footcare Pt States Last PCP Visit: Date: 4 Examination Category Sub-Category Detail Notes Category Not [...]
== END 2024-07-18 11:38 | disposition home or self-care (01) ==
PROVIDERS: PCP Internal Medicine; Visit Provider Internal Medicine
DX: E11.9 Type 2 diabetes mellitus without complications (principal); I10 Essential (primary) hypertension

== ENCOUNTER → 2024-07-18 11:06 | Outpatient (BNVA) | payer MEDICARE, SELFPAY | PROVIDERS: PCP Internal Medicine; Visit Provider Internal Medicine | DX: E11.9 Type 2 diabetes mellitus without complications (principal); I10 Essential (primary) hypertension | CPT/HCPCS: 83036; 96127; 99212 ==

== ENCOUNTER 2024-09-17 08:08 | Outpatient (REF) | payer MEDICARE, SELFPAY ==
--- OUTSIDE RECORDS SUMMARY | 2024-09-17 08:13 | XMS_ITS ---
Author Organization [facility] Address [address] [place] [address] Care Team Providers Care Certified Nursing Assistant Name Role Phone Kevin Frey MD Primary Care Provider Unavaila ble Black, Marie Unavailable [phone] Allergies No Known Allergies REASON FOR VISIT [...] Ordered Date Performed Result Body Sit e 65188-VEBX SKIN LESIONS, OVER 4 06/20/2024 N/A R2424-JLKQIZWT DYSTROPHIC NAILS ANY # 06/20/2024 N/A Encounters Encounter Location Date Provider Diagnosis [facility] [address] [address] 06/20/2024 Marie Norton Type 2 diabetes mellitus with diabetic polyneuropathy E11.42 Assessments Encounter Date Diagnosis (ICD Code) Assessment Notes Treatment Notes Treatment Clinical Notes Section Notes 06/20/2024 Type 2 diabetes mellitus with diabetic polyneuropathy (ICD-10 - E11.42) Plan Of Treatment Pending Test Test Name Order Date 23113-CAFF SKIN LESIONS, OVER 4 06/20/20 24 D9401-KDGVIRCT DYSTROPHIC NAILS ANY # Next Appt Details Follow Up: prn, Reason: Provider Name:Marie Norton , 2024 09:30:00 AM, [address] [place] [address], [phone], Procedure Notes * Category Sub-Category Detail Notes [...] tissue nippers, and/or power dremel instrumentation - 71240 Nail Reduction Nail Reduction (-27) Trimming o [...] * Yayo SIMPSONDOB:1955 ([age] yo M)Acc No.[id number]:06/20/2024 Progress Note Patient:?Yayo SIMPSON Provider:?Marie Norton DPM :1955???Age:68 Y???Sex:Male Artie e:06/20/2024 Address:[address] [place], [place] [phone] Pcp:Kevin Frey MD Subjective: * Chief Complaints: [...] stic Procedure:?Colonascopy 09/13 * Family History:?Mother: gabi kelely?Father: .?Siblings: , Cancer, diagnosed with Other malignant [...] no. ?Exercise: no. ?Marital status: . 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 * Medications:?TakingTresiba F reeStyle System Kit Enalapril [...] 8.1 * Examination: ???Ophthalmology Referral: ?DIABETES EYE EXAM?Procedure Performed:?Yes ?Date of Exam Performed?07/13/2023 ?Findings of Diabetic Eye Exam:?no retinopathy?Neurological: ?SENSORY:?Neurological exam demonstrates, reduced light touch sensation, [...] tissue nippers, and/or power dremel instrumentation - 99555.?Nail Reduction:?Nail Reduction?(-27) Trimming of all dystrophic nails [...] or bed tissue - G0127.? * Procedure Codes:?59807 TRIM SKIN LESIONS, OVER 4, Modifiers: XS G0127 TRIMMING DYSTROPHIC NAILS ANY #, Modifiers: XS * Follow Up:?prn * Images: * Sign off status: Completed true * Provider:?Marie Norton DPM Date:?2023 Generated for Raquel floyd/Dawood/Letty on:?09/17/2024 08:12 AM EST History and Physical Notes * HPI [...]
--- OUTSIDE RECORDS SUMMARY | 2024-09-17 08:13 | XMS_ITS | Continuity of Care Document ---
Author Organization [facility] Address [address] [place] [address] Phone Care Team Providers Care Lock Tender Chief Operator Name Role Phone Huseyin Vargas MD Unavailable Unavailable Procedures Procedure Date OV, Estab Pt, Level III Binocular Microscopy OV, Estab Pt, Level III Binocular Microscopy Tympanostomy,Local Anesthesia 7 OV, Estab Pt, Level III Comp Audiometry Threshold Eval 07 Tympanometry Acoustic Reflex Testing OV, Estab Pt, Level II Tympanometry Advance Directives Directive Yes / No Effective Date File Name No Information Encounters Encounter Description Practice Location Reason(s) For Visit Diagnoses Date Provider Providers Copied on Encounter OV, Estab Pt, Level III [facility] [address], [place], [place], [id number] , [place] tel: [phone] [facility] Otogenic PainDysfunct Eustachian TubeOtorrhea Nos 8 Sam Fontanez. [address] [facility] [address], [place], [place], [id number], [place]. tel: [phone] Referring Provider: Greg Morgan, [address] [facility] [address], [place], [address]. tel:[phone] OV, Estab Pt, Level III [facility], [address], [place], [place], [id number] , [place] tel: [phone] [facility] Dysfunct Eustachian TubeOtogenic Pain 8 Hal Garza. [address], [id number], . tel: [phone] Referring Provider: Greg Morgan, [address] [address], [place], [address]. tel:[phone] [facility], [address], [place], [place], [id number] , tel: [phone] [facility] Dysfunct Eustachian Tube 7 No Information Referring Provider: Greg Morgan, [address] [place] [address], [address]. tel:[phone] OV, Estab Pt, Level III [facility], [address], [place], [place], [id number] , tel: [phone] [facility] Chr Serous Om Simp/nosSenso ry Hearing Loss 7 No Information Referring Provider: Greg Morgan, [address] [address], [place], [address]. tel:[phone] OV, Estab Pt, Level II [facility], [address], [place], [place], [id number] , tel: [phone] [facility] Otogenic PainDysfunct Eustachian Tube 7 Sam Fontanez. [address], [facility] [address], [place], [id number], . tel: [phone] Referring Provider: Greg Morgan, [address] [address], [place], [address]. tel:[phone] [facility], [address], [place], [place], [id number] , [place] tel: [phone] [facility] Chr Serous Om Simp/nos 6 No Information Referring Provider: Greg Morgan, [address] [facility], [place], [address]. tel:[phone] [facility], [address], [place], [place], [id number] , [place] tel: [phone] [facility] Chr Serous Om Simp/nos 6 No Information Referring Provider: Greg Morgan, [address] [facility], [place], [address]. tel:[phone] [facility], [address], [place], [place], [id number] , [place] tel: [phone] [facility] Chr Serous Om Simp/nos 6 No Information Referring Provider: Greg Morgan, [address] [facility] [address] [facility], [place], [address]. tel:[phone] [facility], [address], [place], [place], [id number] , [place] tel: [phone] [facility] Chr Serous Om Simp/nos 6 No Information Referring Provider: Greg Morgan, [address], [place], [address]. tel:[phone] [facility], [address], [place], [place], [id number] , [place] tel: [phone] [facility] Barotrauma, Otitic 6 No Information Referring Provider: Greg Morgan, [address], [place], [address]. tel:[phone] Family History Family Member Type Diagnosis Age At Onset No Information Payers Payer name Insurance type Covered constitution party ID Authoriza tideepak(s) No Information Social History Type Description Quantity Date Captured Comments Sex Male Smoking Status No Information Chief Complaint And Reason For Visit No Information Reason For Referral Reason For Referral No Information History Of Present Illness Encounter Date Complaint History Of Prese nt Illness No Information Functional Status Date Functional Assessmen t No Information Instructions Date Instruction Additional Infor mation No Information Assessments Type Assessment Date No Information Patient Care Teams Name Effective Dates (start - stop) Status Members No Information
--- OUTSIDE RECORDS SUMMARY | 2024-09-17 08:13 | XMS_ITS ---
Author Organization [facility] Address [address] [place] [address] Care Team Providers Care Yarn Wrapper Name Role Phone Kevin Frey MD Primary Care Provider Unavaila ble Black, Marie Unavailable [phone] Allergies No Known Allergies REASON FOR VISIT [...] Ordered Date Performed Result Body Sit e 97757-ZGFG SKIN LESIONS, OVER 03/17/2024 N/A D5322-EJOKNZPZ DYSTROPHIC NAILS ANY # 03/17/2024 N/A Encounters Encounter Location Date Provider Diagnosis [facility] [address] [address] 03/17/2024 Marie Norton Type 2 diabetes mellitus with diabetic polyneuropathy E11.42 Assessments Encounter Date Diagnosis (ICD Code) Assessment Notes Treatment Notes Treatment Clinical Notes Section Notes 03/17/2024 Type 2 diabetes mellitus with diabetic polyneuropathy (ICD-10 - E11.42) Plan Of Treatment Pending Test Test Name Order Date 09318-XQWQ SKIN LESIONS, OVER 03/17/20 24 A8214-KKVSSMUG DYSTROPHIC NAILS ANY # Next Appt Details Follow Up: prn, Reason: Provider Name:Marie Norton , 2024 09:30:00 AM, [address] [place] [address], [phone], Procedure Notes * Category Sub-Category Detail Notes Keratoma Treatment Parring or Cutting o f Benign Hyperkeratotic Lesion(s) 82627 ( >4 Lesions) - The Benign hyperkeratotic [...] * Yayo SIMPSONDOB:1955 ([age] yo M)Acc No.[id number]:03/17/2024 Progress Note Patient:Yayo Godoy Provider:?Marie Norton DPM :1955???Age:68 Y???Sex:Male Artie e:03/17/2024 Address:[address] [place] [address] [place] Pcp:Kevin Frey MD Subjective: * Chief Complaints: [...] Children. ?no Exercise. ?Marital status: . 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 * Medications:?TakingTresiba F reeStyle System Kit Enalapril [...] 8.1 * Examination: ???Ophthalmology Referral: ?DIABETES EYE EXAM?Diabetic Retinopathy Screening:?Yes ?Findings of Diabetic Eye Exam:?no retinopathy?Neurological: ?SENSORY:?Neurological [...] Procedures:?Keratoma Treatment:?Parring or Cutting of Benign Hyperkeratotic Lesion(s)?78307 ( >4 Lesions) - The Benign hyperkeratotic lesions, as described above were pared, and/or cut utilizing a sterile #15 blade, tissue nippers, and/or dremel.?Nail Reduction:?Nail Reduction?Trimming of dystrophic nails performed to reduce/remove overall nail length and girth, by manual and electrical means with use of a nail nipper and/or dremel, to more viable healthy nail plate or bed tissue 6-10 (G0127).? * Procedure Codes:?03546 TRIM SKIN LESIONS, OVER 4, Modifiers: XS G0127 TRIMMING DYSTROPHIC NAILS ANY #, Modifiers: XS * Follow Up:?prn * Images: * Sign off status: Completed true * Provider:?Marie Norton DPM Date:?2023 Generated for Raquel floyd/Dawood/eTransmitting on:?09/17/2024 08:13 AM EST History and Physical Notes * [...]
--- OUTSIDE RECORDS SUMMARY | 2024-09-17 08:13 | XMS_ITS | Patient Health Record ---
Author Organization [facility] Address [address] [place] [address] Care Team Providers Care Flatwork Tier Name Role Phone Kevin Frey MD Primary Care Provider Unavaila ble Black, Marie Unavailable [phone] Allergies No Known Allergies Results Component Value Reference Range Notes HEMOGLOBIN A1C (GLYCOHEMOGLO BIN) Reviewed date:03/17/2024 09:53:02 [...] Problem Acquired hammer toe of right foot (8509536325097828 ) Other hammer toe(s) (acquired), right foot (M20.41) Active confirmed Problem Acquired hammer toe of left foot (8955924636933863 ) Other hammer toe(s) (acquired), left foot (M20.42) Active confirmed Problem Non-pressure ulcer lower limb (973198129) Non-pressure chronic ulcer of other part of left foot limited to breakdown of skin (L97.521) Active confirmed Problem Polyneuropathy due to type 2 diabetes mellitus (001581525) Type 2 diabetes mellitus with diabetic polyneuropathy (E11.42) Active confirmed Problem Localized, primary osteoarthritis of the ankle and/or foot (863722927) Arthritis of joint of lesser toe, left (M19.072) Active confirmed Problem Localized, primary osteoarthritis of the ankle and/or foot (403019992) Arthritis of joint of lesser toe, right (M19.071) Active confirmed Vital Signs Height 5ft 7in in 06/20/2024 Weight 210 lbs 06/20/2024 BMI 32.89 kg/m2 06/20/2024 Procedures Procedure Date Ordered Date Performed Result Body Sit e 93984-XODA SKIN LESIONS, OVER 4 09/24/2023 N/A U6567-PSEEBYMV DYSTROPHIC NAILS ANY # 09/24/2023 N/A 43321-EPPS SKIN LESIONS, OVER 4 12/10/2023 N/A N7446-YJQAGUOC DYSTROPHIC NAILS ANY # 12/10/2023 N/A 56779-YMIU SKIN LESIONS, OVER 4 03/17/2024 N/A N6616-SKEGOBGF DYSTROPHIC NAILS ANY # 03/17/2024 N/A 31564-SFYN SKIN LESIONS, OVER 4 06/20/2024 N/A A3630-BOUPLYER DYSTROPHIC NAILS ANY # 06/20/2024 N/A Encounters Encounter [facility] Date [facility] [address] [facility]/24/[facility]23 Marie Black Type 2 diabetes mellitus with diabetic polyneuropathy E11.42 [facility] [address] 12/10/2023 Marie Black Type 2 diabetes mellitus with diabetic polyneuropathy E11.[address] [address] 03/17/2024 Marie Black Type 2 diabetes mellitus with diabetic polyneuropathy E11.[address] [address] 06/20/2024 Marie Black Type 2 diabetes mellitus with diabetic polyneuropathy E11.[address] [address] 02/08/2024 Marie Black Assessments Encounter Date Diagnosis (ICD Code) Assessment Notes Treatment Notes Treatment Clinical Notes Section Notes 09/24/2023 Type 2 diabetes mellitus with diabetic polyneuropathy (ICD-10 - E11.42) 12/10/2023 Type 2 diabetes mellitus with diabetic polyneuropathy (ICD-10 - E11.42) 03/17/2024 Type 2 diabetes mellitus with diabetic polyneuropathy (ICD-10 - E11.42) 06/20/2024 Type 2 diabetes mellitus with diabetic polyneuropathy (ICD-10 - E11.42) Plan Of Treatment Pending Test Test Name Order Date 27486- Debride <25 sq cm 10/30/2016 09008-XMQY SKIN LESIONS, OVER 4 08/27/19 18 16490-LPIQ SKIN LESIONS, OVER 4 11/27/19 18 00073-PQAP SKIN LESIONS, OVER 4 02/26/20 18 94935-SCJG SKIN LESIONS, OVER 4 05/27/20 96511-HWIK SKIN LESIONS, OVER 4 08/26/19 63663-MAXQ SKIN LESIONS, OVER 4 11/26/19 77866-IIFA SKIN LESIONS, OVER 4 02/25/20 37651-VFAW SKIN LESIONS, OVER 4 06/02/20 75173-VPJX SKIN LESIONS, OVER 4 08/03/19 35823-CVFO SKIN LESIONS, OVER 4 09/15/19 53605-XJHV SKIN LESIONS, OVER 4 12/08/19 38714-ZEER SKIN LESIONS, OVER 4 01/26/20 55410-EWJU SKIN LESIONS, OVER 4 03/15/20 00859-KGIL SKIN LESIONS, OVER 4 04/26/20 85761-UWLM SKIN LESIONS, OVER 4 06/14/20 39118-UKTR SKIN LESIONS, OVER 4 07/19/19 73629-UMYS SKIN LESIONS, OVER 4 09/06/19 83071-VOLG SKIN LESIONS, OVER 4 10/19/19 03044-XBHP SKIN LESIONS, OVER 4 11/27/19 97900-TSVS SKIN LESIONS, OVER 4 02/22/20 95035-ZDKA SKIN LESIONS, OVER 4 05/20/20 94193-NPYH SKIN LESIONS, OVER 4 08/05/19 79418-JTEB SKIN LESIONS, OVER 4 09/24/19 65876-JNNP SKIN LESIONS, OVER 4 11/26/19 97591-HRWO SKIN LESIONS, OVER 4 02/11/20 33479-SVXJ SKIN LESIONS, OVER 4 05/08/20 77117-OHFX SKIN LESIONS, OVER 4 07/31/19 23 79583-VQWC SKIN LESIONS, OVER 4 10/10/19 56294-XLEX SKIN LESIONS, OVER 4 12/19/19 45786-WLXA SKIN LESIONS, OVER 4 02/20/20 21170-STHD SKIN LESIONS, OVER 4 04/30/20 66285-OELZ SKIN LESIONS, OVER 4 07/23/19 29756-WFMA SKIN LESIONS, OVER 4 09/24/19 65478-KTQD SKIN LESIONS, OVER 4 12/10/19 64717-ZJCD SKIN LESIONS, OVER 4 03/17/20 29723-QQGN SKIN LESIONS, OVER 4 06/20/20 34956-BIMP SKIN LESIONS, 2 TO 4 10/31/19 46996-RRFV SKIN LESIONS, 2 TO 4 02/27/20 75781-SASO SKIN LESIONS, 2 TO 4 05/28/20 17 35226-QKMS SKIN LESION 07/31/2016 34963-EVWV NAIL(S) 07/31/2016 88537-DHCQ NAIL(S) 10/30/2016 10753-JCKQ NAIL(S) 02/26/2017 38357-UDLK NAIL(S) 05/28/2017 79227-PTTX NAIL(S) 08/27/2017 16065-CSOA NAIL(S) 08/26/2018 95621-QYEF NAIL(S) 05/27/2018 79933-YOYX NAIL(S) 02/25/2018 67917-IMXU NAIL(S) 11/26/2017 06099-UQLJ NAIL(S) 03/15/2020 54608-EOLI NAIL(S) 01/26/2020 56881-BOUB NAIL(S) 12/08/2019 36502-UXWQ NAIL(S) 09/15/2019 53163-CZNQ NAIL(S) 08/03/2019 34627-XGGK NAIL(S) 06/02/2019 82631-GMTQ NAIL(S) 02/24/2019 37579-QJLG NAIL(S) 11/25/2018 34519-SHML NAIL(S) 07/31/2022 30182-CMGB NAIL(S) 05/08/2022 39428-DPRP NAIL(S) 02/10/2022 61278-HDPZ NAIL(S) 11/25/2021 71625-BRAB NAIL(S) 09/23/2021 24414-XJTL NAIL(S) 08/05/2021 93424-ZOTR NAIL(S) 05/20/2021 64026-AADM NAIL(S) 02/21/2021 20304-YLJB NAIL(S) 11/26/2020 37043-XEJH NAIL(S) 10/18/2020 00916-CJWH NAIL(S) 09/06/2020 69307-AXOT NAIL(S) 07/19/2020 34194-XVGM NAIL(S) 06/14/2020 42205-GBQR NAIL(S) 04/26/2020 K3117-AOJCLOQO DYSTROPHIC NAILS ANY # Y5557-JSBBTMSA DYSTROPHIC NAILS ANY # E1802-XOCKNXXR DYSTROPHIC NAILS ANY # N9414-NYLNSIIS DYSTROPHIC NAILS ANY # X5804-ARIHKOTJ DYSTROPHIC NAILS ANY # C7012-IZMLGVMZ DYSTROPHIC NAILS ANY # Z2752-FLFMMPOF DYSTROPHIC NAILS ANY # D4816-FLZLXKVS DYSTROPHIC NAILS ANY # N9498-YUKOEPHT DYSTROPHIC NAILS ANY # Next Appt Details Provider Name:Marie Norton , 2024 09:30:00 AM, [address] [facility], [place], [address], Insurance Providers Payer Name Payer Address Payer Phone Subscriber Number Group Number Insured Name Patient Relationship to Insured Coverage Start Date Coverage End Date Medicare National [employer]t [employer] [address] [facility] [place] [address] [id number] Yayo Simpson Self - patient is the insured AARP Secondary to Medicare [address] [place] [address] [phone] [id number] Yayo Simpson Self - patient is the insured Medical (General) History Medical History History ICD Code Back,Hip,and Knee pain Broken bones type II diabetes Diverticulosis Hypertension Sciatica Measles Mumps Chicken pox osteoarthritis- right hip Surgical History Surgery Date(Month/Year) pilonidal cyst excision 1979 tonsillectomy 1970 cataract surgery 11/03 Right hip replaced 02/10/24 Tooth extraction 01/2024 Hospitalization History Reason Date(Month/Year) Colonascopy 09/13
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
--- OUTSIDE RECORDS SUMMARY | 2024-09-17 08:13 | XMS_ITS ---
Author Organization [facility] Address [address] [place] [address] Care Team Providers Care Commercial Credit Specialist Name Role Phone Kevin Frey MD Primary Care Provider Unavaila Marie Berry [phone] REASON FOR VISIT soon sooner Encounters Encounter Location Date Provider Diagnosis [address] [address] 04/21/2024 Marie Norton Plan Of Treatment Next Appt Details Provider Name:Marie Varela Errol , 2024 09:30:00 AM, [address] [place] [address], [phone], Progress Notes * TATIANA, YayoDOB:1955 (7 7 yo M)Acc No.[id number]:04/21/2024 Progress Note Patient:?Yayo SIMPSON Provider:?Marie Norton DPM :1955???Age:68 Y???Sex:Male Artie e:04/21/2024 Address:[address] [place], [place] [address] Pcp:Kevin Frey MD Subjective: * Chief Complaints: [...]
[2024-09-17 08:58] LABS: MANUAL DIFF FLAG NO
[2024-09-17 10:04] LABS: Basophils Absolute Auto 0.1 X10*3/uL (0.0-0.2); Basophils Percent Auto 0.8 % (0-2); Eosinophils Absolute Auto 0.6 X10*3/uL (0.0-0.4); Eosinophils Percent Auto 6.8 % (0-4); Hemoglobin 13.6 g/dl (14.0-18.0); Imm Gran Abs Auto 0.04 X10*3/uL (0.00-0.03); Imm Gran Pct Auto 0.5 % (0.0-0.4); Lymphocytes Absolute Auto 2.3 X10*3/uL (1.2-4.9); Lymphocytes Percent Auto 26.6 % (20-40); Mean Corpuscular HGB Conc 33.2 g/dl (31.0-36.0); Mean Corpuscular Hemoglobin 27.9 pg (27.0-33.0); Mean Platelet Volume 10.3 fL (9.4-12.4); Monocytes Absolute Auto 0.8 X10*3/uL (0.1-1.2); Monocytes Percent Auto 9.4 % (2-11); Neutrophils Absolute Auto 4.9 x10*3/uL (2.0-8.3); Neutrophils Percent Auto 55.9 % (45-73); Platelet Count 214 X10*3/uL (160-400); Red Blood Count 4.88 X10*6/uL (4.60-5.80); White Blood Count 8.8 X10*3/uL (4.8-10.8)
[2024-09-17 10:33] LABS: Alanine Aminotransferase 38 U/L (0-40); Albumin Level 4.3 g/dL (3.5-5.0); Alkaline Phosphatase 83 U/L (39-117); Anion Gap 13 (12-20); Aspartate Amino Transferase 25 U/L (5-37); Bilirubin Total 0.3 mg/dL (0.0-1.0); Blood Urea Nitrogen 13 mg/dL (9-16); Calcium 9.3 mg/dL (8.4-10.2); Carbon Dioxide 28 mmol/L (22-29); Chloride 106 mmol/L (96-108); Cholesterol 176 mg/dL (<200); Estimated Glomerular Filt Rate > 60; Glucose Fasting 154 mg/dL (60-99); HDL Cholesterol 48 mg/dL (>40); LDL Cholesterol Calculated 95 mg/dL (<100); Potassium 4.9 mmol/L (3.3-5.1); Sodium 142 mmol/L (135-145); Total Protein 6.6 g/dL (6.5-8.0); Triglycerides 166 mg/dL (<150)
[2024-09-17 10:47] LABS: Thyroid Stimulating Hormone 2.25 uIU/mL (0.32-4.0)
[2024-09-17 11:06] LABS: Creatinine Urine 105.19 mg/dL; Microalbum/Creatinine Ratio Ur 12.3 ug/mg cr (<30)
== END 2024-09-17 08:09 | disposition home or self-care (01) ==
LOC: HO.LAB 08:08
PROVIDERS: PCP Internal Medicine; Visit Provider Internal Medicine
DX: Z13.0 Encounter for screening for diseases of the blood and blood-forming organs and certain disorders involving the immune mechanism (principal); Z13.29 Encounter for screening for other suspected endocrine disorder; E11.69 Type 2 diabetes mellitus with other specified complication; E66.01 Morbid (severe) obesity due to excess calories; Z13.220 Encounter for screening for lipoid disorders
CPT/HCPCS: 36415; 80053; 80061; 82043; 82570; 84443; 85025

== ENCOUNTER 2024-11-02 09:17 | Outpatient (AMB) | payer MEDICARE, SELFPAY ==
[2024-11-02 09:26] VITALS: BP 146/68; PULSE 77; O2SAT 97; BMI 34.9
--- NOTE | 2024-11-02 09:26 | A.OFFPC_ITS ---
Vital Signs 11/02/24 09:26 Height 5 ft 8 in Weight 229 lb 4.492 oz BMI 34.9 BP 146/68 H Blood Pressure Location Rt brachial Position Sitting Pulse 77 Pulse Source Pulse Oximeter Pulse Oximetry (%) 97 Oxygen Delivery Method Room Air Intake Visit Reasons: EEVRETT From Dr. Frey /ness nguyễn/eileen Allergies No Known Allergies Allergy (Verified 11/02/24 09:28) Tobacco use date assessed: 07/18/24 Fall risk assessment: No Falls in past year Last assessed Fall Risk: 11/02/24 Dental Screening Dental Screen Date: 07/18/[address] Frey /ness nguyễn/eileen HPI Details cough in the last few nights, dry , with sob, no rashes, am nausea, PFSH Medical History (Updated 11/02/24 @ 10:13 by Mariaa Youngblood MD) Diabetes type 2, uncontrolled Obesity Diabetes mellitus SOB (shortness of breath) on exertion Preop exam for internal medicine Diabetes mellitus with coincident hypertension Atherosclerotic cardiovascular disease ELLYN (obstructive sleep apnea) Obesity (BMI 30-39.9) Hypertension Dyslipidemia jail (current) use of insulin Surgical History (Updated 11/02/24 @ 10:03 by Mariaa Youngblood MD) History of YAG laser iridotomy of left eye History of right hip replacement Hx of colonoscopy Hx of colonoscopy History of uvulectomy History of removal of cyst History of tonsillectomy Family History Father Prostate cancer Mother Hypertension Hypercholesterolemia Maternal Grandmother Alzheimers disease Maternal Grandfather Heart disease Social History Housing: House Alcohol intake: current Alcohol intake frequency: 0-2 drinks per day Alcohol type: wine Patient Tobacco Use Status: Never used Tobacco Tobacco use type: Cigarette e-Cigarette/Vaping Use: Never Used Second Hand Smoke Exposure: No service: No Current occupational status: employed 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 1. Little interest or pleasure in doing things: not at all 2. Feeling down, depressed, or hopeless: not at all 3. Trouble falling or staying asleep, or sleeping too much: not at all 4. Feeling tired or having little energy: not at all 5. Poor appetite or overeating: not at all 6. Feeling bad about yourself - or that you are a failure or have let yourself or your family down: not at all 7. Trouble concentrating on things, such as reading the newspaper or watching television: not at all 8. Moving or speaking so slowly that other people could have noticed. Or the opposite - being so fidgety or restless that you have been moving around a lot more than usual: not at all 9. Thoughts that you would be better off or of hurting yourself in some way: not at all Total score: 0 Depression Screening Interpretation: Negative Depression Screening Done: Yes Source: Developed by Drs. Tommie Phillips, Edilia Ortiz, Domingo Marquez and colleagues, with an educational vasiliy from [employer]. Thrive Questionnaire Date Thrive assessed: 07/18/24 Are you currently unemployed and looking for a job?: No AUDIT C Alcohol Use Questionnaire (AUDIT-C) 2. How many drinks containing alcohol do you have on a typical day when you are drinking?: 3 or 4 3. How often do you have six or more drinks on one occasion?: Never Total Score: 1 RHINA-7 AMB Questionnaire RHINA-7 Date RHINA - 7 assessed: 07/18/24 Source: Developed by Drs. Tommie Phillips, Edilia Ortiz, Domingo Marquez and colleagues, with an educational vasiliy from [employer]. Physical exam (Primary Care) Vital Signs: Last Vital Signs Pulse 77 11/02/24 09:26 BP 146/68 H 11/02/24 09:26 Pulse Ox 97 11/02/24 09:26 Oxygen Delivery Method Room Air 11/02/24 09:26 BMI result Body Mass Index 34.9 Tobacco/Smoking Status: Tobacco use Status Tobacco use date assessed 07/18/24 11/02/24 09:29 Patient Tobacco Use Status Never used Tobacco 11/02/24 09:29 Tobacco use type Cigarette 11/02/24 09:29 e-Cigarette/Vaping Use Never Used 11/02/24 09:29 PHQ-9: PHQ-9 Score PHQ-9: Total score 0 11/02/24 10:04 Depression Screening Interpretation: Negative Thrive Assessment: Date of Thrive Assessment Date Thrive assessed 07/18/24 11/02/24 09:29 Const General: alert; No acute distress Eyes Conjunctivae: conjunctivae normal Resp Auscultation: clear to auscultation bilaterally Cardio Rate: regular rate Rhythm: regular rhythm GI Inspection: Yes normal to inspection Extrem Other: Left leg swelling 2+ edema with pale discoloration, medial knee has hematoma General: Yes edema Results AMB Hemoglobin A1c AMB Hemoglobin A1c 7.4 % Last Edit by Lupe Wilson CMA on 11/02/24 09 :54 Results Reviewed Results Reviewed: Laboratory Last Values Hgb A1c (Clinic) 7.4 % (4.0-6.0) H 11/02/24 09:29 Coding Level of Care Code Est Pt Level 4 (76223) Complex EM visit Add On G2211 Diagnoses Type 2 diabetes mellitus with hyperglycemia E11.65 Hypertension I10 Dyslipidemia E78.5 Atherosclerotic cardiovascular disease I25.10 ELLYN (obstructive sleep apnea) G47.33 Obesity (BMI 30-39.9) E66.9 History of left hip replacement Z96.642 Left leg swelling M79.89 Assessment & Plan Assessment & Plan (1) Type 2 diabetes mellitus with hyperglycemia: Code(s): E11.65 - Type 2 diabetes mellitus with hyperglycemia Category: Medical Plan: Decrease the amount of carbohydrate intake, pasta, bread, rice and potatoes are all sugar and that is aside from all the sweet stuff, remember that fruits are good but they are Sweet also. Hemoglobin A1c goal of less than 7.0 patient on insulin Tresiba and Lyumjev sliding scale on metformin a 1000 mg twice a day. PAtient has the Dexcom & CGM BS has been high and adjust the insulin as needed. (2) Hypertension: Code(s): I10 - Essential (primary) hypertension Category: Medical Plan: Continue with blood pressure medication. Decrease salt intake and exercise on enalapril 10 mg once a day (3) Dyslipidemia: Code(s): E78.5 - Hyperlipidemia, unspecified Category: Medical Plan: Avoid fried foods, chicken skin, eggs, butter margarine, pastries and meat. Be it pork or beef they have a lot of cholesterol LDL goal of less than 70 and triglyceride of less than 150 patient does take atorvastatin 20 mg once a day (4) Atherosclerotic cardiovascular disease: Code(s): I25.10 - Atherosclerotic heart disease of [place] coronary artery without angina pectoris Category: Medical Plan: Control the cholesterol, weight, blood pressure, diabetes (5) ELLYN (obstructive sleep apnea): Comment: No CPAP at present Code(s): G47.33 - Obstructive sleep apnea (adult) (pediatric) Category: Medical Plan: Discussed about sleep apnea and a CPAP (6) Obesity (BMI 30-39.9): Code(s): E66.9 - Obesity, unspecified Category: Medical Plan: Diet and exercise (7) History of left hip replacement: Comment: 10/26/2024 PARDEEP Negrete, BRothers Code(s): Z96.642 - Presence of left artificial hip joint Category: Surgical (8) Left leg swelling: Code(s): M79.89 - Other specified soft tissue disorders Category: Medical Plan: Discussed concerns about blood clot on the left leg as this is swollen markedly. And with the patient complaining of shortness of breath and cough D-dimer tested Plan History of Present Illness The patient is a 69-year-old male presenting for post-operative care following left hip surgery, with a focus on glycemic management and respiratory evaluation. Post-surgery, the patient noted a rise in blood sugar necessitating increased insulin usage without achieving desired glycemic control levels. He has gained 18 pounds since July, attributing part of this to reduced activity post-surgery. The patient reports a dry, persistent cough initiated a few days ago without producing phlegm and experiences shortness of breath with physical exertion. Chronic anabolic fatigue and balance issues have been a part of his medical history. Blood work from earlier in September indicates anemia. Health Maintenance - Discussed potential need for CPAP with consideration of sleep apnea history. - Recommended physical therapy adherence for post-operative recovery. - Addressed dietary modifications and exercise to tackle obesity and weight management. - Ensured patient awareness of potential D-dimer test for blood clots. Social History - The patient is compliant with physical therapy and plans to start formal sessions as part of his left hip surgery recovery. - Reports historically poor gym adherence, but expresses determination to improve activity levels for recovery. Review of Systems - Cardiovascular: Reports history of coronary artery disease. - Respiratory: Reports cough and shortness of breath. - Endocrine: Reports elevated blood glucose levels post-surgery. - Musculoskeletal: Reports left hip pain, imbalance, and prior right hip surgery. - General: Reports chronic fatigue and post-surgical weight gain. Physical Exam - Respiratory- No abnormal findings noted during auscultation. - Musculoskeletal- Left leg displays 2+ edema with pale discoloration and a hematoma present on medial side of left knee. Results - Labs: Hemoglobin A1c 7.4%, triglycerides 166 mg/dL, LDL 95 mg/dL from September 17 lab results. - Urine: No proteinuria reported in recent urinalysis. - D-dimer test recommended for evaluating risk of thrombosis. Plan Addressed the patient's post-surgical recovery, diabetes management, and respiratory evaluation. Recommended monitoring and potential adjustment of insulin for glycemic control, with contingency plans for alternative interventions if necessary. Emphasized diagnostic evaluation for thrombotic events through D-dimer testing and ultrasound of the left leg to assess suspected deep vein thrombosis. Advocated continuous engagement in physical therapy for improved post-operative outcomes and dietary and exercise adjustments to manage weight and enhance overall health. Patient was informed and verbally consented to the use of an ambient scribe for clinic note documentation during this visit. Discussion Notes During the visit, I discussed the patient's exacerbated post-surgical glycemic control and its correlation with stress and reduced activity levels. We reviewed strategies to adjust insulin usage and the importance of regular monitoring. The potential risks of thromboembolic events were highlighted, mandating a D-dimer test and ultrasound of the left leg given the current respiratory symptoms and edema presentation. We evaluated options for utilizing CPAP in managing sleep apnea concerns. The patient was informed about potential diagnostic processes, and management plans and consent was obtained for all procedural tests. The need for physical therapy adherence and lifestyle modification in weight management was emphasized. Follow-up considerations included closer monitoring of symptoms with awareness of urgent medical attention if necessary. Patient Instructions - Monitor blood glucose levels regularly and adjust insulin as advised. - Attend all scheduled physical therapy sessions for optimal post-surgical recovery. - Report any worsening of cough, respiratory symptoms, or sudden changes in your health. - Maintain a balanced diet and engage in gentle physical activity to manage weight and health. - Follow through with the scheduled D-dimer test and ultrasound of the left leg. - Contact the healthcare provider if new symptoms or concerns arise. Orders: Orders AMB Hemoglobin A1c Today Z13.9 - Encounter for screening, unspecified Ferritin Today M79.89 - Other specified soft tissue disorders Reticulocyte Count Today M79.89 - Other specified soft tissue disorders IRON PROFILE Today M79.89 - Other specified soft tissue disorders US venous duplex LE LT Today M79.89 - Other specified soft tissue disorders D Dimer High Sensitivity Today M79.89 - Other specified soft tissue disorders Complete Blood Count Auto Diff Today M79.89 - Other specified soft tissue disorders Comprehensive Met. Panel Today M79.89 - Other specified soft tissue disorders Vitamin B12 and Folate Today M79.89 - Other specified soft tissue disorders XR chest 2V Today M79.89 - Other specified soft tissue disorders B Type Natriuretic Peptide Today M79.89 - Other specified soft tissue disorders
--- OUTSIDE RECORDS SUMMARY | 2024-11-02 10:09 | XMS_ITS ---
[facility] Address [address] [place] [address] Care Team Providers Care Home School Liaison Officer Name Role Phone Kevin Frey MD Primary Care Provider Unavaila ble Black, Marie Unavailable [phone] Allergies No Known Allergies REASON FOR VISIT [...] Ordered Date Performed Result Body Sit e 50472-DXCN SKIN LESIONS, OVER 4 06/20/2024 N/A O1647-MPOBZMXJ DYSTROPHIC NAILS ANY # 06/20/2024 N/A Encounters Encounter Location Date Provider Diagnosis [facility] [address] [address] 06/20/2024 Marie Norton Type 2 diabetes mellitus with diabetic polyneuropathy E11.42 Assessments Encounter Date Diagnosis (ICD Code) Assessment Notes Treatment Notes Treatment Clinical Notes Section Notes 06/20/2024 Type 2 diabetes mellitus with diabetic polyneuropathy (ICD-10 - E11.42) Plan Of Treatment Pending Test Test Name Order Date 82887-KGJE SKIN LESIONS, OVER 4 06/20/20 24 G7818-WRGVCZLV DYSTROPHIC NAILS ANY # Next Appt Details Follow Up: prn, Reason: Provider Name:Marie Norton , 12/26/2024 08:00:00 AM, [address] [place] [address], [phone], Procedure Notes * Category Sub-Category Detail Notes [...] tissue nippers, and/or power dremel instrumentation - 77310 Nail Reduction Nail Reduction (-27) Trimming o [...] * Yayo SIMPSONDOB:1955 ([age] yo M)Acc No.[id number]:06/20/2024 Progress Note Patient:?Yayo SIMPSON Provider:?Marie Norton DPM :1955???Age:68 Y???Sex:Male Artie e:06/20/2024 Address:[address] [place], [place] [id number] Pcp:Kevin Frey MD Subjective: * Chief Complaints: [...] no. ?Exercise: no. ?Marital status: . 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 * Medications:?TakingTresiba F reeStyle System Kit Enalapril [...] tissue nippers, and/or power dremel instrumentation - 32082.?Nail Reduction:?Nail Reduction?(-27) Trimming of all dystrophic nails [...] or bed tissue - G0127.? * Procedure Codes:?52562 TRIM SKIN LESIONS, OVER 4, Modifiers: XS G0127 TRIMMING DYSTROPHIC NAILS ANY #, Modifiers: XS * Follow Up:?prn * Images: * Sign off status: Completed true * Provider:?Marie Norton DPM Date:?2023 Generated for Raquel floyd/Dawood/Letty on:?11/02/2024 10:09 AM EDT History and Physical Notes * HPI (History [...]
--- OUTSIDE RECORDS SUMMARY | 2024-11-02 10:09 | XMS_ITS ---
Author Organization [facility] Address [address] [place] [address] Care Team Providers Care Sulky Driver Name Role Phone Kevin Frey MD Primary Care Provider Unavaila Marie Berry [phone] REASON FOR VISIT soon sooner Encounters Encounter Location Date Provider Diagnosis [address] [address] 04/21/2024 Marie Norton Plan Of Treatment Next Appt Details Provider Name:Marie Varela Errol , 12/26/2024 08:00:00 AM, [address] [place] [address], [phone], Progress Notes * TATIANA, YayoDOB:1955 (7 8 yo M)Acc No.[id number]:04/21/2024 Progress Note Patient:?Yayo SIMPSON Provider:?Marie Norton DPM :1955???Age:68 Y???Sex:Male Artie e:04/21/2024 Address:[address] [place], [place] [address] [id number] Pcp:Kevin Frey MD Subjective: * Chief Complaints: [...]
--- OUTSIDE RECORDS SUMMARY | 2024-11-02 10:10 | XMS_ITS | Patient Health Record ---
Author Organization [facility] Address [address] [place] [address] Care Team Providers Care Diversified Crops Ii Farmworker Name Role Phone Kevin Frey MD Primary Care Provider Unavaila ble Black, Marie Unavailable [phone] Allergies No Known Allergies Results Component Value Reference Range Notes HEMOGLOBIN A1C (GLYCOHEMOGLO BIN) Reviewed date:03/17/2024 09:53:02 AM Interpretation: Performing Lab: Notes/Report: HEMOGLOBIN A1C % (HH) 8.1 HEMOGLOBIN A1C (GLYCOHEMOGLO BIN) Reviewed date:06/20/2024 08:35:17 AM Interpretation: Performing Lab: Notes/Report: HEMOGLOBIN A1C % (HH) 7.3 Reason For Referral No Information Medications Medication SIG (Take, Route, Frequency, Duration) Notes Start Date End Date Status FreeStyle System Act sendy Fiasp 100 UNIT/ML Subcutaneous Not-Taking Enalapril Maleate Ac tive NovoLOG 100 UNIT/ML 15 to 25 unit Subcutaneous daily Not-Taking Atorvastatin Calcium Active Lovastatin Not-Takin g Lyumjev 100 UNIT/ML INJECT 5 TO 35 UNITS UNDER THE SKIN BEFORE MEALS AND SNACKS 5 TIMES DAILY DIRECTED Injection for 27 Active metFORMIN HCl 1000 MG 1 tablet with [...] directed Subcutaneous Not-Taking Sildenafil Citrate N ot-Taking Tresiba Active Tresiba FlexTouch No t-Taking Immunizations Vaccine Route Administration Date Status Comme [...] Problem Acquired hammer toe of right foot (8884091370535110 ) Other hammer toe(s) (acquired), right foot (M20.41) Active confirmed Problem Acquired hammer toe of left foot (0631434071487432 ) Other hammer toe(s) (acquired), left foot (M20.42) Active confirmed Problem Non-pressure ulcer lower limb (622007233) Non-pressure chronic ulcer of other part of left foot limited to breakdown of skin (L97.521) Active confirmed Problem Polyneuropathy due to type 2 diabetes mellitus (008874669) Type 2 diabetes mellitus with diabetic polyneuropathy (E11.42) Active confirmed Problem Localized, primary osteoarthritis of the ankle and/or foot (439597283) Arthritis of joint of lesser toe, left (M19.072) Active confirmed Problem Localized, primary osteoarthritis of the ankle and/or foot (897720995) Arthritis of joint of lesser toe, right (M19.071) Active confirmed Vital Signs Blood pressure diastolic 82 mm Hg 2024 Height 5ft7in in 2024 Blood pressure systolic 120 mm Hg 2024 Weight 215 lbs 2024 BMI 33.67 kg/m2 2024 Procedures Procedure Date Ordered Date Performed Result Body Sit e 42049-ETBZ SKIN LESIONS, OVER 4 12/10/2023 N/A J9266-HRHHWSBQ DYSTROPHIC NAILS ANY # 12/10/2023 N/A 22293-CCZT SKIN LESIONS, OVER 4 03/17/2024 N/A S7026-ZFPIDYCG DYSTROPHIC NAILS ANY # 03/17/2024 N/A 16098-EBSG SKIN LESIONS, OVER 4 06/20/2024 N/A A1413-PFXCBJBN DYSTROPHIC NAILS ANY # 06/20/2024 N/A 61262-WWZQ SKIN LESIONS, OVER 4 2024 N/A Q8736-CENDLUGY DYSTROPHIC NAILS ANY # 2024 N/A Encounters Encounter Location Date [facility] [address] 12/10/2023 Marie Black Type 2 diabetes mellitus with diabetic polyneuropathy E11.[address] [address] 03/17/2024 Marie Black Type 2 diabetes mellitus with diabetic polyneuropathy E11.[address] [address] 06/20/2024 Marie Black Type 2 diabetes mellitus with diabetic polyneuropathy E11.[address] [address] 2024 Marie Black Type 2 diabetes mellitus with diabetic polyneuropathy E11.[address] [address] 02/08/2024 Marie Black Assessments Encounter Date Diagnosis (ICD Code) Assessment Notes Treatment Notes Treatment Clinical Notes Section Notes 12/10/2023 Type 2 diabetes mellitus with diabetic polyneuropathy (ICD-10 - E11.42) 03/17/2024 Type 2 diabetes mellitus with diabetic polyneuropathy (ICD-10 - E11.42) 06/20/2024 Type 2 diabetes mellitus with diabetic polyneuropathy (ICD-10 - E11.42) 2024 Type 2 diabetes mellitus with diabetic polyneuropathy (ICD-10 - E11.42) Plan Of Treatment Pending Test Test Name Order Date 26102- Debride <25 sq cm 10/30/2016 98646-POCZ SKIN LESIONS, OVER 4 08/27/19 18 50817-QBGR SKIN LESIONS, OVER 4 11/27/19 18 20740-LYMN SKIN LESIONS, OVER 4 02/26/20 18 51193-QKBT SKIN LESIONS, OVER 4 05/27/20 18 67967-ZONH SKIN LESIONS, OVER 4 08/26/19 19 28253-NUGT SKIN LESIONS, OVER 4 11/26/19 19 05750-RORU SKIN LESIONS, OVER 4 02/25/20 19 88691-GBIS SKIN LESIONS, OVER 4 06/02/20 19 02024-IZKW SKIN LESIONS, OVER 4 08/03/19 20 98702-UOGT SKIN LESIONS, OVER 4 09/15/19 20 63775-LBPD SKIN LESIONS, OVER 4 12/08/19 20 62821-OEDY SKIN LESIONS, OVER 4 01/26/20 20 50010-ZNOB SKIN LESIONS, OVER 4 03/15/20 20 12559-EDZE SKIN LESIONS, OVER 4 04/26/20 20 34735-PHUL SKIN LESIONS, OVER 4 06/14/20 20 18414-RXZD SKIN LESIONS, OVER 4 07/19/19 21 26317-LXRQ SKIN LESIONS, OVER 4 09/06/19 21 43783-GYDK SKIN LESIONS, OVER 4 10/19/19 21 17665-GOOV SKIN LESIONS, OVER 4 11/27/19 15376-YFGS SKIN LESIONS, OVER 4 02/22/20 78467-CSIX SKIN LESIONS, OVER 4 05/20/20 23932-OJAX SKIN LESIONS, OVER 4 08/05/19 17441-SCPS SKIN LESIONS, OVER 4 09/24/19 26760-HIVE SKIN LESIONS, OVER 4 11/26/19 48240-UTBU SKIN LESIONS, OVER 4 02/11/20 88695-NIGF SKIN LESIONS, OVER 4 05/08/20 22 62563-VKZR SKIN LESIONS, OVER 4 07/31/19 40370-PLLM SKIN LESIONS, OVER 4 10/10/19 23 56182-MPXR SKIN LESIONS, OVER 4 12/19/19 84346-LTEV SKIN LESIONS, OVER 4 02/20/20 94018-DOBJ SKIN LESIONS, OVER 4 04/30/20 58114-YZHX SKIN LESIONS, OVER 4 07/23/19 24 85412-PDTK SKIN LESIONS, OVER 4 09/24/19 36184-XZDA SKIN LESIONS, OVER 4 12/10/19 27950-ERDH SKIN LESIONS, OVER 4 03/17/20 68930-TJUV SKIN LESIONS, OVER 4 06/20/20 44060-YFIA SKIN LESIONS, OVER 4 09/20/19 25 87642-JNCI SKIN LESIONS, 2 TO 4 10/31/19 88470-IIYQ SKIN LESIONS, 2 TO 4 02/27/20 21971-CTUR SKIN LESIONS, 2 TO 4 05/28/20 17 16767-WVHM SKIN LESION 07/31/2016 27867-MNKU NAIL(S) 07/31/2016 48745-XAOR NAIL(S) 10/30/2016 40603-YCFC NAIL(S) 02/26/2017 69380-UMKW NAIL(S) 05/28/2017 53717-PTXJ NAIL(S) 08/27/2017 68662-CIRN NAIL(S) 08/26/2018 11214-HHKP NAIL(S) 05/27/2018 25823-TOCJ NAIL(S) 02/25/2018 46555-GKWM NAIL(S) 11/26/2017 01589-WWDF NAIL(S) 03/15/2020 55072-XJZV NAIL(S) 01/26/2020 57456-EMUJ NAIL(S) 12/08/2019 51664-GLWB NAIL(S) 09/15/2019 24916-UVBD NAIL(S) 08/03/2019 60937-DQPU NAIL(S) 06/02/2019 07380-NYRD NAIL(S) 02/24/2019 33066-VCVX NAIL(S) 11/25/2018 08201-AQFK NAIL(S) 07/31/2022 52022-JHHX NAIL(S) 05/08/2022 06800-MVOU NAIL(S) 02/10/2022 99542-IIBZ NAIL(S) 11/25/2021 62110-CMBF NAIL(S) 09/23/2021 74317-KRHG NAIL(S) 08/05/2021 16781-UZOG NAIL(S) 05/20/2021 94063-ZSLZ NAIL(S) 02/21/2021 76015-AZFB NAIL(S) 11/26/2020 88613-BVCY NAIL(S) 10/18/2020 38120-CIUX NAIL(S) 09/06/2020 47028-DFAL NAIL(S) 07/19/2020 43491-ZCNY NAIL(S) 06/14/2020 40043-VBOV NAIL(S) 04/26/2020 J5835-VNIDAAWC DYSTROPHIC NAILS ANY # Z5252-VHCJOLDY DYSTROPHIC NAILS ANY # P9790-THCKQLIQ DYSTROPHIC NAILS ANY # V7993-ZWPHHIUN DYSTROPHIC NAILS ANY # A0769-WTGMBWTA DYSTROPHIC NAILS ANY # U6402-RJIVRHJD DYSTROPHIC NAILS ANY # D8189-VRJNKLJG DYSTROPHIC NAILS ANY # V5846-PPNVISAF DYSTROPHIC NAILS ANY # D3003-DXTQHQMI DYSTROPHIC NAILS ANY # O6653-CSGTQUJP DYSTROPHIC NAILS ANY # Next Appt Details Provider Name:Marie Norton , 12/26/2024 08:00:00 AM, [address] [place], [address], Insurance Providers Payer Name Payer Address Payer Phone Subscriber Number Group Number Insured Name Patient Relationship to Insured Coverage Start Date Coverage End Date Medicare [facility] [address] [place] [address] [id number] Yayo Simpson Self - patient is the insured AARP Secondary to Medicare [address] [place] [address] [id number] Yayo Simpson Self - patient is the insured Medical (General) History Medical History History ICD Code Back,Hip,and Knee pain Broken bones type II diabetes Diverticulosis Hypertension Sciatica Measles Mumps Chicken pox osteoarthritis- right hip Surgical History Surgery Date(Month/Year) pilonidal cyst excision 1979 tonsillectomy 1969 cataract surgery 11/03 Right hip replaced 02/10/24 Tooth extraction 01/2024 laser eye surgery 08/2024 Hospitalization History Reason Date(Month/Year) Colonascopy 09/13
--- OUTSIDE RECORDS SUMMARY | 2024-11-02 10:10 | XMS_ITS ---
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 Role Phone Kevin Frey MD Primary Care Provider Unavaila ble Black, Marie Unavailable [phone] Allergies No Known Allergies REASON FOR VISIT At Risk Footcare Medications Medication SIG (Take, Route, Frequency, Duration) Notes Start Date End Date Status Lyumjev 100 UNIT/ML INJECT 5 TO 35 [...] 100 UNIT/ML as directed Subcutaneous Not -Taking FreeStyle System Act sendy Enalapril Maleate Ac tive Atorvastatin Calcium Active Lovastatin Not-Takin g Tresiba Active Fiasp 100 UNIT/ML Subcutaneous Not-Taking NovoLOG 100 UNIT/ML 15 to 25 unit Subcutaneous daily Not-Taking HumaLOG 100 UNIT/ML as directed Subcutaneous Not-Taking Sildenafil Citrate N ot-Taking Tresiba FlexTouch No t-Taking Social History Tobacco Use: Social History Observation Description Date Details (start date - stop date) Never Smoker NA - NA Tobacco Use/Smoking Question Answer Notes Are you a: nonsmoker Additional Findings: Tobacco Non-User Current no n-smoker Tobacco use other than smoking: Question Answer Notes Are you an other tobacco user? No Vital Signs Height 5ft7in in 2024 Weight 215 lbs 2024 BMI 33.67 kg/m2 2024 Blood pressure systolic 120 mm Hg 09/20/19 25 Blood pressure diastolic 82 mm Hg 025 Procedures Procedure Date Ordered Date Performed Result Body Sit e [id number] SKIN LESIONS, OVER 4 2024 N/A [id number] DYSTROPHIC NAILS ANY # 2024 N/A Encounters Encounter Location Date Provider Diagnosis [facility] [address] [address] 2024 Marie Norton Type 2 diabetes mellitus with diabetic polyneuropathy E11.42 Assessments Encounter Date Diagnosis (ICD Code) Assessment Notes Treatment Notes Treatment Clinical Notes Section Notes 2024 Type 2 diabetes mellitus with diabetic polyneuropathy (ICD-10 - E11.42) Plan Of Treatment Pending Test Test Name Order Date [id number]-[id number] SKIN LESIONS, OVER 4 09/20/19 25 [id number] DYSTROPHIC NAILS ANY # Next Appt Details Follow Up: prn, Reason: Provider Name:Marie Norton , 12/26/2024 08:00:00 AM, [address] [place] [address], [phone], Procedure Notes * Category Sub-Category Detail Notes [...] at risk. Therefore, the benign hyperkeratotic lesions, ( 7 ) in total, locations as stated and described in the exam ( SUB MTH (s), 2, Left TA, T5 sub 1 b/l , Plantar Heel(s), B/L ), were pared, and/or cut utilizing a sterile 15 blade, tissue nippers, and/or power dremel instrumentation by the physician of record - [id number] Nail Reduction Nail Reduction (-27) Trimming o [...] locations as stated and described in the exam ( T1, T2, T3, T4, T6, T7, T8, T9, ), were debrided by the phisician of record to reduce/remove overall nail length and girth, by manual and electrical means with use of a nail nipper and/or dremel, to more viable healthy nail plate or bed tissue - G0127 Progress Notes * Yayo SIMPSONDOB:1955 ([age] yo M)Acc No.[id number] Progress Note Patient:?Yayo SIMPSON Provider:?Marie Norton DPM :1955???Age:69 Y???Sex:Male Artie e:2024 Address:[address] [place], [place] [id number] Pcp:Kevin Frey MD Subjective: * Chief Complaints: [...] 1970cataract surgery 11/03Right hip replaced 02/10/24Tooth extraction 01/2024laser eye surgery 08/2024 * Hospitalization/Major Diagno stic Procedure:?Colonascopy 09/13 * Family History:?Mother: gabi kelley?Father: .?Siblings: , Cancer, diagnosed with Other malignant neoplasm of unspecified site.? * Social History:?Tobacco Use:?Tobacco Use/Smoking?Are you a:?nonsmoker ?Additional Findings: Tobacco Non-User?Current non-smoker ?Tobacco use other than smoking?Are you an other tobacco user??No ???Miscellaneous:?Caffeine: yes, 3-5 cups per day. ?Children: no. ?Exercise: no. ?Marital status: . 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 * Medications:?TakingTresiba F reeStyle System Kit Enalapril [...] Allergies:?N.K.D.A.yes[Aller gies Verified] Objective: * Vitals:?Ht: 5ft7in, Wt:215, BMI:33.67, Shoe size: 9W, BP:120/82mm Hg, BS: 96, Ht-cm: 170.18 cm, Wt-k.52 kg. * ???Past Orders: ???Lab:HEMOGLOBIN A1C (GLYCO HEMOGLOBIN) (Order Date - 06/20/2024) (Collection Date & Time - 06/20/2024 08:35 AM) ? Value Reference Range ?HEMOGLOBIN A1C % (HH) 7.3 * Examination: ???Ophthalmology Referral: ?DIABETES EYE EXAM?Procedure Performed:?Yes ?Date of Exam Performed?08/13/2024 ?Findings of Diabetic Eye Exam:?no retinopathy?Neurological: ?SENSORY:?Neurological [...] Plantar Heel(s), B/L.?Nails: ?NAILS are:?Elongated, overgrown, dystrophic, 1, T2, T3, T4, T6, T7, T8, T9.?Vascular: ?DP PULSES (B):?2/4, B/L.?PT PULSES (B):?2/4, B/L.?CAPILLARY FILL TIME:?immediate, all digits, B/L.?TROPHIC CONDITION-TEXTURE/ELASTICITY/TURGOR/HAIR GROWTH (B):?normal, B/L.?TEMPERTURE GRADIENT (C):?normal, warm to cool, proximal to distal, B/L, [...] at risk. Therefore, the benign hyperkeratotic lesions, ( 7 ) in total, locations as stated and described in the exam ( SUB MTH (s), 2, Left TA, T5 sub 1 b/l , Plantar Heel(s), B/L ), were pared, and/or cut utilizing a sterile 15 blade, tissue nippers, and/or power dremel instrumentation by the physician of record - [id number].?Nail Reduction:?Nail Reduction?(-27) Trimming of all dystrophic nails - Due to the at risk nature of the patients medical condition as documented in the exam findings, performance of this nail treatment is medically necessary as its management by an unskilled/untrained nonprofessional would put this patients foot and overall health at risk. Therefore, the dystrophic nails, in locations as stated and described in the exam ( T1, T2, T3, T4, T6, T7, T8, T9, ), were debrided by the phisician of record to reduce/remove overall nail length and girth, by manual and electrical means with use of a nail nipper and/or dremel, to more viable healthy nail plate or bed tissue - G0127.? * Procedure Codes:?70302 TRIM SKIN LESIONS, OVER 4, Modifiers: XS G0127 TRIMMING DYSTROPHIC NAILS ANY #, Modifiers: XS * Preventive Medicine:? ??Screening/Special Tests:?Fall Risk?Screening:?No falls in the past year ?FALLS: Screening for Future Fall Risk?Have you had any falls with injury in the past year??No * Follow Up:?prn * Images: * Sign off status: Completed true * Provider:?Marie Norton DPM Date:?2024 Generated for Raquel floyd/Dawood/Letty on:?11/02/2024 10:09 AM [...] Perform ed:: Yes ?Date of Exam Performed: 08/13/2024 Findings of Diabetic Eye Exam:: no retin opathy Vascular DP PULSES (B): 2/4, B/L PT PULSES (B): 2/4, B/L CAPILLARY FILL TIME: immediate, all digi ts, B/L TEMPERTURE GRADIENT (C): normal, warm to cool, proximal to distal, B/L, B/L TROPHIC CONDITION-TEXTURE/ELASTICITY/TURGOR/HAIR GROWTH (B): normal, B/L Nails NAILS are: Elongated, overg rown, dystrophic, 1, T2, T3, T4, T6, T7, T8, T9
--- OUTSIDE RECORDS SUMMARY | 2024-11-02 10:10 | XMS_ITS | Data Portability ---
Author Organization [facility], [facility] Address [address] [place] [address] Care Team Providers Care Claim Processing Specialist Name Role Phone DERRICK NGUYEN Referring Provider [phone] KIANA MIRANDA Primary Care Provider [phone] Assessment Encounter Date Assessment Date Assessment LastModified by Organization Details LastModified Time 03/21/2024 03/21/2024 Assessment: Good gait pattern level and stairs, decreased pain. Challenged SLS on floor. Plan: Continue with PT at 2x/week focusing on decreasing pain, improving ROM, strength, optimizing gait and stair mechanics, and mobility for functional ADL's. [email or web address] Not available 03/21/2024 14:52:56 03/25/2024 03/25/2024 Imaging: Imaging ordered, independently reviewed and interpreted by Jordan Benítez MD reveals the following findings: XR Hip Right hip: Two views of the hip were obtained including AP pelvis and groin lateral views. Status post hip surgery: Status post MARKOS with no evidence of complication, well fixed, well aligned, and located. There is good jewish of leg length and offset without loosening or migration. Impression: Status post right anterior total hip arthroplasty, 6 weeks out Plan: The patient is doing well, continue activities as tolerated. Follow up with repeat radiographs in 1 year, or sooner if problems arise. [email or web address] Not available 03/25/2024 16:22:21 03/25/2024 03/25/2024 Assessment: Good reciprocal pattern on stairs. Good quality AMB without AD. Plan: DC I HEP [email or web address] Not available 03/25/2024 14:16:51 09/02/2024 09/02/2024 Nature of diagnosis was discussed with patient today. At this time patient has advanced osteoarthritis of the left hip. Has failed attempts at conservative management to include 6 weeks of home stretching strengthening program that was taught to him prior to his right total hip arthroplasty. Overall not happy with pain level function. Discussed with him the role of total joint arthroplasty just lying down right side. Detailed discussion regarding the patient? s pathoanatomy and treatment options conducted. The risks and benefits, potential complications including but not limited to failure to alleviate all pain, need for further surgery, infection, need for hardware implantation, stiffness, bleeding, neurovascular injury discussed in detail. I advised the patient that symptom resolution after this procedure is often protracted, and may be incomplete. I explained that, as an end result, permanent functional limitations may be recommended. All questions have been answered to their satisfaction, and I believe the patient has made an informed decision to proceed with surgery. Will plan for anterior approach. I recommend a total hip arthroplasty for relief of their hip disease. They have exhausted conservative measures. Their symptoms are significant enough to warrant replacement. I informed the patient that the goal is to offer significant pain relief for about 15 years, and hopefully this also improves their hip function. Activities can be resumed after surgery, however running and jumping are discouraged. They agree to this procedure. Prior to surgery the patient needs to have the following: CBC, CMP, medical clearance, Indications for surgery: Advanced joint disease demonstrated by: X-ray Failure of conservative management Unsuccessful history of appropriate conservative therapy (non-surgical medical management). Non surgical medical management was implemented for 3 months or more to assess effectiveness. Conservative treatment as clinically appropriate for the patient? s current episode of care including, but not limited to, one or more of the following: anti-inflammatory medications, analgesics, flexibility and muscle strengthening exercises, supervised physical therapy, activities of daily living (1ADLs) diminished despite completing a plan of care, activity restrictions as is reasonable, assistive device use, weight reduction as appropriate, and therapeutic injections into the joint as appropriate. Risks and benefits of surgery were discussed with the patient and the patient understood. I discussed the alternatives and details of surgery and postoperative care with the patient. The patient understands the concepts of surgery and the postoperative conditions required for healing. The patient further understands that surgery can have unfavorable outcomes. In particular, we discussed the possible complications of nonhealing of the tissues and need for reoperation, nerve injury, bleeding or blood loss requiring transfusion, hematoma or complications of anticoagulation used to prevent blood clots, infection requiring further surgery or removal of implants, massive infection requiring amputation, or continued or worse pain. We also discussed worsening of chronic medical conditions and life-threatening complications including stroke, clot, heart attack, pulmonary embolism and related to the surgery or anesthesia, or other factors. The patient understands these risks and benefits of surgery and wishes to proceed, and has signed consent willfully. Due to the condition of the joint, it is my medical opinion that further conservative treatment will not provide relief of their pain, thus we are proceeding with surgery. VTE risk factors: History of VTE: [No] Active malignancy (excluding skin cancer): [No] Systolic heart failure (LVEF < 40%): [No] Bilateral TKA or MARKOS being performed: [No] Current use of hormonal therapy: [No] (Testosterone use excluded) Oral contraceptive pills Hormone replacement therapy Known thrombophilic disorder: [No] Antiphospholipid Syndrome Factor V Leiden Prothrombin Gene Mutation Protein C/S Deficiency Anti-Thrombin Deficiency Paroxysmal Nocturnal Hemoglobinuria (PNH) Myeloproliferative Disorder/LISA-2 Mutation Polycythemia Vera Chronic Myelogenous Leukemia Essential Thrombocytosis Total risk factors: [0] Based on risk stratification above, will plan to use [aspirin] for DVT prophylaxis. Patients prescribed antithrombotic therapy for an indication other than post-operative VTE prophylaxis should be assessed on an individual basis for continuation of their current therapy. If using a direct oral anticoagulant (DOAC) as home regimen, either resume DOAC post-op, or consider temporary transition to Warfarin therapy in the post-operative period. [email or web address] Not available 09/02/2024 09:16:46 10/18/2024 10/18/2024 SURGICAL HISTORY AND PHYSICAL PRIMARY DIAGNOSIS: Osteoarthritis of the left hip. REASON FOR ADMISSION: The patient is being admitted for an anterior left total hip arthroplasty with Dr. Jordan Benítez on 10/26/2024. HISTORY OF PRESENT ILLNESS: The patient is a pleasant 69-year-old gentleman who presents here today with complaints of left hip pain. He has had this pain ongoing for several years and reports it has been getting significantly worse. He has recently had his right hip replaced by Dr. Benítez in 01/2024 and he is happy with those results. He has tried and failed nonoperative measures with the left hip. He reports the pain is severe enough it limits his ability to perform activities of daily living as well as social tasks and he is now ready to pursue an anterior left total hip arthroplasty by Dr. Jordan Benítez on 10/26/2024. PAST MEDICAL HISTORY: 1. Osteoarthritis of the right hip. 2. Hypertension. 3. Hyperlipidemia. 4. Insulin-dependent type 2 diabetes. Most recent hemoglobin A1c is 7.7. 5. History of splenic laceration. 6. History of lumbar spinal fracture. 7. Obstructive sleep apnea for which the patient reports he does not use CPAP. 8. Obesity with a BMI of 33. 9. Nonobstructive coronary artery disease where CT angiogram showed a 25% lesion to the LAD, otherwise very minimal if any CAD. PAST SURGICAL HISTORY: 1. UPPP. 2. Cataract surgery. 3. Tonsillectomy. 4. Pilonidal cyst excision. 5. Right total hip arthroplasty with Dr. Jordan Benítez on 02/10/2024. MEDICATIONS: Current medications include: 1. Atorvastatin 20 mg p.o. daily at bedtime. 2. Enalapril 10 mg p.o. daily. 3. Metformin 500 mg p.o. twice a day. 4. Lyumjev, that is a short-acting insulin sliding scale, he uses 5 to 35 units with meals. 5. Tresiba 28 units subcutaneous injection daily at bedtime. He will take half this dose the night before surgery. SOCIAL HISTORY: The patient is . His will be helping him with his postop care. He denies the use of any tobacco. He has a daily glass of wine and has occasional marijuana. PHYSICIANS: The patient's primary care provider is Dr. Derrick Nguyen. REVIEW OF SYSTEMS: The patient's 12-point review of systems is negative with the exception of the HPI. PHYSICAL EXAMINATION: VITAL SIGNS: Weight 221 pounds. GENERAL: He is alert and oriented. Normal insight, affect, and grooming. SKIN: Intact without rash or lesion. HEENT: Normocephalic. Conjunctiva pink. NECK: Supple. Trachea is midline. CHEST: Lungs are clear to auscultation bilaterally. Able to speak in complete sentences. CARDIOVASCULAR: Heart has a regular rate and rhythm. Normal S1, S2. No murmurs, rubs or gallops appreciated. EXTREMITIES: Lower extremities: The patient's left lower extremity skin is intact. There is no erythema, ecchymosis, or induration. Bilateral lower extremities with positive motor sensation screening intact. Calves are supple and nontender. Ankle motion is satisfactory. Skin about the feet intact. He has a negative straight leg raise test. PREOPERATIVE DIAGNOSTIC DATA: The patient's orthopedic x-ray shows advanced osteoarthritis of the left hip with near sisk-ec-bedg articulation, subchondral sclerosis, and osteophyte formation. There are no lytic or blastic lesions noted and no evidence of AVN. The right side has total joint arthroplasty with good interfaces, alignment, no evidence of lysis or loosening. The patient's preoperative EKG showed normal sinus rhythm at 64 beats per minute. The patient with his previous surgery had a stress test performed, which showed the myocardial perfusion imaging was normal without any fixed or reversible perfusion defect. His left ventricular function was normal at 65% at rest. LABORATORY DATA: CBC from 10/13 shows a hemoglobin of 14.2, hematocrit of 43.2, platelet count 243. Coags within normal limits. INR 1.0. Chemistries show a hemoglobin A1c of 7.7, creatinine of 0.76, estimated GFR of 98. ASSESSMENT AND PLAN: The patient has advanced osteoarthritis of the left hip and is now scheduled for an anterior left total hip arthroplasty with Dr. Jordan Benítez on 10/26/2024. He was seen by [facility] who report that the patient's risk for any major adverse cardiac or pulmonary events is low. No additional testing needed and no absolute medical contraindications identified to proceeding with the proposed surgery. The patient will receive intravenous tranexamic acid. He will be on aspirin postop for DVT prophylaxis. We will monitor an end-tidal CO2 and continuous O2 to manage his obstructive sleep apnea and we will check point of care and use an insulin sliding scale as needed to manage his diabetes. Discharge plans will be to home with services. The patient is hoping to go home same day of surgery. Questions have been answered. He acknowledges understanding and wishes to proceed. Prescriptions sent to the pharmacy today include Colace, Celebrex, Tylenol, pantoprazole, and ondansetron. Upon discharge, he would like a script for aspirin, pain medications, and with his previous surgery, he required a script for a muscle relaxer, diazepam. He would also like a script sent for that upon discharge as well as this helped his muscle spasms the most. CONTACTS: His , Kamilah, who can be reached at [phone]. [email or web address] Not available 10/18/2024 11:24:27 Plan of Treatment Reminders Order Date Submit Date Provider Last Modified By Organization Details Last Modified Time Details Appointments PT INITIAL EVAL 2024 03:00P M Audra Richard, DPT Not available Not available Not available POST OP 15 2024 02:15P M Stuart Gibson, PA-C Not available Not available Not available PT FOLLOW- UP 2024 02:30P M Paul Wilson, PT Not available Not available Not available PT FOLLOW- UP 2024 11:00A M Johan Scafuri, FEED IN WORKER Not available Not available Not available PT FOLLOW- UP 2024 11:30A M Johan Scafuri, FEED IN WORKER Not available Not available Not available PT FOLLOW- UP 2024 11:30A M Johan Scafuri, FEED IN WORKER Not available Not available Not available PT FOLLOW- UP 2024 01:30P M Paulesther Garciaek, PT Not available Not available Not available PT FOLLOW- UP 2024 01:30P M Paulesther Garciaek, PT Not available Not available Not available PT FOLLOW- UP 2024 11:00A M Johan Scafuri, FEED IN WORKER Not available Not available Not available PT FOLLOW- UP 2024 11:00A M Johan Scafuri, FEED IN WORKER Not available Not available Not available POST OP 10 2024 09:50A M Jordan Benítez MD Not available Not available Not available PT FOLLOW- UP 2024 11:30A M Johan Scafuri, FEED IN WORKER Not available Not available Not available PT FOLLOW- UP 2024 11:00A M Paul Florek, PT Not available Not available Not available PT FOLLOW- UP 2024 11:00A M Paul Florek, PT Not available Not available Not available Lab None recorde d. Referral None recorde d. Procedures None recorde d. Surgeries None recorde d. Imaging XR, hip + pelvis, unilate ral, 2 or 3 view - room 205, L hip 2v 2024 025 [email or web address] [facility], [address], [place], [address], 09/02/2024 10:04:00 XR, hip + pelvis, unilate ral, 2 or 3 view - 202 2nd po ARTHR AB protoco l 2023 024 [email or web address] [facility], [address], [address], [place], [address], 04/06/2024 15:55:24 Medication Orders Colace 100 mg capsule 2024 025 [id number], [address] [place] [address], [id number], 10/18/2024 10:17:39 Celebre x 200 mg capsule 2024 025 [facility] #[id number], [address] [place] [address], [id number], 10/18/2024 10:17:40 Tylenol 8 Hour 650 mg tablet, extende d release 2024 025 [facility] #[id number], [address] [place], [place], [id number], 10/18/2024 10:17:38 pantopr azole 40 mg tablet, delayed release 2024 025 [facility] #[id number], [address] [place] [address], [id number], 10/18/2024 10:17:40 ondanse felisha 4 mg disinte grating tablet 2024 025 [id number], [facility], [place], [phone], 10/18/2024 10:17:40 Patient TargetsNo targets recorded. Patient InstructionsNo instructions recorded. Reason for Referral None Reported. Results Created Date Observation Date Name Description Value Unit Range Abnormal Flag Note LastModifiedBy Organization Detail LastModifiedTime 02/19/20 24 02/19/2024 US, harjeet x, fede s, [facility] antelmo No observ ation record ed. [facility] [address], [place], [address], 02/23/2024 12:28:31 02/25/20 24 02/25/2024 XR, hip + pelvi s, unila teral , 2 or 3 view [email or web address]:/ [email or web address] ?Encry pted=s hAaTro YD8dLq bEUv6g %2BXZw aYqtaq 0bqfl% 2Fg9IQ a4ajBk vP9nXo QUaueC m3YtLR FvZlgJ JJ8mAn HZtai3 3k5022 AC0KoY 3uHVaP eUC8mr 84%3D INTERFACE [facility] [address], [place], [address], 02/25/2024 11:48:36 02/25/20 24 02/25/2024 XR, hip + pelvi s, unila teral , 2 or 3 view [email or web address]:/ [email or web address] ?Encry pted=s hAaTro YD8dLq bEUv6g %2BXZw aYqtaq 0bqfl% 2Fg9IQ a4ajBk vP9nXo QUaueC m3YtLR FvZlg JJ8mAn HZtai3 3z4496 AC0KoY 3uHVaP eUC8mr 84%3D INTERFACE [facility] [address], [place], [address], 02/25/2024 11:48:38 03/25/20 24 03/25/2024 XR, hip + pelvi s, unila teral , 2 or 3 view [email or web address]:/ [email or web address] ?Encry pted=s hAaTro YD8dLq bEUv6g %2BXZw aYqtaq 0bqfl% 2Fg9IQ a4ajBk vP9nXo QUaueC m3YtLR Zl JJ8mAn tai3 1t3341 AC0Kqa nmEV6a mKiQtr MwF INTERFACE [facility] [address] [facility] [address], [place], [address], 03/25/2024 16:21:52 03/25/20 24 03/25/2024 XR, hip + pelvi s, unila teral , 2 or 3 view http:/ [email or web address] ?Encry pted=s hAaTro YD8dLq bEUv6g %2BXZw aYqtaq 0bqfl% 2Fg9IQ a4ajBk vP9nXo QUaueC m3YtLR Zl JJ8[place] HZtai3 8y5961 AC0Kqa nmEV6a mKiQtr MwF INTERFACE [facility] [address] [facility] [place], [address], 03/25/2024 16:21:53 09/02/19 25 09/02/2024 XR, hip + pelvi s, unila teral , 2 or 3 view http:/ [email or web address] ?Encry pted=s hAaTro YD8dLq bEUv6g %2BXZw aYqtaq 0bqfl% 2Fg9IQ a4ajBk vP9nXo QUaueC m3YtLR Zl [facility] 4b4002 AC0Kqb X%2BFV qSvKiQ trMwF INTERFACE [facility] [address] [facility], [place], [address], 09/02/2024 08:21:16 09/02/19 25 09/02/2024 XR, hip + pelvi s, unila teral , 2 or 3 view http:/ [email or web address] ?Encry pted=s hAaTro YD8dLq bEUv6g %2BXZw aYqtaq 0bqfl% 2Fg9IQ a4ajBk vP9nXo QUaueC m3YtLR FvZlgJ JJ8mAn HZtai3 5a4236 AC0Kqb X%2BFV qSvKiQ trMwF INTERFACE [facility] [address], [place], [address], 09/02/2024 08:21:18 10/27/19 25 10/26/2024 XR, hip + pelvi s, unila teral , 2 or 3 view No observ ation record ed. [address], [address], 10/26/2024 17:40:45 10/28/19 25 10/26/2024 fluor oscop y (PROC ) No observ ation record ed. [address], [address], 10/31/2024 17:11:46 10/28/19 25 10/27/2024 XR, hip + pelvi s, unila teral , 2 or 3 view No observ ation record ed. [address], [address], 10/28/2024 12:58:56 Result Notes None recorded. Problems Name Problem SNOMED Code Status Onset Date Resolution Date Notes Provider Name and Address Organization Details Recorded Time History of total replacemen t of right hip joint 2827686885137 00 Active 2023 Jordan Benítez MD [address], [place], [address] , [facility] 4 16:22:20 Osteoarthr itis of right hip joint 8029746489900 07 Active 2023 Jordan Benítez MD [address], [place], [address] , [facility] 4 11:25:58 Osteoarthr itis of left hip joint 7833589949499 08 Active 2023 Clarissa Conroy APRN [address], [place], [address] , [facility] 5 10:16:12 Notes:Some problems listed i n Documents: #[id number], #[id number] could not be added to this patient's chart. Please review these documents and add these problems to the patient's chart manually as needed. Problem Notes None recorded. Procedures Surgical History Date Name Laterality Status Provider Name and Address Organization Details Recorded Time 4 95373 Therapeutic Exercise (1:1) completed Johan Terrazas PTA [address], [place], [address], [facility] 03/25/2024 14:15:10 4 62084 Therapeutic Exercise (1:1) completed Johan Terrazas PTA [address], [place], [address], [facility] 03/21/2024 07:02:09 4 99164: Gait training completed Johan Terrazas PTA [address], [place], [address], [facility] 03/21/2024 07:02:09 4 77938 Therapeutic Exercise (1:1) completed Paul Wilson PT [address], [place], [address], [facility] 03/17/2024 15:15:58 4 10262: Gait training completed Paul Wilson PT [address], [place], [address], [facility] 03/18/2024 16:07:19 4 29605 Therapeutic Exercise (1:1) completed Paul Wilson PT [address], [place], [address], [facility] 03/14/2024 11:16:41 4 76722: Gait training completed Paul Wilson, PT [address], [place], [address], [facility] 03/14/2024 11:16:41 4 81477: Manual therapy completed Paul Wilson, PT [address], [place], [address], [facility] 03/14/2024 11:16:41 4 73088 Therapeutic Exercise (1:1) completed Johna Scalateshari, FEED IN WORKER [address], [place], [address], [facility] 03/11/2024 14:59:34 4 61551: Gait training completed Johan Terrazas, FEED IN WORKER [address], [place], [address], [facility] 03/11/2024 14:59:34 4 53758: Manual therapy completed Johan Terrazas, FEED IN WORKER [address], [place], [address], [facility] 03/11/2024 14:59:34 64675 Therapeutic Exercise (1:1) completed Johan Moreri, FEED IN WORKER [address], [place], [address], [facility] 03/08/2024 15:07:08 4 93305: Gait training completed Johan Chaudharyfuri, FEED IN WORKER [address], [place], [address], [facility] 03/08/2024 15:06:22 77599: Manual therapy completed Johan Scafuri, FEED IN WORKER [address], [place], [address], [facility] 03/08/2024 15:07:24 30532 Therapeutic Exercise (1:1) completed Paul Wilson, PT [address], [place], [address], [facility] 03/04/2024 06:28:49 4 21347: Gait training completed Paul Wilson, PT [address], [place], [address], [facility] 03/04/2024 06:28:49 4 25048 Therapeutic Exercise (1:1) completed Paul Wilson, PT [address], [place], [address], [facility] 02/29/2024 08:35:58 4 12248: Gait training completed Paul Wilson PT [address], [place], [address], [facility] 02/29/2024 08:35:58 4 45212 Therapeutic Exercise (1:1) completed Paul Wilson, PT [address], [place], [address], [facility] 02/25/2024 07:02:01 4 10906: Gait training completed Paul Wilson PT [address], [place], [address], [facility] 02/25/2024 14:45:12 4 91809 Therapeutic Exercise (1:1) completed Paul Wilson PT [address], [place], [address], [facility] 02/22/2024 11:16:09 4 23992 Therapeutic Exercise (1:1) completed Paul Wilson PT [address], [place], [address], [facility] 02/22/2024 05:45:20 4 27669: Low complexity PT Eval completed Paul Wilson, PT [address], [place], [address], [facility] 02/22/2024 05:45:24 4 G8417 BMI Above Upper Parameters, F/U Documented completed Paul Wilson, PT [address], [place], [address], [facility] 02/22/2024 05:46:05 4 G8427 Current Medication Documented completed Paul Wilson, PT [address], [place], [address], [facility] 02/22/2024 05:46:00 4 07181 Therapeutic Exercise (1:1) completed Paul Wilson, PT [address] [facility], [place], [address], [facility] 01/12/2024 07:16:32 4 83728: Low complexity PT Eval completed Paul Wilson, PT [address], [place], [address], [facility] 01/12/2024 07:16:35 4 G8417 BMI Above Upper Parameters, F/U Documented completed Paul Wilson, PT [address] [facility], [place], [address], [facility] 01/13/2024 06:41:28 4 G8427 Current Medication Documented completed Paul Wilson, PT [address], [place], [address], [facility] 01/13/2024 06:41:21 Imaging Results Imaging Date Name Status LastModified by Organiz ation Details LastModified Time 02/19/2024 US, duplex, venous, lower extremity completed [facility] [address], [place], [address], 02/23/2024 12:28:31 02/25/2024 XR, hip + pelvis, unilateral, 2 or 3 view completed [facility] [address], [place], [address], 02/25/2024 11:48:36 02/25/2024 XR, hip + pelvis, unilateral, 2 or 3 view completed [facility] [address], [place], [address], 02/25/2024 11:48:38 03/25/2024 XR, hip + pelvis, unilateral, 2 or 3 view completed [facility] [address], [place], [address], 03/25/2024 16:21:52 03/25/2024 XR, hip + pelvis, unilateral, 2 or 3 view completed [facility] [address], [place], [address], 03/25/2024 16:21:53 09/02/2024 XR, hip + pelvis, unilateral, 2 or 3 view completed [facility] [address], [place], [address], 09/02/2024 08:21:16 09/02/2024 XR, hip + pelvis, unilateral, 2 or 3 view completed [facility] [address], [place], [address], 09/02/2024 08:21:18 10/26/2024 XR, hip + pelvis, unilateral, 2 or 3 view completed [address], [address], 10/26/2024 17:40:45 10/26/2024 fluoroscopy (PROC) completed [facility] [address] [place], [address], 10/31/2024 17:11:46 10/27/2024 XR, hip + pelvis, unilateral, 2 or 3 view completed [address], [address], 10/28/2024 12:58:56 Procedure Notes None recorded. Medical Equipment None Reported. Allergies No known drug allergies Medications Name Sig Start Date Stop Date Status Note LastModified by Organization Details LastModified Time celecoxib 200 mg capsule TAKE 1 CAPSULE BY MOUTH EVERY DAY FOR 33 DAYS DIRECTED active Not Available Not Available No t Available cyclobenzap rine 10 mg tablet TAKE 1 TABLET BY MOUTH THREE TIMES DAILY FOR MUSCLE SPASMS active Not Available Not Available No t Available amoxicillin 500 mg capsule 4 pills 1 hour prior to procedure 2023 active Not Available Not Available Not Avai lable Colace 100 mg capsule Take 1 capsule twice a day by oral route as directed for 30 days. 2024 active Not Available Not Available Not Avai lable atorvastati n 20 mg tablet active Not Available Not Available Not Available enalapril maleate 10 mg tablet active Not Available Not Available No t Available sildenafil 50 mg tablet TAKE ONE TABLET BY MOUTH EVERY DAY NEEDED FOR SEXUAL ACTIVITY active Not Available Not Available No t Available tizanidine 4 mg tablet TAKE 1 TABLET BY MOUTH EVERY 6 HOURS FOR 7 DAYS NEEDED FOR SPASM active Not Available Not Available No t Available meloxicam 15 mg tablet TAKE 1 TABLET BY MOUTH EVERY DAY 01/17 completed Not Available Not Available Not Available ondansetron HCl 4 mg tablet TAKE 1 TABLET BY MOUTH THREE TIMES DAILY FOR 7 DAYS DIRECTED active Not Available Not Available No t Available tramadol 50 mg tablet TAKE 1 TO 2 TABLETS BY MOUTH EVERY 6 HOURS NEEDED FOR MILD PAIN active Not Available Not Available No t Available acetaminoph en ER 650 mg tablet,exte nded release TAKE 1 TABLET BY MOUTH THREE TIMES DAILY active Not Available Not Available No t Available ketorolac 0.5 % eye drops 01/17 completed Not Available Not Available Not Available prednisolon e acetate 1 % eye drops,suspe nsion USE 1 DROP RIGHT EYE FOUR TIMES DAILY FOR 4 DAYS AFTER LASER active Not Available Not Available No t Available diazepam 2 mg tablet TAKE 1 TABLET BY MOUTH THREE TIMES A DAY NEEDED FOR MUSCLE SPASM active Not Available Not Available No t Available pantoprazol e 40 mg tablet,tree yed release TAKE 1 TABLET BY MOUTH EVERY DAY DIRECTED active Not Available Not Available No t Available ammonium lactate 12 % topical cream USE 1 APPLICATI ON EXTERNALL Y TWICE DAILY active Not Available Not Available No t Available ondansetron 4 mg disintegrat ing tablet DISSOLVE 1 TABLET ON THE TONGUE EVERY 6 TO 8 HOURS FOR 7 DAYS active Not Available Not Available No t Available metformin ER 500 mg tablet,exte nded release 24 hr active Not Available Not Available Not Available oxycodone 5 mg tablet TAKE 1 TO 2 TABLETS BY MOUTH EVERY 4 HOURS NEEDED FOR SEVERE PAIN active Not Available Not Available No t Available tadalafil 20 mg tablet active Not Available Not Available Not Available Tresiba FlexTouch U-200 insulin 200 unit/mL (3 mL) subcutaneou s pen INJECT 28 UNITS UNDER THE SKIN AT BEDTIME active Not Available Not Available No t Available BD Veo Insulin Syringe Ultra-Fine 1/2 mL 31 gauge x 15/64 USE 5 TIMES A DAY active Not Available Not Available No t Available BD Nallely 2nd Gen Pen Needle 32 gauge x 5/32 USE DIRECTED ONCE DAILY active Not Available Not Available No t Available Lyumjev U-100 Insulin 100 unit/mL subcutaneou s solution active Not Available Not Available N ot Available Vitals Date Recorded Body height Body mass index (BMI) Body weight Provider Name and Address Organization Details Last Updated DateTime 03/25/2024 170.18 cm 33.4 kg/m2 18244.17 g Angela Hanley [facility] 03/25/2024 14:57:23 Date Recorded Body height Body mass index (BMI) Body weight Provider Name and Address Organization Details Last Updated DateTime 09/02/2024 170.18 cm 33.7 kg/m2 90932.36 g Thelma Rivera [facility] 09/02/2024 08:11:29 Date Recorded Body height Body mass index (BMI) Body weight Provider Name and Address Organization Details Last Updated DateTime 10/18/2024 170.18 cm 35.6 kg/m2 739331.47 g JOYCE OLIVARES [facility] 10/18/2024 09:35:52 Social History Question Answer Notes LastModified by Organizat ion Details LastModified Time Tobacco Smoking Status Never Smoker Angela Hanley [facility] 03/25/2024 14:58:26 How Many Times Per Week Do You Consume Alcohol? 5-7 Times Per Week Information not available 03/25/2024 Do You Or Have You Ever Used E-cigarettes Or Vape? [facility] Information not available 03/25/2024 What Is Your Relationship Status? Information not available 03/25/2024 Do You Use Any Illicit Or Recreational Drugs? Yes Information not available 03/25/2024 How Many Years Have You Smoked Tobacco? 0 Information not available 03/25/2024 Do You Or Have You Ever Used Any Other Forms Of Tobacco Or Nicotine? No Information not available 03/25/2024 Sex: Male Functional Status None recorded. Mental Status None recorded. Family History Nothing Reported. Medical History Condition Response Diabetes Y Arthritis Y Sleep Apnea Y Hypertension Y Past Encounters Encounter ID Performer Location Encounter Start Date Encounter Closed Date Diagnosis/Indication Diagnosis SNOMED-CT Code Diagnosis ICD10 Code Diagnosis Note [id number] MD Arvin Burgos [address] [place] [address] 12/11/2023 09:16:19 01/01/2024 14:39:43 Pain in right hip joint 0843068008 06048 M25.551 Osteoarthr itis of right hip joint 3302823106 82540 M16.11 Osteoarthr itis of left hip joint 3881552854 56382 M16.12 [id number] MD Arvin Burgos PT [address] [place] [address] 01/12/2024 14:21:34 01/12/2024 15:02:16 Osteoarthritis of hip 070658944 M16.11 [id number] MD Arvin Burgos [address] [place] [address] 01/22/2024 11:54:26 02/15/2024 11:38:21 Osteoarthritis of right hip joint 2489724445 72188 M16.11 [id number] DWAYNE Chowdhury [address] [place] [address] 01/26/2024 10:03:43 02/22/2024 11:38:19 Osteoarthritis of right hip joint 6649296851 75499 M16.11 [id number] MD Arvin Burgos PT [address] [place] [address] 02/19/2024 13:04:01 02/19/2024 13:23:06 Aftercare 660628409 Z47.1 Z96.807 [id number] Paul Wilson, PT [facility] [address] [place] [address] 02/22/2024 10:32:56 02/22/2024 11:18:03 Aftercare 634264924 Z47.1 Z96.810 [id number] Paul Wilson, PT [facility] [address] [place] [address] 02/25/2024 12:08:46 02/25/2024 14:55:32 Aftercare 915535906 Z47.1 Z96.436 [id number] Jermaine Sierra PA-C [facility] [address] [place] [address] 02/25/2024 11:17:34 03/23/2024 15:19:55 History of total replacement of right hip joint 9878162908 03589 Z96.827 [id number] Paul Wilson, PT [facility] [address] [place] [address] 03/01/2024 13:08:54 03/01/2024 17:16:30 Aftercare [id number] Z47.1 Z96.807 [id number] Paul Wilson, PT [facility] [address] [place] [address] 03/04/2024 13:03:51 03/04/2024 13:52:03 Aftercare 783698937 Z47.1 Z96.394 [id number] Paul Radhaek, PT [facility] [address] [place] [address] 03/08/2024 12:55:06 03/08/2024 14:54:47 Aftercare [id number] Z47.1 Z96.874 [id number] Paul Radhaek, PT [facility] [address] [place] [address] 03/11/2024 12:59:00 03/11/2024 14:03:30 Aftercare [id number] Z47.1 Z96.436 [id number] Paul Radhaek, PT [facility] [address] [place] [address] 03/15/2024 12:55:25 03/15/2024 13:47:49 Aftercare 412190158 Z47.1 Z96.179 [id number] Paul Wilson, PT [facility] [address] [place] [address] 03/18/2024 14:02:07 03/18/2024 14:26:11 Aftercare [id number] Z47.1 Z96.079 [id number] Jordan Benítez MD [facility] [address] [place] [address] 03/21/2024 12:57:29 03/21/2024 13:38:00 Aftercare [id number] Z47.1 Z96.997 [id number] Paul Wilson, PT [facility] [address] [place] [address] 03/25/2024 12:57:00 03/25/2024 15:13:29 Aftercare [id number] Z47.1 Z96.646 [id number] Jordan Benítez MD [facility] [address] [place] [address] 03/25/2024 14:20:15 04/06/2024 15:55:24 History of total replacement of right hip joint 5024245094 16569 Z96.676 [id number] Jermaine Sierra PA-C [facility] [address] [place] [address] 09/02/2024 08:02:08 2024 14:57:14 Pain of left hip joint 7524226380 17373 M25.552 Osteoarthr itis of left hip joint 3885824533 33488 M16.12 [id number] Clarissa Conroy APRN [facility] [address] [place] [address] 10/18/2024 09:30:00 10/29/2024 04:01:46 Osteoarthritis of left hip joint 7082964160 43897 M16.12 Health Concerns Section Related Observation LastModified by Organization Detai ls LastModified Time None Recorded Concern Status LastModified by Organization Details LastModified Time None Recorded Advance Directives Directive None Recorded Payers Encounter Date Sequence Insurance Name Policy Number Policy Mccallum Covered Member ID Mccallum Member ID Guarantor Name 03/21/2024 1 [place] [employer] Yayo Simpson [id number] Yayo Tatiana 03/21/2024 2 [employer] HE[employer] OPTIONS (MEDICARE SUPPLEMENT) Yayo Tatiana [id number] Yayo Melendezck 03/25/2024 1 [place] [employer] [place] Yayo Melendezck [id number] Yayo Tatiana 03/25/2024 2 [employer] HE[employer]CARE OPTIONS (MEDICARE SUPPLEMENT) Yayo Simpson [id number] Yayo Simpson 03/25/2024 1 [place] [employer] Yayo Simpson [id number] Yayo Tatiana 03/25/2024 2 [employer] HEALTHCARE OPTIONS (MEDICARE SUPPLEMENT) Yayo Simpson [id number] Yayo Simpson 09/02/2024 1 [place] [employer] Yayo Simpson [id number] Yayo Tatiana 09/02/2024 2 [employer] HEALTHCARE OPTIONS (MEDICARE SUPPLEMENT) Yayo Tatiana [id number] Yayo Simpson 10/18/2024 1 [place] [employer] [place] Yayo Simpson [id number] Yayo Tatiana 10/18/2024 2 [employer] HE[employer]CARE OPTIONS (MEDICARE SUPPLEMENT) Yayo Simpson [id number] Yayo Tatiana Notes Date Note Type Note Provider Name and Address Organization Details Recorded Time 03/21/2024 text/html Pt states pain 1 /10 pain. Groin still feels tight. Paul iWlson, PT [address], [place], [address], [facility] 03/22/2024 07:50:50 03/25/2024 text/html Pt states pain 1 /10 pain. Groin still feels tight. Johan Terrazas, FEED IN WORKER [address], [place], [address], [facility] 03/25/2024 14:17:08 03/25/2024 text/html History of prese nt illness:This patient follows up today and is now 6 weeks out from right anterior total hip arthroplasty. Their pain is well controlled and they are progressing as expected with physical therapy. Able to do current activities without significant difficulty. They have no major complaints at this time and are satisfied with their current state of recovery.Past family, medical, social history and review of systems has been reviewed and updated, and is located in the patient? s chart. Jordan Benítez MD [address] [facility] [address], [place], [address], [facility] 03/25/2024 16:22:31 09/02/2024 text/html I am seeing the patient today under the supervision of {{Dr. Norma Mandujano*}} who was available but who did not see the patient. Patient comes in for evaluation of left hip pain. Patient reports pains been going on for about 6 months. Does not recall any new injury to account for this. Pain is in the groin of the right hip has pain discomfort any sort of hip flexion activity putting on shoes and socks getting in and out of a car. Patient states it feels very similar to his right hip. Patient has history of a right total hip arthroplasty doing very well in that regard. States that patient has been doing anti-inflammatory modalities has also done a home exercise strengthening program that was taught to him prior to his right total hip and this has not been as beneficial for him as well. Jermaine Sierra PA-C [address] [facility] [address], [place], [address], [facility] 09/02/2024 09:19:35
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
== END 2024-11-02 10:26 | disposition home or self-care (01) ==
LOC: HO.HMCH 09:17
PROVIDERS: PCP Internal Medicine; Visit Provider Internal Medicine
DX: E11.65 Type 2 diabetes mellitus with hyperglycemia (principal); I10 Essential (primary) hypertension; E66.9 Obesity, unspecified; Z68.34 Body mass index [BMI] 34.0-34.9, adult; E78.5 Hyperlipidemia, unspecified; I25.10 Atherosclerotic heart disease of native coronary artery without angina pectoris; G47.33 Obstructive sleep apnea (adult) (pediatric); Z96.642 Presence of left artificial hip joint; M79.89 Other specified soft tissue disorders

== ENCOUNTER → 2024-11-02 09:17 | Outpatient (BNVA) | payer MEDICARE, SELFPAY | PROVIDERS: PCP Internal Medicine; Visit Provider Internal Medicine | DX: Z13.89 Encounter for screening for other disorder (principal) | CPT/HCPCS: 83036; 99212 ==

== ENCOUNTER 2024-11-02 13:39 | Outpatient (REF) | payer MEDICARE, SELFPAY ==
--- NOTE | ~2024-11-02 | US_ITS ---
EXAMINATION: US TRIPLEX LOWER EXTREMITY, LEFT CLINICAL INFORMATION: Left leg edema. Postoperative patient. COMPARISON: None available. TECHNIQUE: Color-flow triplex imaging with spectral analysis and compression Doppler were performed on the left lower extremity. FINDINGS: Respiratory variation, normal compression and augmented flow are noted throughout the left lower extremity. The visualized common femoral vein, superficial femoral vein, profunda femoral vein, popliteal vein and midcalf peroneal and posterior tibial venous segments show no evidence of deep venous thrombosis. There is no Olmedo's cyst. US/US venous duplex LE LT IMPRESSION: No evidence of deep venous thrombosis involving the left lower extremity. Electronically signed by: Hamlet Sharpe MD 11/02/2024 02:17 PM EDT
== END 2024-11-02 13:40 | disposition home or self-care (01) ==
LOC: HO.US 13:39
PROVIDERS: PCP Internal Medicine; Visit Provider Internal Medicine
DX: R60.0 Localized edema (principal); Z13.1 Encounter for screening for diabetes mellitus
CPT/HCPCS: 83036; 93971; 99212

== ENCOUNTER → 2024-11-02 13:42 | Outpatient (BNV) | payer MEDICARE, SELFPAY | PROVIDERS: PCP Internal Medicine; Visit Provider Radiology Diagnostic Radiology | DX: R22.42 Localized swelling, mass and lump, left lower limb (principal) | CPT/HCPCS: 93971 ==

== ENCOUNTER 2024-11-03 13:38 | Outpatient (REF) | payer MEDICARE, SELFPAY ==
--- NOTE | ~2024-11-03 | XR_ITS ---
EXAMINATION: XR CHEST 2 VIEWS HISTORY: M79.89 - Other specified soft tissue disorders COMPARISON: Comparison is made with the prior examination dated 09/02/2018. FINDINGS: PA and lateral views of the chest are submitted. The lungs are hyperinflated, consistent with COPD. The lungs are clear. There is no pleural effusion, pneumothorax, or pulmonary vascular congestion. The heart is normal in size. There is degenerative disc disease of the spine. There are old healed left rib fractures. XR/XR chest 2V IMPRESSION: COPD. No acute cardiopulmonary abnormality. Electronically signed by: Tommie Brown MD 11/04/2024 03:42 PM EDT
[2024-11-03 14:03] LABS: MANUAL DIFF FLAG NO
[2024-11-03 14:46] LABS: Basophils Absolute Auto 0.1 X10*3/uL (0.0-0.2); Basophils Percent Auto 0.4 % (0-2); Eosinophils Absolute Auto 0.5 X10*3/uL (0.0-0.4); Eosinophils Percent Auto 3.3 % (0-4); Hematocrit 31.9 % (42.0-52.0); Hemoglobin 10.4 g/dl (14.0-18.0); Imm Gran Abs Auto 0.31 X10*3/uL (0.00-0.03); Imm Gran Pct Auto 2.1 % (0.0-0.4); Immature Retic Fraction 37.5 % (2.3-13.4); Lymphocytes Absolute Auto 1.5 X10*3/uL (1.2-4.9); Lymphocytes Percent Auto 9.9 % (20-40); Mean Corpuscular HGB Conc 32.6 g/dl (31.0-36.0); Mean Corpuscular Volume 85.8 fL (80.0-98.0); Mean Platelet Volume 9.6 fL (9.4-12.4); Monocytes Absolute Auto 1.3 X10*3/uL (0.1-1.2); Monocytes Percent Auto 8.8 % (2-11); Neutrophils Absolute Auto 11.3 x10*3/uL (2.0-8.3); Neutrophils Percent Auto 75.5 % (45-73); Platelet Count 399 X10*3/uL (160-400); Red Blood Count 3.72 X10*6/uL (4.60-5.80); Red Cell Distribution Width 13.2 % (11.0-16.0); Reticulocyte Percent 4.2 % (0.5-1.8); Reticulocytes Absolute 0.156 X10*6/uL (0.026-0.095)
[2024-11-03 15:14] LABS: D Dimer High Sensitivity 875 NG/ML
[2024-11-03 15:23] LABS: B Type Natriuretic Peptide 13 pg/mL (<100)
[2024-11-03 15:28] LABS: Alanine Aminotransferase 24 U/L (0-40); Albumin Level 3.6 g/dL (3.5-5.0); Alkaline Phosphatase 69 U/L (39-117); Anion Gap 15 (12-20); Aspartate Amino Transferase 29 U/L (5-37); Bilirubin Total 0.7 mg/dL (0.0-1.0); Blood Urea Nitrogen 19 mg/dL (9-16); Calcium 9.1 mg/dL (8.4-10.2); Carbon Dioxide 26 mmol/L (22-29); Chloride 102 mmol/L (96-108); Estimated Glomerular Filt Rate > 60; Glucose Random 315 mg/dL (60-115); Iron 34 mcg/dL (45-160); Percent Iron Saturation 17 % (15-50); Potassium 4.6 mmol/L (3.3-5.1); Sodium 138 mmol/L (135-145); Total Iron Binding Capacity 202 mcg/dL (228-428); Total Protein 6.2 g/dL (6.5-8.0); Unsaturated Iron Binding 168 ug/dL
[2024-11-03 15:41] LABS: Ferritin 228 ng/mL (20-250)
[2024-11-03 15:52] LABS: Folate 11.5 ng/mL (> or = 4.0); Vitamin B12 760 pg/mL (200-900)
--- OUTSIDE RECORDS SUMMARY | 2024-11-03 15:59 | XMS_ITS ---
Author Organization [facility] Address [address] [place] [address] Care Team Providers Care Test Evaluator Name Role Phone Kevin Frey MD Primary Care Provider Unavaila Marie Berry [phone] REASON FOR VISIT soon sooner Encounters Encounter Location Date Provider Diagnosis [address] [address] 04/21/2024 Marie Norton Plan Of Treatment Next Appt Details Provider Name:Marie Varela Errol , 12/26/2024 08:00:00 AM, [address] [place] [address], [address], Progress Notes * TATIANA YayoDOB:1955 ([age] yo M)Acc No.[id number]:04/21/2024 Progress Note Patient:?Yayo SIMPSON Provider:?Marie Norton DPM :1955???Age:68 Y???Sex:Male Artie e:04/21/2024 Address:[address] [place], [place] [phone] Pcp:Kevin Frey MD Subjective: * Chief Complaints: [...] Norton DPM Date:?2023 Generated for Raquel floyd/Dawood/Letty on:?11/03/2024 03:59 PM EDT
--- OUTSIDE RECORDS SUMMARY | 2024-11-03 16:00 | XMS_ITS ---
Author Organization [facility] Address [address] [place] [address] Care Team Providers Care Aerial Gunner Name Role Phone Kevin Frey MD Primary Care Provider Unavaila ble Black, Marie Unavailable [phone] Allergies No Known Allergies REASON FOR VISIT [...] Ordered Date Performed Result Body Sit e 97825-ZZDB SKIN LESIONS, OVER 4 2024 N/A Q2746-KXWHGURF DYSTROPHIC NAILS ANY # 2024 N/A Encounters Encounter Location Date Provider Diagnosis [facility] [address] [address] 2024 Marie Norton Type 2 diabetes mellitus with diabetic polyneuropathy E11.42 Assessments Encounter Date Diagnosis (ICD Code) Assessment Notes Treatment Notes Treatment Clinical Notes Section Notes 2024 Type 2 diabetes mellitus with diabetic polyneuropathy (ICD-10 - E11.42) Plan Of Treatment Pending Test Test Name Order Date 04529-WKRD SKIN LESIONS, OVER 4 09/20/19 25 B3009-[id number] DYSTROPHIC NAILS ANY # Next Appt Details Follow Up: prn, Reason: Provider Name:Marie Norton , 12/26/2024 08:00:00 AM, [address] [place] [address], [address], Procedure Notes * Category Sub-Category Detail Notes [...] instrumentation by the physician of record - 04146 Nail Reduction Nail Reduction (-27) Trimming o [...] * Yayo SIMPSONDOB:1955 ([age] yo M)Acc No.[id number]:2024 Progress Note Patient:?Yayo SIMPSON Provider:?Marie Norton DPM :1955???Age:69 Y???Sex:Male Artie e:2024 Address:[address] [place], [place] [id number] Pcp:Kevin Frey MD Subjective: * Chief Complaints: [...] no. ?Exercise: no. ?Marital status: . 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 * Medications:?TakingTresiba F reeStyle System Kit Enalapril [...] instrumentation by the physician of record - 59827.?Nail Reduction:?Nail Reduction?(-27) Trimming of all dystrophic nails [...] or bed tissue - G0127.? * Procedure Codes:?46763 TRIM SKIN LESIONS, OVER 4, Modifiers: XS G0127 TRIMMING DYSTROPHIC NAILS ANY #, Modifiers: XS * Preventive Medicine:? ??Screening/Special Tests:?Fall Risk?Screening:?No falls in the past year ?FALLS: Screening for Future Fall Risk?Have you had any falls with injury in the past year??No * Follow Up:?prn * Images: * Sign off status: Completed true * Provider:?Marie Norton DPM Date:?2024 Generated for Raquel floyd/Dawood/Letty on:?11/03/2024 03:59 PM EDT History and Physical Notes * HPI [...]
--- OUTSIDE RECORDS SUMMARY | 2024-11-03 16:00 | XMS_ITS | Patient Health Record ---
[facility] Address [address] [place] [address] Care Team Providers Care Training And Quality Manager Name Role Phone Kevin Frey MD Primary Care Provider Unavaila ble Black, Marie Unavailable [phone] Allergies No Known Allergies Results Component Value [...] Problem Acquired hammer toe of right foot (1523320932135324 ) Other hammer toe(s) (acquired), right foot (M20.41) Active confirmed Problem Acquired hammer toe of left foot (6878275128653122 ) Other hammer toe(s) (acquired), left foot (M20.42) Active confirmed Problem Non-pressure ulcer lower limb (720104848) Non-pressure chronic ulcer of other part of left foot limited to breakdown of skin (L97.521) Active confirmed Problem Polyneuropathy due to type 2 diabetes mellitus (193426854) Type 2 diabetes mellitus with diabetic polyneuropathy (E11.42) Active confirmed Problem Localized, primary osteoarthritis of the ankle and/or foot (668297757) Arthritis of joint of lesser toe, left (M19.072) Active confirmed Problem Localized, primary osteoarthritis of the ankle and/or foot (726724700) Arthritis of joint of lesser toe, right (M19.071) Active confirmed Vital Signs Blood pressure diastolic 82 mm Hg 2024 Height 5ft7in in 2024 Blood pressure systolic 120 mm Hg 2024 Weight 215 lbs 2024 BMI 33.67 kg/m2 2024 Procedures Procedure Date Ordered Date Performed Result Body Sit e 15753-CYSX SKIN LESIONS, OVER 4 12/10/2023 N/A O2136-DSOQVZUO DYSTROPHIC NAILS ANY # 12/10/2023 N/A 78670-QWVY SKIN LESIONS, OVER 4 03/17/2024 N/A M4787-ZKLYGFFM DYSTROPHIC NAILS ANY # 03/17/2024 N/A 35396-NYTR SKIN LESIONS, OVER 4 06/20/2024 N/A M4166-XNWTDVOD DYSTROPHIC NAILS ANY # 06/20/2024 N/A 45556-GQZV SKIN LESIONS, OVER 4 2024 N/A S9812-WTBBQYEY DYSTROPHIC NAILS ANY # 2024 N/A Encounters Encounter [facility] Date [facility] [address] [facility] Marie Black [address] [address] 12/10/2023 Marie Black Type 2 diabetes mellitus with diabetic polyneuropathy E11.[facility] [address] 03/17/2024 Marie Black Type 2 diabetes mellitus with diabetic polyneuropathy E11.[facility] [address] 06/20/2024 Marie Black Type 2 diabetes mellitus with diabetic polyneuropathy E11.[address] [address] 2024 Marie Black Type 2 diabetes mellitus [...] Treatment Pending Test Test Name Order Date 54925- Debride <25 sq cm 10/30/2016 93281-EETW SKIN LESIONS, OVER 4 08/27/19 18 39459-NUSA SKIN LESIONS, OVER 4 11/27/19 18 48557-NBLD SKIN LESIONS, OVER 4 02/26/20 18 90077-MPGT SKIN LESIONS, OVER 4 05/27/20 18 48436-MRFD SKIN LESIONS, OVER 4 08/26/19 19 30637-DQKS SKIN LESIONS, OVER 4 11/26/19 19 65986-KVGO SKIN LESIONS, OVER 4 02/25/20 19 69145-AQHP SKIN LESIONS, OVER 4 06/02/20 19 22183-FZXO SKIN LESIONS, OVER 4 08/03/19 20 10151-VUTZ SKIN LESIONS, OVER 4 09/15/19 20 86073-QTWP SKIN LESIONS, OVER 4 12/08/19 20 50860-BWIJ SKIN LESIONS, OVER 4 01/26/20 20 38741-LPXR SKIN LESIONS, OVER 4 03/15/20 20 67832-XQXE SKIN LESIONS, OVER 4 04/26/20 20 72757-SGPH SKIN LESIONS, OVER 4 06/14/20 20 90458-LDUL SKIN LESIONS, OVER 4 07/19/19 21 20273-ASQU SKIN LESIONS, OVER 4 09/06/19 21 72106-XVKT SKIN LESIONS, OVER 4 10/19/19 21 58084-JFZM SKIN LESIONS, OVER 4 11/27/19 50917-BUBP SKIN LESIONS, OVER 4 02/22/20 65052-YDHU SKIN LESIONS, OVER 4 05/20/20 60141-HBST SKIN LESIONS, OVER 4 08/05/19 82055-FUAU SKIN LESIONS, OVER 4 09/24/19 09097-ULVK SKIN LESIONS, OVER 4 11/26/19 59821-PTAQ SKIN LESIONS, OVER 4 02/11/20 73694-RIAI SKIN LESIONS, OVER 4 05/08/20 22 45650-QHAK SKIN LESIONS, OVER 4 07/31/19 68435-AJPO SKIN LESIONS, OVER 4 10/10/19 23 05189-KQCI SKIN LESIONS, OVER 4 12/19/19 03287-BGKI SKIN LESIONS, OVER 4 02/20/20 24280-CQQY SKIN LESIONS, OVER 4 04/30/20 62223-JPZU SKIN LESIONS, OVER 4 07/23/19 24 80973-ARCU SKIN LESIONS, OVER 4 09/24/19 49566-NGAW SKIN LESIONS, OVER 4 12/10/19 86223-KJXY SKIN LESIONS, OVER 4 03/17/20 75638-AYWE SKIN LESIONS, OVER 4 06/20/20 03121-VRUB SKIN LESIONS, OVER 4 09/20/19 25 06286-ELAK SKIN LESIONS, 2 TO 4 10/31/19 04236-BIVM SKIN LESIONS, 2 TO 4 02/27/20 34913-XIWQ SKIN LESIONS, 2 TO 4 05/28/20 17 97298-IPFY SKIN LESION 07/31/2016 43226-JLSY NAIL(S) 07/31/2016 43330-EJKP NAIL(S) 10/30/2016 51065-XUNQ NAIL(S) 02/26/2017 71435-WNMS NAIL(S) 05/28/2017 54134-TJCS NAIL(S) 08/27/2017 74336-NCTW NAIL(S) 08/26/2018 76312-OKRL NAIL(S) 05/27/2018 07456-YPFI NAIL(S) 02/25/2018 08294-APPD NAIL(S) 11/26/2017 23077-GOSH NAIL(S) 03/15/2020 43580-SSYP NAIL(S) 01/26/2020 65838-OYRG NAIL(S) 12/08/2019 11486-BPCG NAIL(S) 09/15/2019 48237-TXXR NAIL(S) 08/03/2019 52104-DZPD NAIL(S) 06/02/2019 43796-TZVN NAIL(S) 02/24/2019 98398-XYVL NAIL(S) 11/25/2018 17350-MOSV NAIL(S) 07/31/2022 81856-WGSP NAIL(S) 05/08/2022 73380-BUIH NAIL(S) 02/10/2022 91297-GJNK NAIL(S) 11/25/2021 19181-ZYVA NAIL(S) 09/23/2021 55126-NRTH NAIL(S) 08/05/2021 08219-FZNO NAIL(S) 05/20/2021 38606-PPND NAIL(S) 02/21/2021 39278-WWRQ NAIL(S) 11/26/2020 28464-JSBN NAIL(S) 10/18/2020 17498-HTSZ NAIL(S) 09/06/2020 43681-IBAI NAIL(S) 07/19/2020 10805-PPAK NAIL(S) 06/14/2020 73241-ZIVP NAIL(S) 04/26/2020 A0857-QARZVZMB DYSTROPHIC NAILS ANY # U4135-AVOSDNKQ DYSTROPHIC NAILS ANY # F6055-YIRKOWTZ DYSTROPHIC NAILS ANY # Y3889-KOZIPFYH DYSTROPHIC NAILS ANY # U7482-MBDAONID DYSTROPHIC NAILS ANY # M3871-RQCWDDPE DYSTROPHIC NAILS ANY # P5749-ADZFUUDR DYSTROPHIC NAILS ANY # Z0398-SQJLGPOU DYSTROPHIC NAILS ANY # R6223-XFPOMHLD DYSTROPHIC NAILS ANY # N5422-RZAGYURV DYSTROPHIC NAILS ANY # Next Appt Details Provider Name:Marie Norton , 12/26/2024 08:00:00 AM, [address] [place], [address], Insurance Providers Payer Name Payer Address Payer Phone Subscriber Number Group Number Insured Name Patient Relationship to Insured Coverage Start Date Coverage End Date Medicare [facility] [address] [place] [address] [id number] Yayo Simpson Self - patient is the insured AARP Secondary to Medicare [address] [place] [address] [id number] Yayo Simpson Self - patient is the [...]
--- OUTSIDE RECORDS SUMMARY | 2024-11-03 16:00 | XMS_ITS ---
[facility] Organization [facility] Address [address] [facility] [place] [address] Care Team Providers Care Glass Etcher Helper Name Role Phone Kevin Frey MD Primary Care Provider Unavaila ble Black, Marie Unavailable [phone] Allergies No Known Allergies REASON FOR VISIT [...] Ordered Date Performed Result Body Sit e 05919-EJUC SKIN LESIONS, OVER 4 06/20/2024 N/A S7768-LGOTODDA DYSTROPHIC NAILS ANY # 06/20/2024 N/A Encounters Encounter Location Date Provider Diagnosis [facility] [address] [address] 06/20/2024 Marie Norton Type 2 diabetes mellitus with diabetic polyneuropathy E11.42 Assessments Encounter Date Diagnosis (ICD Code) Assessment Notes Treatment Notes Treatment Clinical Notes Section Notes 06/20/2024 Type 2 diabetes mellitus with diabetic polyneuropathy (ICD-10 - E11.42) Plan Of Treatment Pending Test Test Name Order Date 14982-IYEF SKIN LESIONS, OVER 4 06/20/20 24 E4274-VFBFGOXY DYSTROPHIC NAILS ANY # Next Appt Details Follow Up: prn, Reason: Provider Name:Marie Norton , 12/26/2024 08:00:00 AM, [address] [place] [address], [address], Procedure Notes * Category Sub-Category Detail Notes [...] tissue nippers, and/or power dremel instrumentation - 56103 Nail Reduction Nail Reduction (-27) Trimming o [...] * Yayo SIMPSONDOB:1955 ([age] yo M)Acc No.[id number]:06/20/2024 Progress Note Patient:?Yayo SIMPSON Provider:?Marie Norton DPM :1955???Age:68 Y???Sex:Male Artie e:06/20/2024 Address:[address] [place], [place] [id number] Pcp:Kevin Frey MD Subjective: * Chief Complaints: [...] no. ?Exercise: no. ?Marital status: . 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 * Medications:?TakingTresiba F reeStyle System Kit [...] tissue nippers, and/or power dremel instrumentation - 13710.?Nail Reduction:?Nail Reduction?(-27) Trimming of all dystrophic nails [...] or bed tissue - G0127.? * Procedure Codes:?58070 TRIM SKIN LESIONS, OVER 4, Modifiers: XS [...]
== END 2024-11-03 13:39 | disposition home or self-care (01) ==
LOC: HO.XRAY 13:38
PROVIDERS: PCP Internal Medicine; Visit Provider Internal Medicine
DX: M79.89 Other specified soft tissue disorders (principal); E11.9 Type 2 diabetes mellitus without complications; I10 Essential (primary) hypertension
CPT/HCPCS: 36415; 71046; 80053; 82607; 82728; 82746; 83540; 83880; 85025; 85045; 85379

== ENCOUNTER → 2024-11-03 13:46 | Outpatient (BNV) | payer MEDICARE, SELFPAY | PROVIDERS: PCP Internal Medicine; Visit Provider Radiology Diagnostic Radiology | DX: J44.9 Chronic obstructive pulmonary disease, unspecified (principal) | CPT/HCPCS: 71046 ==

== ENCOUNTER 2025-02-07 10:26 | Outpatient (REF) | payer MEDICARE, SELFPAY ==
[2025-02-07 10:41] LABS: MANUAL DIFF FLAG NO
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
--- OUTSIDE RECORDS SUMMARY | 2025-02-07 11:26 | XMS_ITS | Patient Health Record ---
[facility] Address [address] [place] [address] Care Team Providers Care Liaison Planner Name Role Phone Mariaa Youngblood Primary Care Provider Unavailsophia e Black, Marie Unavailable [phone] Allergies No Known Allergies Results Component Value Reference Range Notes HEMOGLOBIN A1C (GLYCOHEMOGLO BIN) Reviewed date:06/20/2024 08:35:17 AM Interpretation: Performing Lab: Notes/Report: HEMOGLOBIN A1C % (HH) 7.3 Reason For Referral No Information Medications Medication SIG (Take, Route, Frequency, Duration) Notes Start Date End Date Status FreeStyle System Not -Taking metFORMIN HCl 1000 MG 1 tablet with meal s Orally Twice a day Active Lyumjev 100 UNIT/ML INJECT 5 TO 35 UNITS UNDER THE SKIN BEFORE MEALS AND SNACKS 5 TIMES DAILY DIRECTED Injection; Duration: 27 Active Lovastatin Not-Takin g Atorvastatin Calcium Active NovoLOG 100 UNIT/ML 15 to 25 unit Subcutaneous daily Not-Taking Basaglar KwikPen 100 UNIT/ML as directed Subcutaneous Not -Taking Extra Depth Orthopedic Shoes (1 Pair) with Customized Heat Molded Multidensity Innersoles (3 Pair) as directed Dx: NIDDM/Polyneuropathy (E11.42), Hammertoe Foot Deformity (M20.41,M20.42), Preulcerative Skin Lesion(s) (L85.1 09/23/2021 Not-Taking Ammonium Lactate 12 % 1 application Exte rnally Twice a day; Duration: 30 days Not-Taking Enalapril Maleate Ac tive Fiasp 100 UNIT/ML Subcutaneous Not-Taking Tresiba Active Tresiba FlexTouch No t-Taking Sildenafil Citrate N ot-Taking HumaLOG 100 UNIT/ML as directed Subcutaneous Not-Taking Immunizations Vaccine Route Administration Date Status Comme nts Influenza Unknown 03/24/2016 Administered Influenza Unknown 05/12/2017 Administered Influenza Unknown 05/13/2018 Administered Influenza Unknown 04/14/2019 Administered Influenza Unknown 04/13/2020 Administered Influenza Unknown 05/02/2021 Administered Influenza Unknown 04/16/2022 Administered Influenza Unknown 05/13/2023 Administered Influenza Unknown 05/13/2024 Administered Pneumococcal Unknown 07/31/2016 Refused COVID-19 Pfizer BioNTech Vaccine Unknown 05/02/2021 Administered First Dose:09/24/2020 Second Dose: 10/31/2020 Social History Tobacco Use: Social History Observation [...] Problem Acquired hammer toe of right foot (5893044850281531 ) Other hammer toe(s) (acquired), right foot (M20.41) Active confirmed Problem Acquired hammer toe of left foot (8420494925760956 ) Other hammer toe(s) (acquired), left foot (M20.42) Active confirmed Problem Polyneuropathy due to type 2 diabetes mellitus (085692415) Type 2 diabetes mellitus with diabetic polyneuropathy (E11.42) Active confirmed Vital Signs Blood pressure diastolic 82 mm Hg 12/26/2024 Height 5ft7in in 12/26/2024 Blood pressure systolic 120 mm Hg 12/26/2024 Weight 215 lbs 12/26/2024 BMI 33.67 kg/m2 12/26/2024 Procedures Procedure Date Ordered Date Performed Result Body Sit e 67605-LSCT SKIN LESIONS, OVER 4 03/17/2024 N/A Y7637-DYQLJVET DYSTROPHIC NAILS ANY # 03/17/2024 N/A 09939-BYWO SKIN LESIONS, OVER 4 06/20/2024 N/A J1757-UFORAILK DYSTROPHIC NAILS ANY # 06/20/2024 N/A 97800-EYXL SKIN LESIONS, OVER 4 2024 N/A C7229-NICRNVCK DYSTROPHIC NAILS ANY # 2024 N/A 12016-VBXL SKIN LESIONS, OVER 4 12/26/2024 N/A H0633-SHSVUABO DYSTROPHIC NAILS ANY # 12/26/2024 N/A Encounters Encounter Location Date Provider Diagnosis [address] [address] 03/17/2024 Marie Black Type 2 diabetes mellitus with diabetic polyneuropathy E11.[address] [address] 06/20/2024 Marie Black Type 2 diabetes mellitus with diabetic polyneuropathy E11.[address] [address] 2024 Marie Black Type 2 diabetes mellitus with diabetic polyneuropathy E11.[address] [address] 12/26/2024 Marie Black Type 2 diabetes mellitus with diabetic polyneuropathy E11.42 ; Other hammer toe(s) (acquired), right foot M20.41 and Other hammer toe(s) (acquired), left foot M20.[address] [address] 02/08/2024 Marie Black Assessments Encounter Date Diagnosis (ICD Code) Assessment Notes Treatment Notes Treatment Clinical Notes Section Notes 03/17/2024 Type 2 diabetes mellitus with diabetic polyneuropathy (ICD-10 - E11.42) 06/20/2024 Type 2 diabetes mellitus with diabetic polyneuropathy (ICD-10 - E11.42) 2024 Type 2 diabetes mellitus with diabetic polyneuropathy (ICD-10 - E11.42) 12/26/2024 Other hammer toe(s) (acquired), right foot (ICD-10 - M20.41) 12/26/2024 Type 2 diabetes mellitus with diabetic polyneuropathy (ICD-10 - E11.42) 12/26/2024 Other hammer toe(s) (acquired), left foot (ICD-10 - M20.42) Plan Of Treatment Pending Test Test Name Order Date 31257- Debride <25 sq cm 10/30/2016 07580-MOSX SKIN LESIONS, OVER 4 08/27/19 18 07417-WKZE SKIN LESIONS, OVER 4 11/27/19 18 95528-OGYM SKIN LESIONS, OVER 4 02/26/20 18 18645-QJWK SKIN LESIONS, OVER 4 05/27/20 39212-YJFE SKIN LESIONS, OVER 4 08/26/19 99647-FMTJ SKIN LESIONS, OVER 4 11/26/19 42178-ZHLX SKIN LESIONS, OVER 4 02/25/20 21057-ZIZI SKIN LESIONS, OVER 4 06/02/20 78507-VTBO SKIN LESIONS, OVER 4 08/03/19 59036-MNJF SKIN LESIONS, OVER 4 09/15/19 11227-YRBV SKIN LESIONS, OVER 4 12/08/19 71698-LPOZ SKIN LESIONS, OVER 4 01/26/20 58938-UHUF SKIN LESIONS, OVER 4 03/15/20 79962-IEXN SKIN LESIONS, OVER 4 04/26/20 98093-PYNQ SKIN LESIONS, OVER 4 06/14/20 02473-HXSP SKIN LESIONS, OVER 4 07/19/19 33041-DSVM SKIN LESIONS, OVER 4 09/06/19 99083-CGBA SKIN LESIONS, OVER 4 10/19/19 89405-CBIB SKIN LESIONS, OVER 4 11/27/19 81970-AEMY SKIN LESIONS, OVER 4 02/22/20 88052-TYTI SKIN LESIONS, OVER 4 05/20/20 09323-SOBC SKIN LESIONS, OVER 4 08/05/19 21460-PYHL SKIN LESIONS, OVER 4 09/24/19 88917-FEKV SKIN LESIONS, OVER 4 11/26/19 09020-REZX SKIN LESIONS, OVER 4 02/11/20 43237-QWAX SKIN LESIONS, OVER 4 05/08/20 70886-MDIA SKIN LESIONS, OVER 4 07/31/19 23 91188-MXBJ SKIN LESIONS, OVER 4 10/10/19 23 95928-GNWG SKIN LESIONS, OVER 4 12/19/19 23 53590-BRFK SKIN LESIONS, OVER 4 02/20/20 23 48027-LGIE SKIN LESIONS, OVER 4 04/30/20 23 10881-TUII SKIN LESIONS, OVER 4 07/23/19 24 76143-YLCB SKIN LESIONS, OVER 4 09/24/19 00157-MFXT SKIN LESIONS, OVER 4 12/10/19 06689-OQHR SKIN LESIONS, OVER 4 03/17/20 75660-EDPM SKIN LESIONS, OVER 4 06/20/20 24 87802-QREV SKIN LESIONS, OVER 4 09/20/19 66180-JUMT SKIN LESIONS, OVER 4 12/27/19 30112-BNPL SKIN LESIONS, 2 TO 4 10/31/19 20056-HAUZ SKIN LESIONS, 2 TO 4 02/27/20 17 79037-SUMV SKIN LESIONS, 2 TO 4 05/28/20 17 77643-FGUO SKIN LESION 07/31/2016 56393-OPRT NAIL(S) 07/31/2016 48476-DYRQ NAIL(S) 10/30/2016 19634-KZAF NAIL(S) 02/26/2017 41804-SNPC NAIL(S) 05/28/2017 57084-IQGF NAIL(S) 08/27/2017 98839-FJPJ NAIL(S) 08/26/2018 96842-MCPN NAIL(S) 05/27/2018 37804-FZDB NAIL(S) 02/25/2018 20520-BKWZ NAIL(S) 11/26/2017 57798-HZXB NAIL(S) 03/15/2020 75503-KQXM NAIL(S) 01/26/2020 41074-OCNL NAIL(S) 12/08/2019 30183-WIZO NAIL(S) 09/15/2019 66980-BIVC NAIL(S) 08/03/2019 92087-TLQO NAIL(S) 06/02/2019 59903-DGXZ NAIL(S) 02/24/2019 83999-ASWL NAIL(S) 11/25/2018 92004-HSDS NAIL(S) 07/31/2022 09951-EAMC NAIL(S) 05/08/2022 52765-RBHS NAIL(S) 02/10/2022 75332-GCVT NAIL(S) 11/25/2021 41788-KASR NAIL(S) 09/23/2021 72291-XTMI NAIL(S) 08/05/2021 04614-QVQZ NAIL(S) 05/20/2021 44487-BONN NAIL(S) 02/21/2021 14485-VJVS NAIL(S) 11/26/2020 18504-CETE NAIL(S) 10/18/2020 39543-VVRC NAIL(S) 09/06/2020 84665-DYKR NAIL(S) 07/19/2020 09900-HYXO NAIL(S) 06/14/2020 55907-ADXN NAIL(S) 04/26/2020 C4917-DPDNLLGC DYSTROPHIC NAILS ANY # H3483-YVDPFXSY DYSTROPHIC NAILS ANY # D0581-TTVWUJJJ DYSTROPHIC NAILS ANY # G5471-JIFFHFNF DYSTROPHIC NAILS ANY # P6592-VNIVRLSK DYSTROPHIC NAILS ANY # I3373-WQODIDHF DYSTROPHIC NAILS ANY # M7112-EXQGPRLN DYSTROPHIC NAILS ANY # R9764-WNYXYADU DYSTROPHIC NAILS ANY # X7532-WBHIEMKY DYSTROPHIC NAILS ANY # U9283-XICUNASI DYSTROPHIC NAILS ANY # R0154-YSVJWNMF DYSTROPHIC NAILS ANY # Next Appt Details Provider Name:Marie Norton , 03/27/2025 08:15:00 AM, [address] [place] [address], [address], Insurance Providers Payer Name Payer Address Payer Phone Subscriber Number Group Number Insured Name Patient Relationship to Insured Coverage Start Date Coverage End Date Medicare National [employer] [address] [place] [address] [id number] Yayo Simpson Self - patient is the insured A[employer] Secondary to Medicare [address] [place] [id number] Yayo Simpson Self - patient is the insured Medical (General) History Medical History History ICD Code Back,Hip,and Knee pain Broken bones type II diabetes Diverticulosis Hypertension Sciatica Measles Mumps Chicken pox osteoarthritis- right hip Arthritis of joint of lesser toe, left M 19.072 Arthritis of joint of lesser toe, right M19.071 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
[2025-02-07 11:32] LABS: Hematocrit 44.4 % (42.0-52.0); Hemoglobin 14.5 g/dl (14.0-18.0); Imm Gran Abs Auto 0.04 X10*3/uL (0.00-0.03); Imm Gran Pct Auto 0.4 % (0.0-0.4); Lymphocytes Absolute Auto 2.3 X10*3/uL (1.2-4.9); Mean Corpuscular HGB Conc 32.7 g/dl (31.0-36.0); Mean Corpuscular Hemoglobin 26.7 pg (27.0-33.0); Mean Corpuscular Volume 81.8 fL (80.0-98.0); NRBC Abs Auto 0.000 X10*3/uL (0.0-0.012); NRBC Pct Auto 0.0 /100WBC (0.0-0.2); Platelet Count 229 X10*3/uL (160-400); Red Blood Count 5.43 X10*6/uL (4.60-5.80); Reticulocytes Absolute 0.067 X10*6/uL (0.026-0.095); White Blood Count 9.8 X10*3/uL (4.8-10.8)
[2025-02-07 11:41] LABS: Hemoglobin A1C 226.7641 umol/L; Total Hemoglobin (HGBA1C) 3721.5535 umol/L
[2025-02-07 12:12] LABS: Alanine Aminotransferase 42 U/L (0-40); Albumin Level 4.7 g/dL (3.5-5.0); Alkaline Phosphatase 79 U/L (39-117); Anion Gap 14 (12-20); Aspartate Amino Transferase 30 U/L (5-37); Blood Urea Nitrogen 15 mg/dL (9-16); Calcium 9.4 mg/dL (8.4-10.2); Carbon Dioxide 28 mmol/L (22-29); Chloride 103 mmol/L (96-108); Cholesterol 196 mg/dL (<200); Estimated Glomerular Filt Rate > 60; HDL Cholesterol 46 mg/dL (>40); Iron 77 mcg/dL (45-160); Percent Iron Saturation 26 % (15-50); Potassium 4.4 mmol/L (3.3-5.1); Sodium 141 mmol/L (135-145); Total Iron Binding Capacity 293 mcg/dL (228-428); Total Protein 6.9 g/dL (6.5-8.0); Triglycerides 277 mg/dL (<150); Unsaturated Iron Binding 216 ug/dL
[2025-02-07 12:27] LABS: Microalbum/Creatinine Ratio Ur 29.9 ug/mg cr (<30)
[2025-02-07 12:32] LABS: Ferritin 36 ng/mL (20-250); Free T4 (Free Thyroxine) 0.91 ng/dL (0.71-1.85); Thyroid Stimulating Hormone 1.84 uIU/mL (0.32-4.0)
[2025-02-07 12:37] LABS: Folate 13.5 ng/mL (> or = 4.0); Vitamin B12 638 pg/mL (200-900)
== END 2025-02-07 10:27 | disposition home or self-care (01) ==
LOC: HO.LAB 10:26
PROVIDERS: Visit Provider Internal Medicine
DX: E11.65 Type 2 diabetes mellitus with hyperglycemia (principal); E78.00 Pure hypercholesterolemia, unspecified
CPT/HCPCS: 36415; 80053; 80061; 82043; 82570; 82607; 82728; 82746; 83036; 83540; 84153; 84439; 84443; 85025; 85045

== ENCOUNTER 2025-02-10 14:57 | Outpatient (AMB) | payer MEDICARE, SELFPAY ==
[2025-02-10 14:59] VITALS: BP 128/80; PULSE 67; O2SAT 98; BMI 32.3
--- NOTE | 2025-02-10 14:59 | MHC.PC.OV ---
Vital Signs 02/10/25 14:59 Height 5 ft 8 in Weight 212 lb 8 oz BMI 32.3 BP 128/80 Blood Pressure Location Lt brachial Position Sitting Pulse 67 Pulse Source Pulse Oximeter Pulse Oximetry (%) 98 Oxygen Delivery Method Room Air Intake Visit Reasons: Annual exam [employer] Former Brace End Required: No Accompanied by: Self / Same As Patient Allergies No Known Allergies Allergy (Verified 02/10/25 15:00) Medication List - Last Reconciled 02/10/25 by Mariaa Youngblood MD atorvastatin 20 mg PO BEDTIME 90 days blood-glucose sensor (Dexcom G6 Sensor device) As directed every 10 days blood-glucose transmitter (Dexcom G6 Transmitter device) As directed one every 3 months blood-glucose,sanitarian inspector,cont (Dexcom G6 Driver'S Education Instructor) As directed enalapril maleate 10 mg PO DAILY 90 days insulin degludec (Tresiba FlexTouch U-200 insulin) 28 units (0.14 mL) subcut BEDTIME insulin lispro-aabc (Lyumjev U-100 Insulin) 3-15 units before meals and snacks subcut up to five times a day; 90 days MDD 48 units insulin syringe-needle U-100 5 times a day metformin ER 1,000 mg (2 x 500 mg) PO BID 90 days pen needle, diabetic As directed Use 1x daily tadalafil (Cialis) 20 mg PO DAILY PRN Tobacco use date assessed: 02/10/25 Fall risk assessment: No Falls in past year Last assessed Fall Risk: 02/10/25 Dental Screening Dental Screen Date: 02/10/25 Did you have a dental visit in the last 12 months?: Yes Did you have a dental problem in the last 6 months where you did not have access to dental care?: No Was dental information given to patient?: Patient has dentist HPI Annual exam HPI Details nausea, occ sigh, no cough, rectal bleeding - seeing Dr. 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 Surgical History History of YAG laser iridotomy of left eye History of right hip replacement Hx of colonoscopy Hx of colonoscopy History of uvulectomy History of removal of cyst History of tonsillectomy Family History Father Prostate cancer Mother Hypertension Hypercholesterolemia Maternal Grandmother Alzheimers disease Maternal Grandfather Heart disease Social History (Updated 02/10/25 @ 16:02 by Mariaa Youngblood MD) Housing: House Alcohol intake: current Alcohol intake frequency: 0-2 drinks per day Alcohol type: wine Comment: QD /2 bottle wine Patient Tobacco Use Status: Never used Tobacco Tobacco use type: Cigarette Years Smoked: smoke marijuana e-Cigarette/Vaping Use: Never Used Second Hand Smoke Exposure: No service: No Current occupational status: employed 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 1. Little interest or pleasure in doing things: not at all 2. Feeling down, depressed, or hopeless: several days 3. Trouble falling or staying asleep, or sleeping too much: several days 4. Feeling tired or having little energy: nearly every day 5. Poor appetite or overeating: several days 6. Feeling bad about yourself - or that you are a failure or have let yourself or your family down: not at all 7. Trouble concentrating on things, such as reading the newspaper or watching television: not at all 8. Moving or speaking so slowly that other people could have noticed. Or the opposite - being so fidgety or restless that you have been moving around a lot more than usual: not at all 9. Thoughts that you would be better off or of hurting yourself in some way: not at all Total score: 6 Source: Developed by Drs. Tommie Phillips, Edilia Ortiz, Domingo Marquez and colleagues, with an educational vasiliy from [employer]. Thrive Questionnaire Date Thrive assessed: 02/10/25 I am a: Patient What is your living situation today?: I have a steady place to live Within the past 12 months, did the food you bought not last and you didn't have the money to get more?: Never true Within the past 12 months, did you worry whether your food would run out before you got money to buy more?: Never true Do you have trouble paying for medicines?: No Do you have trouble getting transportation to medical appointments?: No Do you have trouble paying your heating and electricity bill?: No Do you have trouble taking care of your child, family member or friend?: No Do you have trouble with day-to-day activities such as bathing, preparing meals, shopping, managing finances, etc.?: No Are you currently unemployed and looking for a job?: No Are you interested in more education?: No Please select the resources that you would like help with: None Currently or been in a relationship where the following occur: No concerns reported THRIVE Score: 0 AUDIT C Alcohol Use Questionnaire (AUDIT-C) 1. How often do you have a drink containing alcohol?: 4 or more times a week 2. How many drinks containing alcohol do you have on a typical day when you are drinking?: 3 or 4 3. How often do you have six or more drinks on one occasion?: Never Total Score: 5 RHINA-7 AMB Questionnaire RHINA-7 Date RHINA - 7 assessed: 02/10/25 Feeling nervous, anxious, or on edge: 0 = Not at all Not being able to stop or control worryin = Not at all Worrying too much about different things: 1 = Several days Trouble relaxin = Not at all Being so restless that it is hard to sit still: 0 = Not at all Becoming easily annoyed or irritable: 1 = Several days Feeling afraid as if something awful might happen: 0 = Not at all Total RHINA-7 score (0-4 normal; 5-9 mild; 10-14 moderate; 15-21 severe): 2 Source: Developed by Drs. Tommie Phillips, Edilia Ortiz, Domingo Marquez and colleagues, with an educational vasiliy from [employer]. Review of Systems Const Denies poor appetite and Denies weakness Eyes Denies no additional complaints ENT Reports Normal hearing present, Denies dizziness, Denies nasal congestion, Denies tinnitus and Denies sore throat Card Denies chest pain, Denies syncope, Denies rapid heart rate and Denies dyspnea Resp Denies cough and Denies dyspnea GI Denies change in stool character, Reports constipation, Denies diarrhea, Denies nausea and Denies vomiting Denies dysuria and Denies urinary frequency Neuro Reports Normal hearing present, Denies confusion, Denies dizziness, Denies syncope and Denies weakness Psych Denies confusion Physical exam (Primary Care) Vital Signs: Last Vital Signs Pulse 67 02/10/25 14:59 BP 128/80 02/10/25 14:59 Pulse Ox 98 02/10/25 14:59 Oxygen Delivery Method Room Air 02/10/25 14:59 BMI result Body Mass Index 32.3 Tobacco/Smoking Status: Tobacco use Status Tobacco use date assessed 02/10/25 02/10/25 15:02 Patient Tobacco Use Status Never used Tobacco 02/10/25 15:02 Tobacco use type Cigarette 02/10/25 15:02 e-Cigarette/Vaping Use Never Used 02/10/25 15:02 PHQ-9: PHQ-9 Score PHQ-9: Total score 6 02/10/25 15:45 Thrive Assessment: Date of Thrive Assessment Date Thrive assessed 02/10/25 02/10/25 15:02 Currently or been in a relationship where the following occur: No concerns reported Const General: alert and awake; No confusion Orientation/consciousness: No confusion HENMT Head: Yes normocephalic Ears: external ears normal and TM's normal bilaterally Face and sinus: Yes normal facial exam Mouth: moist mucous membranes Throat: Yes tonsils normal Eyes Conjunctivae: conjunctivae normal Pupils: Equal, round and reactive pupils present and Pupil accommodation reflex normal Direct Ophthalmoscopy: normal light reflex Neck Neck: No lymphadenopathy Thyroid: Thyroid normal Chest Chest palpation & inspection: normal inspection of the chest Resp Effort & Inspection: normal respiratory effort and no audible wheezes Auscultation: clear to auscultation bilaterally, no crackles, no wheezes and lung sounds not diminished Cardio Rate: regular rate Rhythm: regular rhythm Peripheral pulses: radial pulses present and dorsalis pedis present GI Other: Declined Palpation (GI): no masses Auscultation: normal bowel sounds and normoactive bowel sounds Rectal Exam - Male: Yes deferred Other: Declined Skin Other: Pinprick and pedal pulses are good Full body images:  1. 1 cm hyperpigmented elevated lesion no redness Neuro General: deep tendon reflexes 2+ bilaterally and No confusion Cranial nerves: Yes Equal, round and reactive pupils present, Yes Midline tongue present, Yes Normal hearing present and Yes Ability to bilaterally elevate shoulders present Cognition (Neuro): normal cognition Gait exam (Neuro): Normal gait present Motor exam (neuro): 5/5 motor strength present throughout Deep tendon reflexes (DTR's): Right brachioradialis reflex intensity grade: 2+, Left brachioradialis reflex intensity grade: 2+, Right patellar reflex intensity grade: 2+ and Left patellar reflex intensity grade: 2+ Extrem Other: 1+ edema bilateral lower extremity mild duskiness on the left leg noted venous ultrasound done in October negative General: Yes edema Coding Level of Care Code Est Pt Prev Care >65y(35112) Diagnoses Annual physical exam Z00.00 Type 2 diabetes mellitus with hyperglycemia E11.65 Hypertension I10 Dyslipidemia E78.5 Obesity (BMI 30-39.9) E66.9 History of left hip replacement Z96.642 LFT elevation R79.89 Mass of left lower leg R22.42 Assessment & Plan Assessment & Plan (1) Annual physical exam: Code(s): Z00.00 - Encounter for general adult medical examination without abnormal findings Category: Medical Plan: Wellness planned (2) Type 2 diabetes mellitus with hyperglycemia: Code(s): E11.65 - Type 2 diabetes mellitus with hyperglycemia Category: Medical Plan: Decrease the amount of carbohydrate intake, pasta, bread, rice and potatoes are all sugar and that is aside from all the sweet stuff, remember that fruits are good but they are Sweet also. Hemoglobin A1c goal of less than 7.0 patient on Tresiba metformin PAtient uses the dexcom and the Blood Sugars are good controlled using Insulin (3) Hypertension: Code(s): I10 - Essential (primary) hypertension Category: Medical Plan: Continue with blood pressure medication. Decrease salt intake and exercise continue with enalapril 10 mg once a day (4) Dyslipidemia: Code(s): E78.5 - Hyperlipidemia, unspecified Category: Medical Plan: Avoid fried foods, chicken skin, eggs, butter margarine, pastries and meat. Be it pork or beef they have a lot of cholesterol LDL goal of less than 100 and triglyceride of less than 150 on atorvastatin (5) Obesity (BMI 30-39.9): Code(s): E66.9 - Obesity, unspecified Category: Medical Plan: Diet and exercise (6) History of left hip replacement: Comment: 10/26/2024 PARDEEP Negrete, BRothers Code(s): Z96.642 - Presence of left artificial hip joint Category: Surgical Plan: Continue to follow-up with ortho (7) LFT elevation: Code(s): R79.89 - Other specified abnormal findings of blood chemistry Category: Medical (8) Mass of left lower leg: Code(s): R22.42 - Localized swelling, mass and lump, left lower limb Category: Medical Plan: Raised papule 1 cm over the left knee that has been increasing insize Plan History of Present Illness The patient is a 69-year-old male presenting for an annual physical examination and management of chronic conditions. The patient has a history of obesity and has recently achieved a 16-pound weight loss through dietary changes. He has been diagnosed with diabetes mellitus, hypertension, and hypercholesterolemia, and is currently on medications including Tresiba, metformin, enalapril, and atorvastatin. The patient also has obstructive sleep apnea but does not use CPAP therapy patient had the uvulopalatopharyngoplasty.. He underwent a left knee replacement in October and reports some residual swelling and discoloration in the foot, which is being monitored. Recent blood work showed an elevated hemoglobin A1c of 7.7, elevated liver function tests, and high triglycerides at 277 mg/dL. The patient denies any new surgeries or diagnoses since his last visit. The patient reports rectal bleeding and has an upcoming appointment with a university relations recruiter for further evaluation. He also experiences benign positional vertigo, nausea in the mornings, and occasional unsteadiness when changing positions. Socially, the patient consumes alcohol daily, approximately two and a half to three glasses of wine, and smokes marijuana. He denies tobacco use and reports a generally healthy diet with meals prepared at home. Health Maintenance - Vaccinations: Up to date with COVID-19, shingles, and tetanus vaccinations - Screening: Scheduled for a colonoscopy due to rectal bleeding - Lifestyle: Encouraged to maintain a healthy diet and exercise regimen Social History - Alcohol use: Consumes approximately two and a half to three glasses of wine daily - Substance use: Smokes marijuana - Diet: Primarily home-cooked meals with a focus on vegetables and natural foods Review of Systems - General: Reports weight loss of 16 pounds - Cardiovascular: Denies chest pain, reports occasional unsteadiness - Respiratory: Denies cough, reports occasional deep breaths - Gastrointestinal: Reports rectal bleeding, denies constipation - Neurological: Reports benign positional vertigo, denies dizziness - Dermatological: Reports swelling and discoloration of the foot Physical Exam General: Cooperative, healthy appearing, comfortable, no acute distress and well developed Orientation: Patient oriented x3 Limitations: No limitations Head: Normal to inspection Ears: Hearing grossly normal bilaterally Nose: Normal external nose present Face and sinus: Normal facial exam Eyes: Appearance normal, both eyes and all related structures Neck: Normal visual inspection and Yes full ROM Respiratory: Normal respiratory effort and able to speak in complete sentences. Clear to auscultation bilaterally Cardiovascular: Regular rate and rhythm. Normal S1 and S2 GI: Normal to inspection. Soft to palpation and nontender Skin: Neuro: Patient oriented x3 Extremities: , except for swelling and discoloration in the left foot post knee replacement surgery. Sensation intact. Results - Labs: Hemoglobin A1c 7.7, elevated liver function tests, triglycerides 277 mg/dL - Imaging: Scheduled ultrasound of the liver Plan The patient will continue with current medications for diabetes, hypertension, and hypercholesterolemia, including Tresiba, metformin, enalapril, and atorvastatin. A follow-up with gastroenterology is scheduled to evaluate rectal bleeding, and a colonoscopy is planned. An ultrasound of the liver will be conducted to assess elevated liver function tests, and a hepatitis profile will be obtained. The patient is advised to monitor blood glucose levels closely and consider adjustments to insulin dosing to prevent hypoglycemia. Lifestyle modifications, including dietary adjustments and exercise, are encouraged to aid in weight management and improve overall health. A dermatology referral is made to evaluate changes in skin appearance post-surgery. Patient was informed and verbally consented to the use of an ambient scribe for clinic note documentation during this visit. Discussion Notes During the visit, we discussed the management of the patient's chronic conditions, including diabetes, hypertension, and hypercholesterolemia. I emphasized the importance of monitoring blood glucose levels and adjusting insulin dosing to prevent hypoglycemia. We also talked about the need for a colonoscopy to investigate rectal bleeding and the plan to conduct an ultrasound of the liver due to elevated liver function tests. I advised the patient on lifestyle modifications, including dietary changes and exercise, to support weight management and overall health. A dermatology referral was made to assess skin changes post-surgery. The patient was informed about the importance of regular follow-ups and maintaining adherence to prescribed medications. Patient Instructions - Continue taking prescribed medications: Tresiba, metformin, enalapril, and atorvastatin. - Monitor blood glucose levels regularly and adjust insulin dosing as needed. - Follow up with gastroenterology for colonoscopy to evaluate rectal bleeding. - Schedule and complete an ultrasound of the liver and hepatitis profile. - Maintain a healthy diet and exercise regularly to support weight management. - Attend dermatology appointment to assess skin changes post-surgery. Orders: Orders Comprehensive Met. Panel Today R79.89 - Other specified abnormal findings of blood chemistry XR chest 2V Today R79.89 - Other specified abnormal findings of blood chemistry Hepatitis B,C Profile Today R79.89 - Other specified abnormal findings of blood chemistry US abdomen complete Today R79.89 - Other specified abnormal findings of blood chemistry Referrals Dermatology Referral R22.42 - Localized swelling, mass and lump, left lower limb
--- OUTSIDE RECORDS SUMMARY | 2025-02-10 15:01 | XMS_ITS | Patient Health Record ---
[facility] Address [address] [place] [address] Care Team Providers Care Hydrodynamicist Name Role Phone Mariaa Youngblood Primary Care Provider Unavailsophia e Black, Marie Unavailable [phone] Allergies No Known Allergies Results Component Value [...] Problem Status W/U Status Risk Notes Problem Other hammer toe(s) (acquired), right foot (M20.41) Active confirmed Problem Acquired hammer toe of left foot ([id number] ) Other hammer toe(s) (acquired), left foot (M20.42) Active confirmed Problem Polyneuropathy due to type 2 diabetes mellitus (581503036) Type 2 diabetes mellitus with diabetic polyneuropathy (E11.42) Active confirmed Vital Signs Blood pressure diastolic 82 mm Hg 12/26/2024 Height 5ft7in in 12/26/2024 Blood pressure systolic 120 mm Hg 12/26/2024 Weight 215 lbs 12/26/2024 BMI 33.67 kg/m2 12/26/2024 Procedures Procedure Date Ordered Date Performed Result Body Sit e 51943-TXNG SKIN LESIONS, OVER 4 03/17/2024 N/A V6055-EMLICIUM DYSTROPHIC NAILS ANY # 03/17/2024 N/A 68972-YZHT SKIN LESIONS, OVER 4 06/20/2024 N/A T2277-LCYYNQDZ DYSTROPHIC NAILS ANY # 06/20/2024 N/A 01318-QLYX SKIN LESIONS, OVER 4 2024 N/A W5127-UNHZBSGW DYSTROPHIC NAILS ANY # 2024 N/A 03217-SUXT SKIN LESIONS, OVER 4 12/26/2024 N/A T4776-JLVXZGVQ DYSTROPHIC NAILS ANY # 12/26/2024 N/A Encounters Encounter Location Date Provider Diagnosis [address] [address] 03/17/2024 Marie Black Type 2 diabetes mellitus with diabetic polyneuropathy E11.[address] [address] 06/20/2024 Marie Black Type 2 diabetes mellitus with diabetic polyneuropathy E11.[address] [address] 2024 Marie Black Type 2 diabetes mellitus with diabetic polyneuropathy E11.[address] [address] 12/26/2024 Marie Black Type 2 diabetes mellitus with diabetic polyneuropathy E11.42 ; Other hammer toe(s) (acquired), right foot M20.41 and Other hammer toe(s) (acquired), left foot M20.42 Assessments Encounter Date Diagnosis (ICD Code) Assessment [...] Treatment Pending Test Test Name Order Date 19993- Debride <25 sq cm 10/30/2016 51389-SOHG SKIN LESIONS, OVER 4 08/27/19 18 68550-IRQA SKIN LESIONS, OVER 4 11/27/19 18 52453-OMQI SKIN LESIONS, OVER 4 02/26/20 18 21417-UQJI SKIN LESIONS, OVER 4 05/27/20 18 25160-PUMA SKIN LESIONS, OVER 4 08/26/19 03382-EWAD SKIN LESIONS, OVER 4 11/26/19 27756-EOGK SKIN LESIONS, OVER 4 02/25/20 07301-HSTT SKIN LESIONS, OVER 4 06/02/20 41701-EBFZ SKIN LESIONS, OVER 4 08/03/19 43445-RITT SKIN LESIONS, OVER 4 09/15/19 81392-KXFM SKIN LESIONS, OVER 4 12/08/19 10256-ZYXF SKIN LESIONS, OVER 4 01/26/20 52626-KCCI SKIN LESIONS, OVER 4 03/15/20 89102-VOLT SKIN LESIONS, OVER 4 04/26/20 24350-TYRH SKIN LESIONS, OVER 4 06/14/20 58140-PTOR SKIN LESIONS, OVER 4 07/19/19 30068-IJYG SKIN LESIONS, OVER 4 09/06/19 20060-UPNZ SKIN LESIONS, OVER 4 10/19/19 91631-TTES SKIN LESIONS, OVER 4 11/27/19 80255-KAFA SKIN LESIONS, OVER 4 02/22/20 23575-XTUW SKIN LESIONS, OVER 4 05/20/20 34584-DSGM SKIN LESIONS, OVER 4 08/05/19 47406-NOCQ SKIN LESIONS, OVER 4 09/24/19 58101-GPCG SKIN LESIONS, OVER 4 11/26/19 98596-TAVB SKIN LESIONS, OVER 4 02/11/20 16043-HDSA SKIN LESIONS, OVER 4 05/08/20 49984-KFJK SKIN LESIONS, OVER 4 07/31/19 61859-TLAF SKIN LESIONS, OVER 4 10/10/19 06981-CTAW SKIN LESIONS, OVER 4 12/19/19 72788-DQJL SKIN LESIONS, OVER 4 02/20/20 95878-LRJR SKIN LESIONS, OVER 4 10/19/20 23 31396-DFMJ SKIN LESIONS, OVER 4 07/23/19 24 13191-UFXA SKIN LESIONS, OVER 4 09/24/19 22796-FHRF SKIN LESIONS, OVER 4 12/10/19 24 94052-YIJM SKIN LESIONS, OVER 4 03/17/20 24 72457-OEGA SKIN LESIONS, OVER 4 06/20/20 24 79161-NTPG SKIN LESIONS, OVER 4 09/20/19 25 29512-BSYE SKIN LESIONS, OVER 4 12/27/19 25 54897-LCSP SKIN LESIONS, 2 TO 4 10/31/19 17 18278-CGXC SKIN LESIONS, 2 TO 4 02/27/20 17 84015-FUEA SKIN LESIONS, 2 TO 4 05/28/20 17 83839-CVRE SKIN LESION 07/31/2016 90974-WQCH NAIL(S) 07/31/2016 98474-BFEF NAIL(S) 10/30/2016 74425-PNBX NAIL(S) 02/26/2017 28788-UNNT NAIL(S) 05/28/2017 11355-KBOG NAIL(S) 08/27/2017 86773-QUFP NAIL(S) 08/26/2018 78058-RCRC NAIL(S) 05/27/2018 88475-ZKJL NAIL(S) 02/25/2018 18093-PGGD NAIL(S) 11/26/2017 59815-IYRK NAIL(S) 03/15/2020 86855-DVFT NAIL(S) 01/26/2020 45353-VUOW NAIL(S) 12/08/2019 38803-IUBE NAIL(S) 09/15/2019 83934-XOAL NAIL(S) 08/03/2019 24349-SPMB NAIL(S) 06/02/2019 28148-LPPU NAIL(S) 02/24/2019 61439-JVTU NAIL(S) 11/25/2018 16326-SHWD NAIL(S) 07/31/2022 33813-VRZH NAIL(S) 05/08/2022 02058-RHBZ NAIL(S) 02/10/2022 77936-LGQP NAIL(S) 11/25/2021 30083-LHUD NAIL(S) 09/23/2021 52483-AVPW NAIL(S) 08/05/2021 50741-EFYX NAIL(S) 05/20/2021 28243-BAQB NAIL(S) 02/21/2021 57456-KDAB NAIL(S) 11/26/2020 64072-VENL NAIL(S) 10/18/2020 24843-RCFB NAIL(S) 09/06/2020 46606-EXKH NAIL(S) 07/19/2020 83049-LLZB NAIL(S) 06/14/2020 55290-MTOS NAIL(S) 04/26/2020 Q7616-ASYJXJMC DYSTROPHIC NAILS ANY # J8939-AXSENZWA DYSTROPHIC NAILS ANY # D5840-XWKVCVEZ DYSTROPHIC NAILS ANY # Q7533-EBWOGVRL DYSTROPHIC NAILS ANY # S1901-HMWGPTJL DYSTROPHIC NAILS ANY # S2527-BNPSOLDB DYSTROPHIC NAILS ANY # N8124-SQIIGCUD DYSTROPHIC NAILS ANY # K6261-BFCGWVPR DYSTROPHIC NAILS ANY # F9443-SGRVQXQH DYSTROPHIC NAILS ANY # S0342-IUDCPAKI DYSTROPHIC NAILS ANY # T2470-ZBNTYCVO DYSTROPHIC NAILS ANY # Next Appt Details Provider Name:Marie Norton , 03/27/2025 08:15:00 AM, [address] [place] [address], [place], [address], Insurance Providers Payer Name Payer Address Payer Phone Subscriber Number Group Number Insured Name Patient Relationship to Insured Coverage Start Date Coverage End Date Medicare [employer] [address] [place] [address] [id number] Yayo Simpson Self - patient is the insured A[employer] Secondary to Medicare [address] [place] [address] [id number] Yayo Simpson Self - patient is the [...]
== END 2025-02-10 16:30 | disposition home or self-care (01) ==
LOC: HO.HMCH 14:58
PROVIDERS: PCP Internal Medicine; Visit Provider Internal Medicine
DX: Z00.00 Encounter for general adult medical examination without abnormal findings (principal); E11.65 Type 2 diabetes mellitus with hyperglycemia; I10 Essential (primary) hypertension; E78.5 Hyperlipidemia, unspecified; Z68.32 Body mass index [BMI] 32.0-32.9, adult; E66.9 Obesity, unspecified; Z96.642 Presence of left artificial hip joint; R79.89 Other specified abnormal findings of blood chemistry; R22.42 Localized swelling, mass and lump, left lower limb

== ENCOUNTER → 2025-02-10 14:57 | Outpatient (BNVA) | payer MEDICARE, SELFPAY | PROVIDERS: PCP Internal Medicine; Visit Provider Internal Medicine | DX: Z00.00 Encounter for general adult medical examination without abnormal findings (principal); E11.65 Type 2 diabetes mellitus with hyperglycemia; E78.5 Hyperlipidemia, unspecified; I10 Essential (primary) hypertension; E66.9 Obesity, unspecified; R79.89 Other specified abnormal findings of blood chemistry; R22.42 Localized swelling, mass and lump, left lower limb; Z96.642 Presence of left artificial hip joint | CPT/HCPCS: 99397 ==

== ENCOUNTER 2025-03-22 08:01 | Outpatient (REF) | payer MEDICARE, SELFPAY ==
--- NOTE | 2025-03-22 08:06 | PFT_ITS ---
Indication: Cough Spirometry FEV1 to FVC 76%; FEV1 3.07 L; FVC 4.07 L. No significant response to bronchodilators noted Lung Volumes Total lung capacity 90% predicted Diffusion Capacity DLCO 127% predicted Comparisons None Interpretation No obstructive nor restrictive ventilatory defects identified. No significant response to bronchodilators noted. Normal flow volume loop. Lung volumes are within normal limits and the patient does have a significantly elevated diffusing capacity likely secondary to exogenous exposure to carbon monoxide from his smoking. If asthma is in the differential methacholine challenge may be helpful in assessing for hyperreactive airways. Otherwise clinical correlation warranted. MTDD
[2025-03-22 08:52] VITALS: PULSE 66; O2SAT 97
== END 2025-03-22 08:02 | disposition home or self-care (01) ==
LOC: HO.RESP 08:01
PROVIDERS: PCP Internal Medicine; Visit Provider Internal Medicine
DX: R05.9 Cough, unspecified (principal)
CPT/HCPCS: 94010; 94640; 94727; 94729

== ENCOUNTER → 2025-03-22 08:06 | Outpatient (BNV) | payer MEDICARE, SELFPAY | PROVIDERS: PCP Internal Medicine; Visit Provider Hospitalist | DX: R05.9 Cough, unspecified (principal) | CPT/HCPCS: 94060; 94727; 94729 ==

== ENCOUNTER 2025-03-31 13:32 | Outpatient (AMB) | payer MEDICARE, SELFPAY ==
--- NOTE | 2025-03-31 13:33 | A.OFFPC_ITS ---
Intake Visit Reasons: Discuss lab results Allergies No Known Allergies Allergy (Verified 03/31/25 13:33) Tobacco use date assessed: 02/10/25 Fall risk assessment: No Falls in past year Last assessed Fall Risk: 03/31/25 Dental Screening Dental Screen Date: 02/10/25 HPI Discuss lab results HPI Details Left message on the phone 15:01 patient had questions about the PFT that was done:No obstructive nor restrictive ventilatory defects identified. No significant response to bronchodilators noted. Normal flow volume loop. Lung volumes are within normal limits and the patient does have a significantly elevated diffusing capacity likely secondary to exogenous exposure to carbon monoxide from his smoking. If asthma is in the differential methacholine challenge may be helpful in assessing for hyperreactive airways. Otherwise clinical correlation warranted. [facility] Medical History (Updated 03/31/25 @ 15:55 by Mariaa Youngblood MD) Diabetes type 2, uncontrolled Obesity Diabetes mellitus SOB (shortness of breath) on exertion Preop exam for internal medicine Diabetes mellitus with coincident hypertension Atherosclerotic cardiovascular disease ELLYN (obstructive sleep apnea) Obesity (BMI 30-39.9) Hypertension Dyslipidemia senior care (current) use of insulin Surgical History History of YAG laser iridotomy of left eye History of right hip replacement Hx of colonoscopy Hx of colonoscopy History of uvulectomy History of removal of cyst History of tonsillectomy Family History Father Prostate cancer Mother Hypertension Hypercholesterolemia Maternal Grandmother Alzheimers disease Maternal Grandfather Heart disease Social History (Updated 02/10/25 @ 16:02 by Mariaa Youngblood MD) Housing: House Alcohol intake: current Alcohol intake frequency: 0-2 drinks per day Alcohol type: wine Comment: QD 1/2 bottle wine Patient Tobacco Use Status: Never used Tobacco Tobacco use type: Cigarette Years Smoked: smoke marijuana e-Cigarette/Vaping Use: Never Used Second Hand Smoke Exposure: No service: No Current occupational status: employed 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 Tommie Phillips, Edilia Ortiz, Domingo Marquez and colleagues, with an educational vasiliy from [employer]. Physical exam (Primary Care) Tobacco/Smoking Status: Tobacco use Status Tobacco use date assessed 02/10/25 03/31/25 13:34 Patient Tobacco Use Status Never used Tobacco 03/31/25 13:34 Tobacco use type Cigarette 03/31/25 13:34 e-Cigarette/Vaping Use Never Used 03/31/25 13:34 Thrive Assessment: Date of Thrive Assessment Date Thrive assessed 02/10/25 03/31/25 13:34 Telehealth Telehealth Telehealth Platform: Telephone Location of provider rendering services: practice address Location of patient: address on file Patient Identification confirmed using: Name, : Yes Telehealth method: voice only Patient verbally consented to treatment: Yes Patient verbally consented to billing insurance company: Yes Patient informed of any privacy concerns related to visit: Yes Coding Level of Care Code Tele Est Pt Level 3 (43084) Diagnoses Cough R05.9 Assessment & Plan Assessment & Plan (1) Cough: Comment: 2024 PFTo obstructive nor restrictive ventilatory defects identified. No significant response to bronchodilators noted. Normal flow volume loop. Lung volumes are within normal limits and the patient does have a significantly elevated diffusing capacity likely secondary to exogenous exposure to carbon monoxide from his smoking. If asthma is in the differential methacholine challenge may be helpful in assessing for hyperreactive airways. Otherwise clinical correlation warranted. Code(s): R05.9 - Cough, unspecified Category: Medical Plan: Cough has resolved. Discussed about the lung function tests. No obstructive or restrictive defects identified. Noted though significantly elevated diffusing capacity likely secondary to exogenous exposure to carbon monoxide from his smoking. Patient does smoke marijuana and that the smoking results in significant elevated diffusing capacity of carbon monoxide.. Patient is advised to refrain from smoking marijuana. Plan History of Present Illness Review of Systems Plan Patient was informed and verbally consented to the use of an ambient scribe for clinic note documentation during this visit. Discussion Notes Patient Instructions
--- OUTSIDE RECORDS SUMMARY | 2025-03-31 13:46 | XMS_ITS ---
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 Pt states he doesn???t notice the spot is there but we were made aware of it in the past. Medications Medication Generic Name RxNorm Strength Strength Unit Route Dose Dose Form Frequency Date Started Date Ended Status Indication Sig atorvastati n atorvast atin 20 mg Oral 1 table t qd active enalapril maleate enalapri l maleate 10 mg Oral 1 table t qd active metformin metformi n 500 mg Oral 2 table t BID active Lyumjev U-100 Insulin insulin lispro-a abc 100 unit/mL Subcut aneous 5-35 units solut ion qd active Tresiba U-100 Insulin insulin degludec 100 unit/mL Subcut aneous 28 units solut ion qHS active Problems Problem Code Type Status Date of Diagnosis Da te of Resolution Benign neoplasm of skin of left lower limb (disorder) 324077439590 9109(SNOMED) Diagnosis active 03/28/2025 Neoplasm of uncertain behavior of skin (disorder) 90333387(SNO MED) Diagnosis active 03/28/2025 Melanocytic nevus of trunk (disorder) 223464732(SN OMED) Diagnosis active 03/28/2025 Hemangioma of skin and subcutaneous tissue (disorder) 713977513(SN OMED) Diagnosis active 03/28/2025 Hypertrophic condition of skin (disorder) 43026932(SNO MED) Diagnosis active 10/16/2021 Seborrheic keratosis (disorder) 968861464(SN OMED) Diagnosis active 10/16/2021 Melanocytic nevus of trunk (disorder) 728026971(SN OMED) Diagnosis active 10/16/2021 Melanocytic nevus of left upper limb (disorder) 444873138550 103(SNOMED) Diagnosis active 10/16/2021 Benign neoplasm of skin of left lower limb (disorder) 246663131396 9109(SNOMED) Diagnosis active 10/16/2021 Other specified health status Z78.9(ICD-10 ) Diagnosis active 08/23/2018 Benign neoplasm of skin of trunk (disorder) 56121927(SNO MED) Diagnosis active 08/23/2018 Diabetes mellitus (disorder) 82691238(SNO MED) Problem active Increased blood pressure (finding) 34414816(SNO MED) Problem active Results No data Encounters Service provided at [address], [address], [place], [place] [id number]. Office phonenumber is [phone]. Office fax number is [phone]. Encounter Diagnosis Location Date / Time Type Dermatofibroma (D23.72)Neopl asm of Uncertain Behavior (D48.5)Compound Nevi (D22.5)Kennedy Angiomas (D18.01) [place] 03/28/2025 15:30:00 [facility] [id number] 3 Reason For Referral No data Procedures Procedure Date Documentation of current medications (pr ocedure) 03/28/2025 12:00 am [facility] Shave biopsy (procedure) 03/28/2025 12:0 0 am [facility] Documentation of past medical history (p rocedure) Total replacement of right hip joint (pr ocedure) Documentation of past medical history (p rocedure) Total replacement of left hip joint (pro cedure) Documentation of past medica l history (procedure) Cataracts surgery (bilateral eyes) Total replacement of right hip joint (pr ocedure) 01/2024 Total replacement of left hip joint (pro cedure) 10/2024 Review Of Systems Provider reviewed on Mar 28, 2025.A complete review of systems was performed.No Problems With Healing, No Problems With Scarring (hypertrophic Or Keloid), No Problems With Bleeding, No Immunosuppression, No Hay Fever, No Chest Pain, No Fever Or Chills, No Night Sweats, No Unintentional Weight Loss,No Thyroid Problems, No Sore Throat, No Blurry Vision, No Abdominal Pain, No Bloody Stool, No Bloody Urine, No Joint Aches, No Muscle Weakness, No Neck Stiffness, No Headaches, No Seizures, No Shortness Of Breath, No Wheezing, No Anxiety, And No Depression. Assessment 1.DermatofibromaCounselingBiopsy by Shave Method: left proximal pretibial region; Medications Given- Amoxicillin - 2 grams PO x 1 hour prior to procedure.Photo-Documentation:.2.Neoplasm of UncertainBehavior - Possibly NevusCounseling3.Compound NeviCounseling4.Kennedy AngiomasCounseling Plan of Care Future visit for 03/28/2027 - Follow up in 2 years for: Skin Check. Other Instructions: 10CSE, Willcall pt with bx result. Other Instructions: 10CSE, Will call pt with bx result. Instructions * I counseled the patient regarding the following:Skin care: Dermatofibromas are benign. They should be surgically removed if symptomatic or if they grow.Expectations: Dermatofibromas are stable scar-like nodules, usually located on the lower extremities. * I counseled the patient regarding the following:Instructions: Neoplasms of Uncertain Behavior can be observed, biopsied or surgically removed depending on the level of clinical suspicion.Instructions: Neoplasms of Uncertain Behavior can be observed, biopsied or surgically removed depending on the le loretta of clinical suspicion.Contact Office if: patient develops any new lesions that fail to heal, ulcerate or bleed. * I counseled the patient regarding the following:Expectations: Benign Nevi are pigmented nests of cells within the skin.Contact Office if: Any moles change in size, shape or color; itch, burn or bleed.I recommended the following: Broad Spectrum Sunscreen SPF 30+Self-Skin Exams * I counseled the patient regarding the following:Skin Care: Kennedy Angiomas can resolve with lasers or electrodesiccation.Expectations: Kennedy Angiomas are benign vascular growths. No treatment is necessary. Social History Code Activity Start Date End Date [id number] (SNOMED) Unknown if ever smoked Sex male Sexual orientation Unspecified Gender identity Unspecified Vital Signs No data
== END 2025-03-31 16:04 | disposition home or self-care (01) ==
LOC: HO.HMCH 13:32
PROVIDERS: PCP Internal Medicine; Visit Provider Internal Medicine
DX: R05.9 Cough, unspecified (principal)

== ENCOUNTER 2025-04-14 09:02 | Outpatient (REF) | payer MEDICARE, SELFPAY ==
--- OUTSIDE RECORDS SUMMARY | 2024-04-21 04:15 | XMS_ITS ---
Author Organization [facility] Address [address] [place] [address] Care Team Providers Care Automatic Car Wash Attendant Name Role Phone Mariaa Youngblood Primary Care Provider Marie Saenz [phone] REASON FOR VISIT soon sooner Encounters Encounter Location Date Provider Diagnosis [facility] [address] [place] [address] 04/21/2024 Marie Norton Plan Of Treatment Next Appt Details Provider Name:Marie Norton , 06/27/2025 08:30:00 AM, [address] [place], [address], Progress Notes * TATIANA, YayoDOB:1955 ([age] yo M)Acc No.[id number]:04/21/2024 Progress Note Patient: Yayo TREVIÑO Provider: Nick Norton DPM :1955 A ge:68 Y S ex:Male Date:04/21/2024 Address:[address] [place] [address] [address] [facility] Pcp:Mariaa Youngblood Subjective: * Chief Complaints: * [...] Date: 1 Generated for Raquel floyd/Dawood/Letty on: 09:27 AM EDT
--- NOTE | ~2025-04-14 | US_ITS ---
CLINICAL HISTORY: R79.89 - Other specified abnormal findings of blood chemistry US abdomen complete Comparison: None Provided Findings: Gallbladder unremarkable, no stone formation or wall thickening. Common duct measures 2.6 mm. No sonographic Roque sign. Fatty infiltration of the liver with focal fatty sparing. Main portal vein patent with normal direction of flow. Pancreas is unremarkable. Aorta and IVC patent and normal in caliber. The right kidney is normal, 12.2 cm in length. No focal abnormality or hydronephrosis. The left kidney is normal, 11.7 cm in length. No focal abnormality or hydronephrosis. The spleen is normal, 11.5 cm in length. No focal abnormality. Impression: Fatty infiltration of the liver Otherwise unremarkable This document has been electronically signed by: Paul Zurita MD on 04/14/2025 19:36:57
--- NOTE | ~2025-04-14 | XR_ITS ---
EXAMINATION: XR CHEST 2 VIEWS HISTORY: R79.89 - Other specified abnormal findings of blood chemistry COMPARISON: Comparison is made with the prior examination dated 11/03/2024. FINDINGS: PA and lateral views of the chest are submitted. The lungs remain hyperinflated, consistent with COPD. The lungs are clear. There is no pleural effusion, pneumothorax, or pulmonary vascular congestion. The heart is normal in size. Again seen are multiple old healed left rib fractures. There is mild degenerative disc disease of the spine. XR/XR chest 2V IMPRESSION: COPD. No acute cardiopulmonary abnormality. Electronically signed by: Tommie Brown MD 04/14/2025 09:36 AM EDT
--- OUTSIDE RECORDS SUMMARY | 2025-04-14 09:27 | XMS_ITS | Patient Health Record ---
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 Name Role Phone Mariaa Youngblood Primary Care Provider Unavailabl e Black, Marie Unavailable [phone] Allergies No Known Allergies Results Component Value Reference Range Notes HEMOGLOBIN A1C (GLYCOHEMOGLO BIN) Reviewed date:06/20/2024 08:35:17 AM Interpretation: Performing Lab: Notes/Report: HEMOGLOBIN A1C % (HH) 7.3 HEMOGLOBIN A1C (GLYCOHEMOGLO BIN) Reviewed date:03/27/2025 08:52:13 AM Interpretation: Performing Lab: Notes/Report: HEMOGLOBIN A1C % (HH) 7.7 Reason For Referral No Information Medications Medication SIG (Take, Route, Frequency, Duration) Notes Start Date End Date Status Basaglar KwikPen 100 UNIT/ML as directed Subcutaneous Not -Taking Extra Depth Orthopedic Shoes (1 Pair) with Customized Heat Molded Multidensity Innersoles (3 Pair) as directed Dx: NIDDM/Polyneuropathy (E11.42), Hammertoe Foot Deformity (M20.41,M20.42), Preulcerative Skin Lesion(s) (L85.1 09/23/2021 Not-Taking HumaLOG 100 UNIT/ML as directed Subcutaneous Not-Taking Tresiba Active Tresiba FlexTouch No t-Taking Sildenafil Citrate N ot-Taking Atorvastatin Calcium Active NovoLOG 100 UNIT/ML 15 to 25 unit Subcutaneous daily Not-Taking Enalapril Maleate Ac tive Fiasp 100 UNIT/ML Subcutaneous Not-Taking metFORMIN HCl 1000 MG 1 tablet with meal s Orally Twice a day Active Lyumjev 100 UNIT/ML INJECT 5 TO 35 UNITS UNDER THE SKIN BEFORE MEALS AND SNACKS 5 TIMES DAILY DIRECTED Injection; Duration: 27 Active Lovastatin Not-Takin g Ammonium Lactate 12 % 1 application Exte rnally Twice a day; Duration: 30 days Not-Taking FreeStyle System Not -Taking Immunizations Vaccine Route Administration Date Status Comme [...] stop date) Never Smoker NA - NA Alcohol Screen Question Answer Notes Did you [...] Are you an other tobacco user? No Tobacco Control (Standard) Question Answer Notes Tobacco use: Nonsmoker Additional Findings: Tobacco non-user Current no nsmoker AUDIT-C (Standard) Question Answer Notes Did you have a drink contain ing alcohol in the past year? Yes How often did you have a dri nk containing alcohol in the past year? Daily or almost daily (4 points) How many drinks did you have on a typical day when you were drinking in the past year? 1 or 2 drinks (0 point) How often did you have six o r more drinks on one occasion in the past year? Never (0 point) Points 4 Interpretation Positive Problems Problem Type SNOMED Code ICD Code Onset Dates Problem Status W/U Status Risk Notes Problem Acquired hammer toe of right foot (1481813793846709 ) Other hammer toe(s) (acquired), right foot (M20.41) Active confirmed Problem Acquired hammer toe of left foot (3061910765828192 ) Other hammer toe(s) (acquired), left foot (M20.42) Active confirmed Problem Polyneuropathy due to type 2 diabetes mellitus (158516871) Type 2 diabetes mellitus with diabetic polyneuropathy (E11.42) Active confirmed Vital Signs Blood pressure diastolic 80 mm Hg 03/27/2025 Height 5ft 7in in 03/27/2025 Blood pressure systolic 120 mm Hg 03/27/2025 Weight 216 lbs 03/27/2025 BMI 33.83 kg/m2 03/27/2025 Procedures Procedure Date Ordered Date Performed Result Body Sit e 77586-LCUO SKIN LESIONS, OVER 4 06/20/2024 N/A B8564-FYESYKHY DYSTROPHIC NAILS ANY # 06/20/2024 N/A 65463-VYZM SKIN LESIONS, OVER 4 2024 N/A G8674-ZDEXSVKF DYSTROPHIC NAILS ANY # 2024 N/A 30582-RQHK SKIN LESIONS, OVER 4 12/26/2024 N/A C7200-ODYYKBCT DYSTROPHIC NAILS ANY # 12/26/2024 N/A 52015-MVSC SKIN LESIONS, OVER 4 03/27/2025 N/A P1963-RPNSTHPO DYSTROPHIC NAILS ANY # 03/27/2025 N/A Encounters [facility] Date [facility] [address] [facility] Marie Black Type 2 diabetes mellitus with diabetic polyneuropathy E11.[address] [address] 2024 Marie Black Type 2 diabetes mellitus with diabetic polyneuropathy E11.[address] [address] 12/26/2024 Marie Black Type 2 diabetes mellitus with diabetic polyneuropathy E11.42 ; Other hammer toe(s) (acquired), right foot M20.41 and Other hammer toe(s) (acquired), left foot M20.[address] [address] 03/27/2025 Marie Black Pain in right toe(s) M79.674 ; Contusion of lesser toe of right foot with damage to nail, initial encounter S90.221A and Type 2 diabetes mellitus with diabetic polyneuropathy [...] mellitus with diabetic polyneuropathy (ICD-10 - E11.42) 03/27/2025 Pain in right toe(s) (ICD-10 - M79.674) 03/27/2025 Contusion of lesser toe of right foot with damage to nail, initial encounter (ICD-10 - S90.221A) 03/27/2025 Type 2 diabetes mellitus with diabetic polyneuropathy (ICD-10 - E11.42) 12/26/2024 Other hammer toe(s) (acquired), left foot (ICD-10 - M20.42) Plan Of Treatment Pending Test Test Name Order Date 95434- Debride <25 sq cm 10/30/2016 22019-IVQO SKIN LESIONS, OVER 4 08/27/19 18 23800-SMIU SKIN LESIONS, OVER 4 11/27/19 18 45694-ZWGF SKIN LESIONS, OVER 4 02/26/20 18 25010-OUGS SKIN LESIONS, OVER 4 05/27/20 18 70046-QWCC SKIN LESIONS, OVER 4 08/26/19 19 41369-NBFU SKIN LESIONS, OVER 4 11/26/19 19 86565-ASDQ SKIN LESIONS, OVER 4 02/25/20 19 49971-TPVY SKIN LESIONS, OVER 4 06/02/20 19 71166-GIGO SKIN LESIONS, OVER 4 08/03/19 20 34442-PPTM SKIN LESIONS, OVER 4 09/15/19 20 89400-XOOB SKIN LESIONS, OVER 4 12/08/19 20 40009-IIIF SKIN LESIONS, OVER 4 01/26/20 20 37657-BVSE SKIN LESIONS, OVER 4 03/15/20 20 07029-TOXH SKIN LESIONS, OVER 4 04/26/20 20 24714-RARC SKIN LESIONS, OVER 4 06/14/20 41839-EITD SKIN LESIONS, OVER 4 07/19/19 65384-MJCB SKIN LESIONS, OVER 4 09/06/19 76631-YAWC SKIN LESIONS, OVER 4 10/19/19 56859-KTWG SKIN LESIONS, OVER 4 11/27/19 75377-NPCM SKIN LESIONS, OVER 4 02/22/20 99113-ZPBJ SKIN LESIONS, OVER 4 05/20/20 38964-SSZP SKIN LESIONS, OVER 4 08/05/19 19383-ILIJ SKIN LESIONS, OVER 4 09/24/19 30353-IBYH SKIN LESIONS, OVER 4 11/26/19 18521-JDKY SKIN LESIONS, OVER 4 02/11/20 70206-MVMK SKIN LESIONS, OVER 4 05/08/20 44521-CPUW SKIN LESIONS, OVER 4 07/31/19 52963-UOHD SKIN LESIONS, OVER 4 10/10/19 51240-IHBD SKIN LESIONS, OVER 4 12/19/19 26569-WYML SKIN LESIONS, OVER 4 02/20/20 37173-PRTW SKIN LESIONS, OVER 4 04/30/20 62134-LWKT SKIN LESIONS, OVER 4 07/23/19 32189-AEDL SKIN LESIONS, OVER 4 09/24/19 91772-UOXC SKIN LESIONS, OVER 4 12/10/19 18655-ECAO SKIN LESIONS, OVER 4 03/17/20 30932-CHCE SKIN LESIONS, OVER 4 06/20/20 08188-HYKD SKIN LESIONS, OVER 4 09/20/19 17767-GSZS SKIN LESIONS, OVER 4 12/27/19 59229-TSMI SKIN LESIONS, OVER 4 03/27/20 46368-RQXA SKIN LESIONS, 2 TO 4 10/31/19 31130-FXBW SKIN LESIONS, 2 TO 4 02/27/20 86452-FJDW SKIN LESIONS, 2 TO 4 05/28/20 61474-UWYF SKIN LESION 07/31/2016 36273-XQGD NAIL(S) 07/31/2016 82667-AETU NAIL(S) 10/30/2016 41546-KAKQ NAIL(S) 02/26/2017 90698-RPWK NAIL(S) 05/28/2017 30227-XRJK NAIL(S) 08/27/2017 98307-TEXG NAIL(S) 08/26/2018 24976-JDHX NAIL(S) 05/27/2018 13667-ITVH NAIL(S) 02/25/2018 52067-JGQE NAIL(S) 11/26/2017 99525-RYEZ NAIL(S) 03/15/2020 87223-AXAK NAIL(S) 01/26/2020 62438-UZZX NAIL(S) 12/08/2019 57969-ALZF NAIL(S) 09/15/2019 96407-ZNAB NAIL(S) 08/03/2019 83305-PZNP NAIL(S) 06/02/2019 68189-PAAW NAIL(S) 02/24/2019 60842-KYSQ NAIL(S) 11/25/2018 73013-ZPIB NAIL(S) 07/31/2022 47165-WOBK NAIL(S) 05/08/2022 69467-VWAF NAIL(S) 02/10/2022 95690-QLAS NAIL(S) 11/25/2021 02117-PHIC NAIL(S) 09/23/2021 12455-JFZW NAIL(S) 08/05/2021 02248-UZBK NAIL(S) 05/20/2021 31256-HBKH NAIL(S) 02/21/2021 31101-COZJ NAIL(S) 11/26/2020 60915-GGYQ NAIL(S) 10/18/2020 56189-MBSA NAIL(S) 09/06/2020 22611-RVDS NAIL(S) 07/19/2020 06499-EIOG NAIL(S) 06/14/2020 66345-JUYV NAIL(S) 04/26/2020 K5845-RLTSUPMB DYSTROPHIC NAILS ANY # H3121-SMHHRNAU DYSTROPHIC NAILS ANY # L8899-VAIQHKDO DYSTROPHIC NAILS ANY # Y0248-VELVJCDH DYSTROPHIC NAILS ANY # O6138-PILEVVBT DYSTROPHIC NAILS ANY # N9923-AAEFBLTH DYSTROPHIC NAILS ANY # W6501-VJMRVJGI DYSTROPHIC NAILS ANY # N1207-HHUWUCWL DYSTROPHIC NAILS ANY # T7368-XCXKQZPZ DYSTROPHIC NAILS ANY # Y9124-MWANKMIY DYSTROPHIC NAILS ANY # E1264-JAXBMJKP DYSTROPHIC NAILS ANY # I5316-LMBKBKVB DYSTROPHIC NAILS ANY # Next Appt Details Provider Name:Marie Norton , 06/27/2025 08:30:00 AM, [address], [place], [address], Insurance Providers Payer Name Payer Address Payer Phone Subscriber Number Group Number Insured Name Patient Relationship to Insured Coverage Start Date Coverage End Date Medicare National [employer] [address] [place] [address] [id number] Yayo Simpson Self - patient is the insured A[employer] Secondary to Medicare [address] [place] [address] [id number] Yayo Simpson Self - patient is the [...]
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
[2025-04-14 14:27] LABS: Alanine Aminotransferase 28 U/L (0-40); Albumin Level 5.0 g/dL (3.5-5.0); Alkaline Phosphatase 75 U/L (39-117); Anion Gap 12 (12-20); Aspartate Amino Transferase 25 U/L (5-37); Blood Urea Nitrogen 12 mg/dL (9-16); Calcium 9.6 mg/dL (8.4-10.2); Carbon Dioxide 29 mmol/L (22-29); Chloride 103 mmol/L (96-108); Estimated Glomerular Filt Rate > 60; Potassium 4.5 mmol/L (3.3-5.1); Sodium 139 mmol/L (135-145); Total Protein 6.9 g/dL (6.5-8.0)
[2025-04-15 04:25] LABS: HBS Num1 0.16 mIU/mL (0-7.99); HBc Num1 0.05 S/CO (0.00-0.79); HBsAGNum1 0.41 S/CO (0.00-0.99); Hepatitis B Surface Antigen Negative (Negative); ~HepC Num1 0.05 S/CO (0.00-0.79); ~Hepatitis B Surface Antibody NONREACTIVE (Nonreactive); ~Hepatitis C Antibody Nonreactive (Nonreactive)
== END 2025-04-14 09:03 | disposition home or self-care (01) ==
LOC: HO.HMGCX 09:02
PROVIDERS: PCP Internal Medicine; Visit Provider Internal Medicine
DX: R79.89 Other specified abnormal findings of blood chemistry (principal)
CPT/HCPCS: 36415; 71046; 76700; 80053; 86704; 86706; 86803; 87340

== ENCOUNTER → 2025-04-14 09:11 | Outpatient (BNV) | payer MEDICARE, SELFPAY | PROVIDERS: PCP Internal Medicine; Visit Provider Radiology Diagnostic Radiology | DX: J44.9 Chronic obstructive pulmonary disease, unspecified (principal) | CPT/HCPCS: 71046 ==

== ENCOUNTER 2025-06-14 10:13 | Outpatient (AMB) | payer MEDICARE, SELFPAY ==
[2025-06-14 10:19] VITALS: BP 138/74; PULSE 69; O2SAT 98; BMI 33.0
--- NOTE | 2025-06-14 10:19 | MHC.PC.OV ---
Vital Signs 06/14/25 10:19 Height 5 ft 8 in Weight 217 lb BMI 33.0 BP 138/74 Blood Pressure Location Lt brachial Position Sitting Pulse 69 Pulse Source Pulse Oximeter Pulse Oximetry (%) 98 Oxygen Delivery Method Room Air Intake Visit Reasons: follow up Allergies No Known Allergies Allergy (Verified 06/14/25 10:19) Medication List - Last Reconciled 06/14/25 by Mariaa Youngblood MD atorvastatin 20 mg PO BEDTIME 90 days blood-glucose sensor (Dexcom G6 Sensor device) As directed every 10 days blood-glucose transmitter (Dexcom G6 Transmitter device) As directed one every 3 months blood-glucose,hearth feeder,cont (Dexcom G6 Histological Illustrator) As directed enalapril maleate 10 mg PO DAILY 90 days insulin degludec (Tresiba FlexTouch U-200 insulin) 28 units (0.14 mL) subcut BEDTIME insulin lispro-aabc (Lyumjev U-100 Insulin) 3-15 units before meals and snacks subcut up to five times a day; 90 days MDD 48 units insulin syringe-needle U-100 5 times a day metformin ER 1,000 mg (2 x 500 mg) PO BID 90 days pen needle, diabetic As directed Use 1x daily tadalafil (Cialis) 20 mg PO DAILY PRN Tobacco use date assessed: 02/10/25 Fall risk assessment: No Falls in past year Last assessed Fall Risk: 06/14/25 Dental Screening Dental Screen Date: 02/10/25 HPI HPI Comments History of Present Illness Details History of Present Illness The patient is a 69 year old individual presenting for a follow-up visit for management of multiple chronic medical conditions and evaluation of new symptoms. The patient has a history of obesity, hypercholesterolemia, hypertension, and type 2 diabetes mellitus. For diabetes, the patient's hemoglobin A1c is currently 6.8%, which is an improvement from a prior value of 7.4%. The patient is on Tresiba and metformin and uses a Dexcom for glucose monitoring. An ophthalmology exam on April 18, 2025, showed no evidence of diabetic retinopathy. Regarding the patient's liver, an abdominal ultrasound performed for elevated liver function tests revealed hepatic steatosis. A hepatitis profile was negative. The last cholesterol test in January 2025 showed an LDL level below the goal of 100 mg/dL. The patient has a history of obstructive sleep apnea and is status post uvulopalatopharyngoplasty. A chest X-ray showed hyperinflated lungs consistent with COPD, which is attributed to a history of smoking marijuana. Pulmonary function tests from March 22 showed no significant restrictive or obstructive defects. Presently, the patient reports new onset of significant fatigue and tiredness occurring about four days a week, sometimes feeling sleepy an hour after waking. The patient also complains of intermittent, watery diarrhea occurring three to four times a week in the afternoons for the past month. Health Maintenance - Diabetic eye exam: Completed on April 18, 2025; no retinopathy was found. - Vaccinations: Hepatitis B vaccination was discussed; it is recommended for individuals with potential exposure to blood products, which the patient denied. - Lifestyle: Diet and exercise have been advised for cholesterol management, and healthy eating with weight loss is recommended for managing hepatic steatosis. Social History - Substance Use: The patient reports a history of smoking marijuana. - Activity Level: The patient reports feeling completely out of shape, suggesting a low level of physical activity. Results - Labs: - Hemoglobin A1c (today): 6.8%. - Complete Blood Count (February 07): Normal. - Lipid Panel (January 2025): LDL was less than 100 mg/dL. - Hepatitis Profile: Negative. - Imaging: - Abdominal Ultrasound: Showed hepatic steatosis. - Chest X-ray: Showed hyperinflated lungs, consistent with COPD. - Tests and Diagnostics: - Ophthalmology Exam (April 18, 2025): No retinopathy. - Pulmonary Function Test (March 22): No restrictive or obstructive defects. 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 Surgical History History of YAG laser iridotomy of left eye History of right hip replacement Hx of colonoscopy Hx of colonoscopy History of uvulectomy History of removal of cyst History of tonsillectomy Family History Father Prostate cancer Mother Hypertension Hypercholesterolemia Maternal Grandmother Alzheimers disease Maternal Grandfather Heart disease Social History (Updated 02/10/25 @ 16:02 by Mariaa Youngblood MD) Housing: House Alcohol intake: current Alcohol intake frequency: 0-2 drinks per day Alcohol type: wine Comment: QD 1/2 bottle wine Patient Tobacco Use Status: Never used Tobacco Tobacco use type: Cigarette Years Smoked: smoke marijuana e-Cigarette/Vaping Use: Never Used Second Hand Smoke Exposure: No service: No Current occupational status: employed 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[employer] Cognitive needs: No Hearing needs: No Vision needs: Yes (glasses) Questionnaire Thrive Questionnaire Date Thrive assessed: 02/03/25 I am a: Patient What is your living situation today?: I have a steady place to live Within the past 12 months, did the food you bought not last and you didn't have the money to get more?: Never true Within the past 12 months, did you worry whether your food would run out before you got money to buy more?: Never true Do you have trouble paying for medicines?: No Do you have trouble getting transportation to medical appointments?: No Do you have trouble paying your heating and electricity bill?: No Do you have trouble taking care of your child, family member or friend?: No Do you have trouble with day-to-day activities such as bathing, preparing meals, shopping, managing finances, etc.?: No Are you currently unemployed and looking for a job?: No Are you interested in more education?: No Please select the resources that you would like help with: None Currently or been in a relationship where the following occur: No concerns reported THRIVE Score: 0 RHINA-7 AMB Questionnaire RHINA-7 Date RHINA - 7 assessed: 02/10/25 Source: Developed by Drs. Tommie Phillips, Edilia Ortiz, Domingo Marquez and colleagues, with an educational vasiliy from [employer]. Review of Systems Narrative Review of Systems - Constitutional: Reports significant fatigue and tiredness, approximately 4 days per week. - Gastrointestinal: Reports intermittent watery diarrhea occurring 3-4 times per week in the afternoon for the past month. - Respiratory: Denies dyspnea and chest tightness. Physical exam (Primary Care) Vital Signs: Last Vital Signs Pulse 69 06/14/25 10:19 BP 138/74 06/14/25 10:19 Pulse Ox 98 06/14/25 10:19 Oxygen Delivery Method Room Air 06/14/25 10:19 BMI result Body Mass Index 33.0 Tobacco/Smoking Status: Tobacco use Status Tobacco use date assessed 02/10/25 06/14/25 10:20 Patient Tobacco Use Status Never used Tobacco 06/14/25 10:20 Tobacco use type Cigarette 06/14/25 10:20 e-Cigarette/Vaping Use Never Used 06/14/25 10:20 Thrive Assessment: Date of Thrive Assessment Date Thrive assessed 02/03/25 06/14/25 10:20 Currently or been in a relationship where the following occur: No concerns reported Narrative Physical Exam Const General: alert; No acute distress Eyes Conjunctivae: conjunctivae normal Resp Auscultation: clear to auscultation bilaterally Cardio Rate: regular rate Rhythm: regular rhythm GI Inspection: Yes normal to inspection Extrem General: Yes normal to inspection and No edema Results AMB Hemoglobin A1c AMB Hemoglobin A1c 6.8 % Last Edit by Lupe Wilson CMA on 06/14/25 11:02 Results Reviewed Results Reviewed: Laboratory Last Values Hgb A1c (Clinic) 6.8 % (4.0-6.0) H 06/14/25 10:20 Coding Level of Care Code Est Pt Level 4 (05055) Complex visit Add On G2211 Diagnoses Type 2 diabetes mellitus with hyperglycemia E11.65 Hypertension I10 Dyslipidemia E78.5 Hepatic steatosis K76.0 ELLYN (obstructive sleep apnea) G47.33 Assessment & Plan Assessment & Plan (1) Type 2 diabetes mellitus with hyperglycemia: Code(s): E11.65 - Type 2 diabetes mellitus with hyperglycemia Category: Medical Plan: Decrease the amount of carbohydrate intake, pasta, bread, rice and potatoes are all sugar and that is aside from all the sweet stuff, remember that fruits are good but they are Sweet also. Hemoglobin A1c goal of less than 7.0 preferably below 6.5. Patient on Tresiba, lispro insulin metformin. PAtient uses the CGM Dexcom to control the DM and this helps a lot (2) Hypertension: Code(s): I10 - Essential (primary) hypertension Category: Medical Plan: Continue with blood pressure medication. Decrease salt intake and exercise enalapril 10 mg once a day (3) Dyslipidemia: Code(s): E78.5 - Hyperlipidemia, unspecified Category: Medical Plan: Avoid fried foods, chicken skin, eggs, butter margarine, pastries and meat. Be it pork or beef they have a lot of cholesterol LDL goal of less than 100 and triglyceride of less than 150 January 2025 last blood work (4) Hepatic steatosis: Code(s): K76.0 - Fatty (change of) liver, not elsewhere classified Category: Medical Plan: Low-fat diet and exercise (5) ELLYN (obstructive sleep apnea): Comment: No CPAP at present, uveopalatopharyngoplasty Code(s): G47.33 - Obstructive sleep apnea (adult) (pediatric) Category: Medical Plan Plan Patient was informed and verbally consented to the use of an ambient scribe for clinic note documentation during this visit. 1. Type 2 Diabetes Mellitus The patient's hemoglobin A1c is 6.8%, which is at goal. The patient will continue current medications including Tresiba and metformin. The patient was encouraged to continue lifestyle efforts to further improve glycemic control. The patient will continue using the Dexcom for glucose monitoring and a refill will be provided. 2. Fatigue The patient reports significant fatigue. The differential diagnosis includes medication side effects and residual obstructive sleep apnea, as the prior uvulopalatopharyngoplasty is not always 100% curative. A home sleep study has been ordered to evaluate for ongoing sleep apnea. 3. Diarrhea The patient reports intermittent watery diarrhea for the past month, which may be a side effect of metformin. An option discussed is to decrease the metformin dose to 500 mg twice daily to see if symptoms resolve. If the problem persists, stool testing for infectious organisms could be considered. 4. Hypertension This is a stable chronic condition. The patient will continue the current antihypertensive medication regimen, which includes a 10 mg daily dose of one medication. 5. Hypercholesterolemia The patient's LDL cholesterol is at goal, below 100 mg/dL, per the last labs in January 2025. The patient will continue current management, including diet, exercise, and medication. 6. Hepatic Steatosis This was diagnosed on abdominal ultrasound and is attributed to weight and cholesterol. There is no medication for this condition; management focuses on lifestyle changes including a healthy diet and weight loss. 7. Chronic Obstructive Pulmonary Disease Chest X-ray findings are consistent with COPD, likely related to a history of smoking marijuana, which affects lung elasticity. Recent PFTs did not show significant obstruction or restriction, and the patient is asymptomatic. No intervention is required at this time; the plan is to monitor for symptoms. Discussion Notes I discussed the patient's lab results, noting the improvement in the hemoglobin A1c to 6.8%. I explained that while this is a good result, and no new medications are needed, the patient should continue lifestyle efforts to achieve a level closer to normal. I explained that the fatty liver diagnosis is related to weight and cholesterol and can cause liver scarring over time, emphasizing that the treatment is weight loss and a healthy diet. We reviewed the chest x-ray findings suggestive of COPD, which I explained are likely due to the patient's history of marijuana use affecting lung elasticity. As the patient is asymptomatic and PFTs were not severely abnormal, I advised that no treatment is needed at this time. Regarding the new complaint of fatigue, I discussed that the cause could be residual sleep apnea, as the prior UPPP surgery is not always 100% effective. Therefore, I have ordered a home sleep study. For the diarrhea, I explained that metformin is a common cause and we discussed the option of reducing the dose. Patient Instructions - Continue taking your current medications for diabetes, high blood pressure, and cholesterol as prescribed. - Continue to focus on a healthy diet and exercise. This will help with your blood sugar, cholesterol, and the fatty liver condition. - I have ordered a sleep study that you can do at home to check if your sleep apnea is contributing to your fatigue. 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 - Your diarrhea may be a side effect of your metformin medication. We discussed possibly lowering the dose if it continues. Please let me know if it does not improve. - Continue to use your Dexcom to monitor your blood sugar levels. A refill has been authorized. - The lung changes seen on your x-ray do not require any treatment at this time since you are not having any symptoms like shortness of breath. Orders: Orders RT home sleep study Today G47.33 - Obstructive sleep apnea (adult) (pediatric) AMB Hemoglobin A1c Today Z13.9 - Encounter for screening, unspecified Medications: Refilled tadalafil (Cialis) administer approximately 30min before sexual activity; do not use more than 1 dose per 24hrs 20 mg PO DAILY PRN 14 tabs 5RF sexual activity G47.33 - Obstructive sleep apnea (adult) (pediatric)
== END 2025-06-14 11:44 | disposition home or self-care (01) ==
LOC: HO.HMCH 10:15
PROVIDERS: PCP Internal Medicine; Visit Provider Internal Medicine
DX: E11.65 Type 2 diabetes mellitus with hyperglycemia (principal); I10 Essential (primary) hypertension; E78.5 Hyperlipidemia, unspecified; K76.0 Fatty (change of) liver, not elsewhere classified; G47.33 Obstructive sleep apnea (adult) (pediatric); Z13.9 Encounter for screening, unspecified

== ENCOUNTER → 2025-06-14 10:13 | Outpatient (BNVA) | payer MEDICARE, SELFPAY | PROVIDERS: PCP Internal Medicine; Visit Provider Internal Medicine | DX: E11.65 Type 2 diabetes mellitus with hyperglycemia (principal); E78.5 Hyperlipidemia, unspecified; I10 Essential (primary) hypertension; G47.33 Obstructive sleep apnea (adult) (pediatric); K76.0 Fatty (change of) liver, not elsewhere classified | CPT/HCPCS: 83036; 99212 ==

== ENCOUNTER 2025-06-22 13:56 | Outpatient (AMB) | payer MEDICARE, SELFPAY ==
--- OUTSIDE RECORDS SUMMARY | 2024-02-11 03:15 | XMS_ITS ---
Author Organization [facility] Address [address] [place] [address] Care Team Providers Care Executive Casino Host Name Role Phone Mariaa Youngblood Primary Care Provider Marie Saenz [phone] Encounters Encounter Location Date Provider Diagnosis [facility] [address] [place] [address] 02/11/2024 Marie Norton Plan Of Treatment Next Appt Details Provider Name:Marie Norton , 06/27/2025 08:30:00 AM, [address] [facility], [place], [address], Progress Notes * Yayo SIMPSONDOB:1955 ([age] yo M)Acc No.[id number]:02/11/2024 Progress Note Patient: Yayo TREVIÑO Provider: Nick Norton DPM :1955 A ge:68 Y S ex:Male Date:02/11/2024 Address:[address] [place], [place] [address] [facility] Pcp:Mariaa Youngblood Subjective: * Chief Complaints: * * Medical History: Objective: * Vitals: Assessment: Plan: * Treatment: * Images: * The named appointment provid er may or may not be the originator of this progress note, and it is not deemed complete until electronically signed by the appointment provider. Sign off status: Pending * Provider: Nick Norton DPM Date: 0 02/11/2024 Generated for Raquel floyd/Dawood/Letty on: 1 08/23/2024 09:20 PM EST
--- OUTSIDE RECORDS SUMMARY | 2024-04-21 03:15 | XMS_ITS ---
Author Organization [facility] Address [address] [place] [address] Care Team Providers Care Cash Register Operator Name Role Phone Mariaa Youngblood Primary Care Provider Marie Saenz [phone] REASON FOR VISIT soon sooner Encounters Encounter Location Date Provider Diagnosis [facility] [address] [place] [address] 04/21/2024 Marie Norton Plan Of Treatment Next Appt Details Provider Name:Marie Norton , 06/27/2025 08:30:00 AM, [address] [place] [address], [id number], Progress Notes * TATIANA, YayoDOB:1955 ([age] yo M)Acc No.[id number]:04/21/2024 Progress Note Patient: Yayo TREVIÑO Provider: Nick Norton DPM :1955 A ge:68 Y S ex:Male Date:04/21/2024 Address:[address] [place] [address] [address] [facility] Pcp:Mariaa Youngblood Subjective: * Chief Complaints: * 1 . Soon sooner. * Medical History: Objective: * Vitals: Assessment: Plan: * Treatment: * Images: * The named appointment provid er may or may not be the originator of this progress note, and it is not deemed complete until electronically signed by the appointment provider. Sign off status: Pending * Provider: Nick Norton DPM Date: 1 Generated for Raquel floyd/Dawood/Letty on: 1 08/23/2024 09:20 PM EST
--- NOTE | 2025-06-22 14:06 | MHC.PC.OV ---
Vital Signs 06/22/25 14:07 Height 5 ft 8 in Weight 220 lb 8 oz BMI 33.5 BP 152/76 H Blood Pressure Location Lt brachial Position Sitting Pulse 69 Pulse Source Pulse Oximeter Temp 97.3 F Temp Source Temporal Artery Scan Pulse Oximetry (%) 98 Oxygen Delivery Method Room Air Intake Visit Reasons: Bad cough Intake Note: Patient is here to follow up on Bad Cough. Rapid Outsole Stitcher Required: No Traverse Rod Assembler: Not Required per policy Accompanied by: Self / Same As Patient Allergies No Known Allergies Allergy (Verified 06/22/25 14:07) Tobacco use date assessed: 06/22/25 Fall risk assessment: No Falls in past year Last assessed Fall Risk: 06/22/25 Dental Screening Dental Screen Date: 02/10/25 HPI HPI Comments History of Present Illness Details History of Present Illness - The patient is a 69-year-old male presenting with an intermittent cough for the past three to four days. - He describes the cough as intermittent and mostly not deep, but occasionally deep, and it is particularly worse at night while sleeping. - He reports mild shortness of breath and postnasal drip in the mornings and around 5:00 PM daily, with one instance of yellow mucous after sneezing. - He also feels tired. - The patient has a history of diabetes, but his blood sugars have remained normal during this illness. - He has a known soft heart murmur and has seen a electronic engineering technician who cleared him. - He is up to date on his influenza, COVID, and RSV vaccinations. - There is no recent travel or sick contacts at home. 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 Results - No diagnostic results were discussed during the visit. [facility] Medical History (Updated 06/14/25 @ 11:15 by Mariaa Youngblood MD) Diabetes type 2, uncontrolled Obesity Diabetes mellitus SOB (shortness of breath) on exertion Preop exam for internal medicine Diabetes mellitus with coincident hypertension Atherosclerotic cardiovascular disease ELLYN (obstructive sleep apnea) Obesity (BMI 30-39.9) Hypertension Dyslipidemia USP (current) use of insulin Surgical History History of YAG laser iridotomy of left eye History of right hip replacement Hx of colonoscopy Hx of colonoscopy History of uvulectomy History of removal of cyst History of tonsillectomy Family History Father Prostate cancer Mother Hypertension Hypercholesterolemia Maternal Grandmother Alzheimers disease Maternal Grandfather Heart disease Social History (Updated 06/22/25 @ 14:09 by SADI Grajeda) Housing: House Alcohol intake: current Alcohol intake frequency: 0-2 drinks per day Alcohol type: wine Comment: QD 1/2 bottle wine Patient Tobacco Use Status: Never used Tobacco Tobacco use type: Cigarette Years Smoked: smoke marijuana e-Cigarette/Vaping Use: Never Used Second Hand Smoke Exposure: No Substance Use Type: Marijuana Substance Use Frequency: Daily service: No Current occupational status: employed 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[employer] Cognitive needs: No Hearing needs: No Vision needs: Yes (glasses) Questionnaire Thrive Questionnaire Date Thrive assessed: 02/03/25 I am a: Patient What is your living situation today?: I have a steady place to live Within the past 12 months, did the food you bought not last and you didn't have the money to get more?: Never true Within the past 12 months, did you worry whether your food would run out before you got money to buy more?: Never true Do you have trouble paying for medicines?: No Do you have trouble getting transportation to medical appointments?: No Do you have trouble paying your heating and electricity bill?: No Do you have trouble taking care of your child, family member or friend?: No Do you have trouble with day-to-day activities such as bathing, preparing meals, shopping, managing finances, etc.?: No Are you currently unemployed and looking for a job?: No Are you interested in more education?: No Please select the resources that you would like help with: None Currently or been in a relationship where the following occur: No concerns reported THRIVE Score: 0 RHINA-7 AMB Questionnaire RHINA-7 Date RHINA - 7 assessed: 02/10/25 Source: Developed by Drs. Tommie Phillips, Edilia Ortiz, Domingo Marquez and colleagues, with an educational vasiliy from [employer] Review of Systems Narrative Review of Systems - General: Reports fatigue. Denies fever, chills, or sweats. - Respiratory: Reports an intermittent cough for 3-4 days, sometimes deep, which is worse at night. Reports mild dyspnea. Denies wheezing. - HEENT: Reports postnasal drip and one episode of producing yellow mucous after sneezing. Denies nasal congestion. Physical exam (Primary Care) Vital Signs: Last Vital Signs Temp 97.3 F 06/22/25 14:07 Pulse 69 06/22/25 14:07 BP 152/76 H 06/22/25 14:07 Pulse Ox 98 06/22/25 14:07 Oxygen Delivery Method Room Air 06/22/25 14:07 BMI result Body Mass Index 33.5 Tobacco/Smoking Status: Tobacco use Status Tobacco use date assessed 06/22/25 06/22/25 14:11 Patient Tobacco Use Status Never used Tobacco 06/22/25 14:11 Tobacco use type Cigarette 06/22/25 14:11 e-Cigarette/Vaping Use Never Used 06/22/25 14:11 Thrive Assessment: Date of Thrive Assessment Date Thrive assessed 02/03/25 06/22/25 14:11 Currently or been in a relationship where the following occur: No concerns reported Narrative Physical Exam General: Appearance normal, both eyes and all related structures Nutritional Appearance: Well nourished Orientation/consciousness: Patient oriented x3 Limitations: No limitations Head: Normal to inspection Neck: Normal visual inspection Chest: Normal palpation of entire chest wall Respiratory: Slight shortness of breath noted Neurology: Patient oriented x3 Coding Level of Care Code Est Pt Level 3 (30384) Add On Problem Visit Only Diagnoses Upper respiratory infection J06.9 Assessment & Plan Assessment & Plan (1) Upper respiratory infection: Code(s): J06.9 - Acute upper respiratory infection, unspecified Plan Plan - Diagnosed with a respiratory tract infection. - Prescribed a 5-day course of azithromycin (Z-Regan), two pills on the first day, then one pill daily. - Prescribed prednisone, three pills daily for three days, to relieve cough symptoms. - Recommended itnt-tbm-ywohkor Robitussin DM every eight hours for cough. - Advised the patient to stay home from work if he feels tired, as he is contagious, but can go if he wears a mask and practices good hand hygiene. - Instructed the patient to make contact if his condition does not improve. Discussion Notes I informed the patient that his symptoms are consistent with a respiratory tract infection. I have prescribed azithromycin, a five-day antibiotic course, and prednisone for three days to alleviate the cough. I also recommended Robitussin DM for symptomatic relief. We discussed work precautions; I advised him he is contagious and should stay home if he feels tired but can return to work with a mask and proper handwashing. I instructed him to contact us if he does not feel better. Patient Instructions - You have been diagnosed with a respiratory tract infection. - Take azithromycin (Z-Regan) antibiotic as prescribed: Take two pills today, then one pill each day for the next four days. - Take prednisone as prescribed: Take three pills each day for three days to help with your cough. - You can take cewq-bqw-sidoyxm Robitussin DM every 8 hours to help with your cough. - You are contagious. If you feel tired, you should stay home from work. If you must go to work, wear a mask and wash your hands often. - If you do not start to feel better, please contact our office. Medications: New azithromycin take 500 mg today (day 1), then 250 mg for 4 days (days 2-5) PO 6 tabs 0RF prednisone 60 mg (3 x 20 mg) PO DAILY 9 tabs 0RF
[2025-06-22 14:07] VITALS: BP 152/76; PULSE 69; TEMP 36.3; O2SAT 98; BMI 33.5
--- OUTSIDE RECORDS SUMMARY | 2025-06-22 21:24 | XMS_ITS | Patient Health Record ---
Author Organization [facility] Address 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 Name Role Phone Mariaa Youngblood Primary Care Provider Unavailsophia e Black, Marie Unavailable [phone] Allergies No Known Allergies Results Component Value Reference Range Notes HEMOGLOBIN A1C (GLYCOHEMOGLO BIN) Reviewed date:03/27/2025 08:52:13 [...] Problem Acquired hammer toe of right foot (8966120628554461 ) Other hammer toe(s) (acquired), right foot (M20.41) Active confirmed Problem Acquired hammer toe of left foot (1143607120424928 ) Other hammer toe(s) (acquired), left foot (M20.42) Active confirmed Problem Polyneuropathy due to type 2 diabetes mellitus (557240445) Type 2 diabetes mellitus with diabetic polyneuropathy (E11.42) Active confirmed Vital Signs Blood pressure diastolic 80 mm Hg 03/27/2025 Height 5ft 7in in 03/27/2025 Blood pressure systolic 120 mm Hg 03/27/2025 Weight 216 lbs 03/27/2025 BMI 33.83 kg/m2 03/27/2025 Procedures Procedure Date Ordered Date Performed Result Body Sit e 31615-XIJF SKIN LESIONS, OVER 4 2024 N/A B1115-VAXTYSXF DYSTROPHIC NAILS ANY # 2024 N/A 25017-ABPO SKIN LESIONS, OVER 4 12/26/2024 N/A A0647-QKMPLMZW DYSTROPHIC NAILS ANY # 12/26/2024 N/A 28379-QNRC SKIN LESIONS, OVER 4 03/27/2025 N/A T9415-BITRZPVO DYSTROPHIC NAILS ANY # 03/27/2025 N/A Encounters Encounter Location Date Provider Diagnosis [address] [address] 2024 Marie Black Type 2 diabetes mellitus with diabetic polyneuropathy E11.42 [facility] [address] 12/26/2024 Marie Black Type 2 diabetes mellitus with diabetic polyneuropathy E11.42 ; Other hammer toe(s) (acquired), right foot M20.41 and Other hammer toe(s) (acquired), left foot M20.[address] [address] 03/27/2025 Marie Black Pain in right toe(s) [...] Treatment Pending Test Test Name Order Date 28632- Debride <25 sq cm 10/30/2016 81238-WBLI SKIN LESIONS, OVER 4 08/27/19 18 62211-PLJI SKIN LESIONS, OVER 4 11/27/19 18 51581-ETKF SKIN LESIONS, OVER 4 02/26/20 18 03594-LJSS SKIN LESIONS, OVER 4 05/27/20 18 01243-HSLI SKIN LESIONS, OVER 4 08/26/19 19 61415-CODG SKIN LESIONS, OVER 4 11/26/19 19 40679-MVCF SKIN LESIONS, OVER 4 02/25/20 19 04449-ZYTO SKIN LESIONS, OVER 4 06/02/20 19 10209-ANNW SKIN LESIONS, OVER 4 08/03/19 20 72325-KIDA SKIN LESIONS, OVER 4 09/15/19 20 04514-ALLI SKIN LESIONS, OVER 4 12/08/19 20 36181-YYLZ SKIN LESIONS, OVER 4 01/26/20 20 63397-GKEB SKIN LESIONS, OVER 4 03/15/20 20 65164-BLHJ SKIN LESIONS, OVER 4 04/26/20 20 03622-KAAR SKIN LESIONS, OVER 4 06/14/20 20 28036-RESB SKIN LESIONS, OVER 4 07/19/19 21 27575-QQPY SKIN LESIONS, OVER 4 09/06/19 21 23977-EAYI SKIN LESIONS, OVER 4 10/19/19 74702-FDAR SKIN LESIONS, OVER 4 11/27/19 51759-SFLX SKIN LESIONS, OVER 4 02/22/20 33547-GROM SKIN LESIONS, OVER 4 05/20/20 10157-IVMN SKIN LESIONS, OVER 4 08/05/19 59910-NBSJ SKIN LESIONS, OVER 4 09/24/19 53538-VLYH SKIN LESIONS, OVER 4 11/26/19 89149-RULX SKIN LESIONS, OVER 4 02/11/20 40334-NRYI SKIN LESIONS, OVER 4 05/08/20 74696-MVYJ SKIN LESIONS, OVER 4 07/31/19 23 21368-KGSA SKIN LESIONS, OVER 4 10/10/19 23 57535-INDW SKIN LESIONS, OVER 4 12/19/19 53652-RWTL SKIN LESIONS, OVER 4 02/20/20 23 24151-SKLG SKIN LESIONS, OVER 4 04/30/20 23 74551-OMJJ SKIN LESIONS, OVER 4 07/23/19 24 55340-FOEE SKIN LESIONS, OVER 4 09/24/19 55786-PONY SKIN LESIONS, OVER 4 12/10/19 14550-GUTQ SKIN LESIONS, OVER 4 03/17/20 36136-TNBI SKIN LESIONS, OVER 4 06/20/20 85880-EZFK SKIN LESIONS, OVER 4 09/20/19 50167-FBRU SKIN LESIONS, OVER 4 12/27/19 25 90480-ONOZ SKIN LESIONS, OVER 4 03/27/20 25 68338-BPEC SKIN LESIONS, 2 TO 4 10/31/19 17 23662-KPMB SKIN LESIONS, 2 TO 4 02/27/20 17 76391-RSBO SKIN LESIONS, 2 TO 4 05/28/20 17 34733-TKFI SKIN LESION 07/31/2016 09422-XETY NAIL(S) 07/31/2016 65832-EICJ NAIL(S) 10/30/2016 20950-IJMA NAIL(S) 02/26/2017 29095-GLNQ NAIL(S) 05/28/2017 34811-WQSO NAIL(S) 08/27/2017 81834-YEHK NAIL(S) 08/26/2018 79404-XJIS NAIL(S) 05/27/2018 16161-OTOA NAIL(S) 02/25/2018 68140-EGHD NAIL(S) 11/26/2017 76010-RDRK NAIL(S) 03/15/2020 12862-YKOV NAIL(S) 01/26/2020 44141-DABF NAIL(S) 12/08/2019 53612-ZBEM NAIL(S) 09/15/2019 51909-PEBX NAIL(S) 08/03/2019 46911-FGOM NAIL(S) 06/02/2019 20615-RJRA NAIL(S) 02/24/2019 23077-PINR NAIL(S) 11/25/2018 43872-ABCC NAIL(S) 07/31/2022 97298-ZKPH NAIL(S) 05/08/2022 83710-IJMR NAIL(S) 02/10/2022 48015-VYDI NAIL(S) 11/25/2021 51740-BCWC NAIL(S) 09/23/2021 00194-ARPZ NAIL(S) 08/05/2021 86598-YDLR NAIL(S) 05/20/2021 83283-GHZY NAIL(S) 02/21/2021 67533-UANB NAIL(S) 11/26/2020 05246-FAYD NAIL(S) 10/18/2020 54973-QVFW NAIL(S) 09/06/2020 32454-ICZL NAIL(S) 07/19/2020 96399-SWUM NAIL(S) 06/14/2020 46034-BLAE NAIL(S) 04/26/2020 Q0376-BVAQKAWH DYSTROPHIC NAILS ANY # X2142-VMCIHOSI DYSTROPHIC NAILS ANY # F9740-DDUAHZFQ DYSTROPHIC NAILS ANY # L5284-FBEATLAF DYSTROPHIC NAILS ANY # Y8978-QSLNLBMA DYSTROPHIC NAILS ANY # S2670-DTMCHMBW DYSTROPHIC NAILS ANY # O8197-PVOYOZVF DYSTROPHIC NAILS ANY # O7086-EJYCKYPF DYSTROPHIC NAILS ANY # F4582-PQWZCBXF DYSTROPHIC NAILS ANY # H7196-WDTNABRN DYSTROPHIC NAILS ANY # Q0387-LYYMCXLZ DYSTROPHIC NAILS ANY # H5691-ZXQIYSJY DYSTROPHIC NAILS ANY # Next Appt Details Provider Name:Marie Varela Errol , 06/27/2025 08:30:00 AM, [address] [facility], [place], [address], Insurance Providers Payer Name Payer Address Payer Phone Subscriber Number Group Number Insured Name Patient Relationship to Insured Coverage Start Date Coverage End Date Medicare National Govt [employer] [address] [place] [address] [id number] Yayo Simpson Self - patient is the insured AARP Secondary to Medicare [address] [place] [address] [id number] Yayo Simpson Self - patient is the [...]
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
== END 2025-06-22 14:38 | disposition home or self-care (01) ==
LOC: HO.HMCH 13:57
PROVIDERS: PCP Internal Medicine; Visit Provider Internal Medicine
DX: J06.9 Acute upper respiratory infection, unspecified (principal)

== ENCOUNTER → 2025-06-22 13:56 | Outpatient (BNVA) | payer MEDICARE, SELFPAY | PROVIDERS: PCP Internal Medicine; Visit Provider Internal Medicine | DX: J06.9 Acute upper respiratory infection, unspecified (principal) | CPT/HCPCS: 99212 ==